=== PATIENT | male | born 1965 | race Caucasian/White ===

== ENCOUNTER 2021-05-08 02:43 | Day surgery (SDC) | payer BC, SELFPAY ==
[2021-05-01 14:41] VITALS: BMI 27.1
--- NOTE | 2021-05-06 13:14 | PM.HPGS ---
History of Present Illness History of Present Illness Consent: Risks, benefits, and alternatives have been discussed and questions answered. Patient agrees to proceed with procedure. Chief complaint: GERD Narrative: Michael Ledbetter is a 55 year old male referred for investigation of Suspected reflux. a year ago he had an EGD elsewhere and was told that he had reflux and a hiatal hernia. A month after that he was started on pantoprazole. He has taking that ever since then. Now however for the past few months, he has had pain every several days that will be a transverse pain across the upper abdomen accompanied by an upwards pain just to the left of the midline of his chest. He states that is not heartburn. The pain will last all day, sometimes 2 days. He has also lost 35 lb and attributes this to the fact that he has no appetite. trying to eat makes him nauseated. He has been on pantoprazole 40 mg per day. He also takes sucralfate. He recently had a Cologuard test that was negative. He had been referred for colonoscopy as well, but became aware of the fact that insurance will pay for 1 or the other but not both in the same year. Review of Systems Review of Systems: All systems reviewed & are unremarkable except as noted in HPI and below PMFSH Past Medical History Medical History CAD (coronary artery disease) HTN (hypertension) Hyperlipidemia Overweight Surgical History Surgical History History of coronary artery stent placement Social History Social History Smoking packs per day: 1 Smoking cigarettes per day: 20.0 Years smoked: 34 Smoking pack-years: 34.00 Smoking status: Former smoker Tobacco type: cigarettes Alcohol intake: former Substance use: never Substance use type: does not use Living arrangements: with family Spiritual care concerns: No Meds Home Medications and Allergies Home Medications Medication Instructions Recorded Confirmed Type amlodipine 2.5 mg PO HS 05/01/21 05/01/21 History atorvastatin 40 mg PO HS 05/01/21 05/01/21 History carvedilol 3.125 mg PO BID 05/01/21 05/01/21 History clopidogrel 75 mg PO DAILY 05/01/21 05/01/21 History nitroglycerin 0.4 mg SUBLINGUAL Q5-15M PRN 05/01/21 05/01/21 History pantoprazole 40 mg PO DAILY 05/01/21 05/01/21 History quinapril 20 mg PO BID 05/01/21 05/01/21 History sucralfate 0.5 g PO BID 05/01/21 05/01/21 History Allergies Allergy/AdvReac Type Severity Reaction Status Date / Time No Known Allergies Allergy Verified 05/08/21 06:28 Exam Resp: Auscultation: clear to auscultation bilaterally Cardio: Rate: regular rate Rhythm: regular rhythm GI: GI Palp: Yes Soft to palpation and No Tenderness to palpation present (GI) Assessment and Plan Assessment and plan (1) GERD (gastroesophageal reflux disease): Code(s): K21.9 - Gastro-esophageal reflux disease without esophagitis Status: Acute Assessment and Plan: EGD with possible biopsy or dilatation or cautery.
[2021-05-08 06:15] VITALS: BP 144/89; PULSE 63; RESP 18; TEMP 36.8; O2SAT 100; BMI 27.6
[2021-05-08] MEDS: LACTATED RINGERS 1,000 ML 150 ML IV CONT (06:43)
--- NOTE | 2021-05-08 06:54 | WPDANESEPPF ---
Anes - Initial Pre Proc Eval Procedure: Operation Date: 05/08/21 07:30 Proposed Procedures p Esophagogastroduodenoscopy - Brody Foster MD Date/Time: 05/08/21 06:54 Surgeon: Brody Foster MD Pre Op Diagnosis: GERD Patient Data Age: 55 Gender: M Height: 1.78 m Weight: 87.5 kg Last Vital Signs Temp 36.8 C 05/08/21 06:15 Pulse 63 05/08/21 06:15 Resp 18 05/08/21 06:15 BP 144/89 H 05/08/21 06:15 Pulse Ox 100 05/08/21 06:15 Allergies Allergy/AdvReac Type Severity Reaction Status Date / Time No Known Allergies Allergy Verified 05/08/21 06:28 Home Medications Medication Instructions Recorded Confirmed Type amlodipine 2.5 mg PO HS 05/01/21 05/01/21 History atorvastatin 40 mg PO HS 05/01/21 05/01/21 History carvedilol 3.125 mg PO BID 05/01/21 05/01/21 History clopidogrel 75 mg PO DAILY 05/01/21 05/01/21 History nitroglycerin 0.4 mg SUBLINGUAL Q5-15M PRN 05/01/21 05/01/21 History pantoprazole 40 mg PO DAILY 05/01/21 05/01/21 History quinapril 20 mg PO BID 05/01/21 05/01/21 History sucralfate 0.5 g PO BID 05/01/21 05/01/21 History Patient hx anesthesia problems: none Family hx anesthesia problems: none Results Review: All pre-operative results and documents have been reviewed as part of the pre-operative evaluation. [facility] Past Medical History Medical History (Updated 05/08/21 @ 06:55 by Cristian Alvarado MD) CAD (coronary artery disease) HTN (hypertension) Hyperlipidemia Overweight Surgical History Surgical History (Updated 05/08/21 @ 06:55 by Cristian Alvarado MD) History of coronary artery stent placement Social History Social History Smoking packs per day: 1 Smoking cigarettes per day: 20.0 Years smoked: 34 Smoking pack-years: 34.00 Smoking status: Former smoker Tobacco type: cigarettes Alcohol intake: former Substance use: never Substance use type: does not use Living arrangements: with family Spiritual care concerns: No Anes - Eval Final PreProcedure Day of Procedure 05/08/21 06:54 Patient weight: overweight Heart: regular rate and rhythm Lungs: clear to auscultation Airway: Mallampati scale class II Neurological: alert and oriented Last oral intake: >/= 8 hours ASA classification: III Emergent: no Anesthetic plan: proceed Anesthesia type and monitoring: general GIVS and standard monitoring Results Review: All pre-operative results and documents have been reviewed as part of the pre-operative evaluation. Informed Consent: The patient's anesthetic plan and its attendant risks and benefits were discussed with the patient/family/POA. Questions were solicited and answers provided to the satisfaction of the patient/family/POA.
[2021-05-08 07:38] VITALS: BP 112/78; PULSE 69; RESP 20; O2SAT 97
[2021-05-08 07:48] VITALS: BP 119/85; PULSE 57; RESP 21; O2SAT 100
[2021-05-08 07:58] VITALS: BP 139/92; PULSE 52; RESP 21; O2SAT 100
== END 2021-05-08 08:10 | disposition home or self-care (01) ==
PROVIDERS: PCP Internal Medicine; Visit Provider Internal Medicine Gastroenterology
PROC: 0DJ08ZZ Inspection of Upper Intestinal Tract, Via Natural or Artificial Opening Endoscopic (ICD-10-PCS; CPT 43235; principal; 2021-05-08 07:30)
DX: K21.9 Gastro-esophageal reflux disease without esophagitis (principal); I10 Essential (primary) hypertension; I25.10 Atherosclerotic heart disease of native coronary artery without angina pectoris; E78.5 Hyperlipidemia, unspecified; Z79.02 Long term (current) use of antithrombotics/antiplatelets; Z87.891 Personal history of nicotine dependence
CPT/HCPCS: 43239; 88305; J2704; J7120

== ENCOUNTER 2021-07-12 09:35 | Outpatient (CLI) | payer BC, SELFPAY ==
--- NOTE | 2021-07-12 | EST_ITS ---
Patient Info Name: Michael Gregg White Age: 55 years : 1965 Gender: Male Ht: 70 in Wt: 191 lbs BSA: 2.08 m2 HR: 64 bpm BP: 141 / 86 mmHg Heart Rhythm: Sinus Rhythm Exam Date: 07/12/2021 10:45 AM Exam Location: [facility] Stress Patient Status: Outpatient Admit Date: 07/12/2021 Staff Ordering Physician: Jeferson Brooks MD Attending Provider: Jeferson Brooks MD Exercise Technologist: Margarita Paulino, CT Exam Type: CA stress carolee w NM Study Info Indications R07.9 - Chest pain, unspecified A regadenoson stress test was performed. Summary 1. Normal sinus rhythm - normal ECG. 2. No abnormal ST/T-wave changes with Lexiscan. 3. Occasional PACs. 4. Occasional PVCs. 5. Clinically and electrocardiographically unremarkable Lexiscan stress test. 6. Myocardial perfusion imaging exam to be reported by Radiology. Protocol: Lexiscan Stress ECG Details Stage: REST Duration (min): 1 min : 24 sec HR (bpm): 66 SBP (mmHg): 141 DBP (mmHg): 86 Stage: REST Duration (min): 5 min : 49 sec HR (bpm): 66 SBP (mmHg): 141 DBP (mmHg): 86 Stage: STAGE 1 Duration (min): 0 min : 59 sec HR (bpm): 114 SBP (mmHg): 143 DBP (mmHg): 99 Stage: RECOVERY Duration (min): 1 min : 0 sec HR (bpm): 116 SBP (mmHg): 143 DBP (mmHg): 99 Stage: RECOVERY Duration (min): 2 min : 0 sec HR (bpm): 109 SBP (mmHg): 143 DBP (mmHg): 99 Stage: RECOVERY Duration (min): 3 min : 0 sec HR (bpm): 101 SBP (mmHg): 125 DBP (mmHg): 95 Stage: RECOVERY Duration (min): 4 min : 0 sec HR (bpm): 98 SBP (mmHg): 125 DBP (mmHg): 95 Stage: RECOVERY Duration (min): 4 min : 7 sec HR (bpm): 100 SBP (mmHg): 125 DBP (mmHg): 95 Rest HR: 66 bpm Peak HR: 116 bpm Rest Sys BP: 141 mmHg Peak Sys BP: 143 mmHg Max Pred HR: 164 bpm % Max Pred HR: 71 % Target HR: 139 bpm Max RPP: 16,588 bpm*mmHg Termination Reason: Completed protocol Cardiac Symptoms: None Total Time: 1 min : 0 sec Rest Taylor BP: 86 mmHg Peak Taylor BP: 99 mmHg Total Dose: 0.4 mg Resting ECG Normal sinus rhythm - normal ECG. Stress ECG No abnormal ST/T-wave changes with Lexiscan. Arrhythmias Occasional PACs. Occasional PVCs. Report Signatures
--- NOTE | ~2021-07-12 | NM_ITS ---
EXAMINATION: NM carolee stress w perfusion DATE: 07/12/2021 12:37 INDICATION: Coronary atherosclerosis. TECHNIQUE: Rest images were obtained following intravenous administration of 9 mCi Tc99m tetrofosmin (Myoview). The patient was infused intravenously with Lexiscan (regadenoson). Then, 20.3 mCi Tc99m te trofosmin (Myoview) was administered intravenously, and stress images were obtained. Data was reconst ructed into short axis and horizontal and vertical long axis SPECT images. Gated SPECT images were al so obtained. COMPARISON: None. FINDINGS: There is no definite reversible or fixed perfusion abnormality to suggest ischemia or infar ction. There is no segmental wall motion abnormality. Left ventricular ejection fraction measures 5 7%. IMPRESSION: 1. No definite ischemia or infarct. 2. Normal left ventricular ejection fraction measuring 57%. Reviewed, dictated and finalized at location B.
== END 2021-07-12 09:36 | disposition home or self-care (01) ==
LOC: ANHCARD 09:37
PROVIDERS: PCP Internal Medicine; Visit Provider Internal Medicine Cardiovascular Disease
DX: E78.2 Mixed hyperlipidemia (principal); I25.118 Atherosclerotic heart disease of native coronary artery with other forms of angina pectoris; I10 Essential (primary) hypertension; R07.9 Chest pain, unspecified
CPT/HCPCS: 78452; 93017; A9502; J2785

== ENCOUNTER 2022-01-03 15:21 | Outpatient (CLI) | payer BC, SELFPAY ==
[2022-01-03 16:11] LABS: Alanine Aminotransferase 36 U/L (6-50); Albumin Level 4.8 g/dL (3.5-5.1); Alkaline Phosphatase 41 U/L (38-126); Amylase 84 U/L (30-110); Aspartate Amino Transferase 27 U/L (17-59); Bilirubin,Total 0.7 mg/dL (0.2-1.3); Lipase 82 U/L (23-300)
== END 2022-01-03 15:22 | disposition home or self-care (01) ==
LOC: ANHSURGERY 15:27
PROVIDERS: PCP Internal Medicine; Visit Provider Surgery
DX: K80.10 Calculus of gallbladder with chronic cholecystitis without obstruction (principal); Z01.818 Encounter for other preprocedural examination
CPT/HCPCS: 36415; 80076; 82150; 83690; 86850; 86900; 86901

== ENCOUNTER 2022-01-09 01:11 | Day surgery (SDC) | payer BC, SELFPAY ==
[2022-01-01 14:14] VITALS: BMI 28.4
--- NOTE | 2022-01-01 14:56 | PC.NURSE ---
Report to the Outpatient Waiting Room, entrance under the green pavilion located off [facility], at time _1230_ on date _01/09/22. OR Time: _1430_ Time changes happen often and if your time is changed the preop area will call you the afternoon before. - You and your visitor will be asked to self-screen and do not enter if you have any COVID symptoms. - We encourage only one visitor and NO visitors under age 16 are allowed at this time. Your visitor will receive communication by the phone number that is given day of service. - THE SURGERY WAITING ROOM IS OPEN TO VISITORS. The patient visitor is requested to social distance OR may leave the building when not with patient due to restrictions. - A mask is required within the hospital. Patients may have clear liquids (water, carbonated beverages, clear teas, apple juice) until 3 hours prior to surgery with a maximum of 20 ounces. - No food from midnight until time of surgery - Take the following medications with a SIP of water the morning of surgery: _ TAKE THE FOLLOWING IF THEY ARE PART OF YOUR NORMAL MORNING ROUTINE FOR MEDICINES: AMLODIPINE, CARVEDILOL, PANTOPRAZOLE, NITROGLYCERINE IF NEEDED_- Medications to discontinue per physician __HOLD YOUR PLAVIX FOR 5 DAYS BEFORE SURGERY 01/04/22; DO NOT TAKE YOUR QUINAPRIL THE MORNING OF SURGERY Date to take last dose__HOLD PLAVIX 01/04/22 Please no make-up, nail latvian, hairspray, perfume, deodorant, or body powder the day of surgery. No jewelry (including any body piercings) or valuables the day of surgery, leave them at home. Please take a shower or bath the night before, or the morning of, surgery with an antibacterial soap CALLED CHLORHEXIDINE GLUCONATE ALSO CALLED HIBICLENS. Wear comfortable, loose fitting clothing. Children are encouraged to wear pajamas. - Jewelry must be removed prior to entering the operating room. Rings and piercings that are not removed may be cut off. - The hospital will not accept responsibility for valuables. - Please leave all valuables, including medications, at home the day of surgery. If you are going home after surgery, a licensed route driver salesperson must drive you home. - NO public transportation without another adult. - We recommend that an adult stay with you for 24 hours following discharge. - We also recommend that you do not drive, make important decision, drink alcoholic beverages, or take any drugs that were not prescribed by your health care provider for at least 24 hours after your discharge time. Follow any additional instructions given to you from your surgeon. If you or anyone in your household have experienced Covid symptoms in the past week, please notify your surgeon or the nurse liaison at the phone number below for possible testing. Telephone instructions given to _FRANK and asked if any additional questions and then verbalized understanding. Patient advised to call surgeon office or pre surgery nurse liaison [phone] if any additional questions.
--- NOTE | 2022-01-08 10:37 | P.PNAN_ITS ---
Anes - Initial Pre Proc Eval Procedure: Operation Date: 01/09/22 14:30 Proposed Procedures p Robotic Cholecystectomy - Adamaris Rosado MD Date/Time: 01/08/22 10:37 Surgeon: Adamaris Rosado MD Pre Op Diagnosis: chronic cholecystitis with calculus Patient Data Age: 56 Gender: M Height: 1.78 m Weight: 90 kg Allergies Allergy/AdvReac Type Severity Reaction Status Date / Time No Known Allergies Allergy Verified 01/09/22 13:49 Home Medications Medication Instructions Recorded Confirmed Type amlodipine 2.5 mg tablet 2.5 mg PO HS 05/01/21 01/01/22 History atorvastatin 80 mg tablet 40 mg PO HS 05/01/21 01/01/22 History carvedilol 3.125 mg tablet 3.125 mg PO BID 05/01/21 01/01/22 History clopidogrel 75 mg tablet 75 mg PO DAILY 05/01/21 01/01/22 History nitroglycerin 0.4 mg sublingual 0.4 mg sublingual Q5-15M PRN Angina 05/01/21 01/01/22 History tablet quinapril 20 mg tablet 20 mg PO BID 05/01/21 01/01/22 History pantoprazole 40 mg tablet,delayed 40 mg PO DAILY 01/01/22 01/01/22 History release Patient hx anesthesia problems: none Family hx anesthesia problems: none Results Review: All pre-operative results and documents have been reviewed as part of the pre- operative evaluation. [facility] Past Medical History Medical History (Updated 01/08/22 @ 10:38 by Chacho García DO) CAD (coronary artery disease) GERD (gastroesophageal reflux disease) HTN (hypertension) Hyperlipidemia Overweight Surgical History Surgical History (Updated 01/08/22 @ 10:38 by Chacho García DO) History of coronary artery stent placement x2, 2017 Family History Family History Other Cerebrovascular accident Diabetes mellitus Social History Social History Smoking packs per day: 0.5 Smoking cigarettes per day: 10.0 Years smoked: 25 Smoking pack-years: 12.50 Smoking status: Former smoker Tobacco type: cigarettes Alcohol intake: current Alcohol use details: Socially Substance use: never Substance use type: does not use Last use: 02/2021 Living arrangements: with family Spiritual care concerns: No Anes - Eval Final PreProcedure Day of Procedure 01/08/22 10:37 Patient weight: overweight Heart: regular rate and rhythm Lungs: clear to auscultation Airway: Mallampati scale class II Neurological: alert and oriented Last oral intake: >/= 8 hours ASA classification: III Emergent: no Anesthetic plan: proceed Anesthesia type and monitoring: general ETT and standard monitoring Results Review: All pre-operative results and documents have been reviewed as part of the pre- operative evaluation. Informed Consent: The patient's anesthetic plan and its attendant risks and benefits were discussed with the patient/family/POA. Questions were solicited and answers provided to the satisfaction of the patient/family/POA.
[2022-01-09] VITALS (10 sets, daily range): BP systolic 129–174; BP diastolic 83–108; PULSE 48–90; RESP 12–16; TEMP 36.3–36.6; O2SAT 93–100
--- NOTE | 2022-01-09 12:54 | WPDHPUPDATE1 ---
History and Physical Update Update Date/Time: 01/09/22 12:54 History and Physical has been reviewed, including an updated exam of the patient. There are NO changes in the patient's condition. Risks, benefits, and alternatives have been discussed and questions answered. Patient agrees to proceed with procedure.
[2022-01-09] MEDS: INDOCYANINE GREEN 25 MG VIAL IV PUSH (13:37)
[2022-01-09] MEDS: ACETAMINOPHEN 500 MG TABLET 1000 MG PO (13:40)
[2022-01-09] MEDS: LACTATED RINGERS 1,000 ML 30 ML IV CONT ×2 (13:40→16:32)
[2022-01-09] MEDS: KETOROLAC 15 MG/ML VIAL (*BKC) IV PUSH (13:40)
[2022-01-09] MEDS: ceFAZolin 2 GM/D5W 50 ML 2 GM/50 ML BAG IVPB (15:39)
[2022-01-09] MEDS: BUPIVACAINE/EPINEPHRINE 0.25% 50 ML VIAL 30 ML INFILTRATE (16:03)
[2022-01-09] MEDS: ONDANSETRON INJ 4 MG/2 ML VIAL IV PUSH (16:39)
--- NOTE | 2022-01-09 16:41 | W.PM.PROC2 ---
Procedure Note - Detailed Date of Procedure 01/09/22 Pre-op Diagnosis chronic cholecystitis with calculus Post-op Diagnosis Same Procedure Performed Laparoscopic cholecystectomy with near infrared indocyanine green fluorescent cholangiography Surgeon Adamaris Rosado MD Anesthesia General Indications 56-year-old male presenting to the office complaining of press prandial bloating, pain. Workup, including imaging, significant for chronic cholecystitis, cholelithiasis. Findings chronic cholecystitis Description of Procedure The patient was taken to the operating room placed in the supine position. After adequate induction of general anesthesia, the patient was prepped and draped in normal sterile fashion. A time-out was then performed to verify the patient's identity as well as the procedure being performed. I then made a 5 mm incision in the infraumbilical region. Through this, a Veress needle was placed into the peritoneal cavity and CO2 gas was then insufflated. After adequate pneumoperitoneum was achieved, the Veress needle was removed and a 5 mm optiview trocar was placed through this incision under direct visualization. I then placed the laparoscope through this trocar site and under direct visualization placed a further 12 mm subxiphoid port as well as 2 additional 5 mm ports in the right upper abdomen. The gallbladder was then identified and was noted to be moderately inflamed and distended. I was able to place a grasper at the dome of the gallbladder and this was retracted anterior and cephalad up over the liver. A 2nd retractor was then placed at the infundibulum and retracted laterally, this allowed visualization of the triangle of Calot. I then was able to visualize the cystic duct in its entirety from its proximal insertion into the gallbladder, to its distal junction with the common hepatic/common bile duct junction. At this point, I carefully skeletonized the proximal cystic duct with the [place] dissector. I then proceeded with the near infrared fluorescent cholangiogram by using the firefly technology on the laparoscope. Through this visualization, was able to identify and verify the anatomy as previously described. I then clipped and transected the proximal cystic duct. Next I visualized the cystic artery. Again the artery was skeletonized, clipped, and transected. I then used the Bovie cautery to take down the peritoneal attachments of the gallbladder off the liver bed. Once the gallbladder specimen was completely detached, an endo-pouch was placed through the 12 mm port site. I then placed the gallbladder specimen into the Endo pouch and removed the endo-pouch from the 12 mm port site. The specimen will now be sent to pathology for further review. I then copiously irrigated the right upper quadrant. Hemostasis was noted in the liver bed, the clips were noted to be in good position on both the cystic duct stump and the cystic artery stump. No other pathology was noted in the right upper quadrant. I then moved the laparoscope to the subxiphoid port. No iatrogenic injury or other pathology was noted in the lower abdomen. I then closed the 12 mm trocar site under direct visualization using the Tino cone and 0 Vicryl suture. At this point, the abdomen was desufflated and all ports removed. All port sites were then closed with 4.O Monocryl subcuticular sutures. Dermabond was placed on each incision. The patient tolerated the procedure well, was extubated in the operating room postoperative and will be transferred to the recovery room in stable condition Estimated Blood Loss 5 Drains No Packing No Pathology Yes Complications No immediate complications Condition Stable Disposition PACU [facility] Billing Surgery - Charge Forward: Surgery Billing
[2022-01-09] MEDS: fentaNYL CITRATE INJ (*CRX) 100 MCG/2 ML VIAL 25 MCG IV PUSH ×6 (16:46→17:28)
[2022-01-09] MEDS: HYDROmorphone HCL INJ (*CRX) 1 MG/ML SYR 0.5 MG IV PUSH ×2 (17:36→17:45)
[2022-01-09] MEDS: oxyCODONE HCL (*CRX) 5 MG TAB IR PO (18:14)
== END 2022-01-09 19:20 | disposition home or self-care (01) ==
PROVIDERS: PCP Internal Medicine; Visit Provider Surgery
PROC: 0FT44ZZ Resection of Gallbladder, Percutaneous Endoscopic Approach (ICD-10-PCS; CPT 47562; principal; 2022-01-09 14:30)
DX: K80.10 Calculus of gallbladder with chronic cholecystitis without obstruction (principal); D13.5 Benign neoplasm of extrahepatic bile ducts; I25.10 Atherosclerotic heart disease of native coronary artery without angina pectoris; I10 Essential (primary) hypertension; K21.9 Gastro-esophageal reflux disease without esophagitis; E78.5 Hyperlipidemia, unspecified; Z79.02 Long term (current) use of antithrombotics/antiplatelets; Z87.891 Personal history of nicotine dependence
CPT/HCPCS: 47562; 88304; A9270; J0690; J1100; J1170; J1885; J2250; J2405; J2704; J3010; J7030; J7120

== ENCOUNTER 2022-05-09 08:13 | Outpatient (CLI) | payer BC, SELFPAY ==
--- NOTE | ~2022-05-09 | CT_ITS ---
EXAMINATION: CT abdomen pelvis w con INDICATION: Left lower quadrant pain TECHNIQUE: Computed tomographic images of the abdomen and pelvis were obtained after the administrati on of 100 cc of Omnipaque 350 intravenous contrast. The dose-length product (DLP) was 735.71 mGy-cm. Automated exposure control and iterative reconstruction technique were employed. COMPARISON: None available FINDINGS: Minimal dependent atelectasis is present in the lung bases. The heart size is normal. Punct ate calcifications in an otherwise normal spleen likely represent healed granulomatous disease. The g allbladder is surgically absent. The liver, pancreas, and adrenal glands are normal. Hypoattenuating lesions in the right kidney, measuring up to 3 mm, are too small to characterize but likely represent cysts. The left kidney is unremarkable. There is calcified atherosclerosis of the aorta and many of the other arteries. No pathologically enlarged abdominal or pelvic lymph nodes are identified. No emily e intraperitoneal gas or evidence of bowel obstruction. The appendix is normal. There is moderate lum bar spondylosis at L5-S1. A fat-containing umbilical hernia is noted. IMPRESSION: 1. No CT correlate for the patient's symptoms. Reviewed, dictated and finalized at location B. X [employer]CH[employer]IST
[2022-05-09 09:13] LABS: Estimated Glomerular Filt Rate > 60
== END 2022-05-09 08:14 | disposition home or self-care (01) ==
LOC: ANHIMG 08:16
PROVIDERS: PCP Family Medicine; Visit Provider Nurse Practitioner
DX: R10.32 Left lower quadrant pain (principal)
CPT/HCPCS: 74177; Q9967

== ENCOUNTER 2022-07-01 13:44 | Outpatient (CLI) | payer BC, SELFPAY ==
--- NOTE | ~2022-07-01 | XR_ITS ---
XR abdomen/kub 1V 07/01/2022 14:00 INDICATION: Abdominal pain TECHNIQUE: KUB COMPARISON: CT dated 05/09/2022 FINDINGS: Bowel gas pattern is normal. There are cholecystectomy clips. There is no evidence of free air, mass, organomegaly, ascites or obstruction. No abnormal calculi are seen. The bones appear int act. IMPRESSION: 1: No acute abdominal abnormality identified. Reviewed, dictated and finalized at location L.
== END 2022-07-01 13:45 | disposition home or self-care (01) ==
LOC: ANHIMG 13:50
PROVIDERS: PCP Family Medicine; Visit Provider Internal Medicine Gastroenterology
DX: R14.0 Abdominal distension (gaseous) (principal); R10.9 Unspecified abdominal pain
CPT/HCPCS: 74018

== ENCOUNTER 2022-12-23 17:07 | Outpatient (CLI) | payer BC, SELFPAY ==
--- NOTE | ~2022-12-23 | XR_ITS ---
Clinical Indication: Dyspnea PA and lateral views of the chest: Comparison: 10/03/2017 Findings: Stable calcified right apical granuloma. The lungs are otherwise clear, without evidence of focal consolidation or pleural effusion. Cardiomediastinal silhouette is within normal limits. Bone s and soft tissues are unremarkable. Impression: No acute abnormality. Reviewed, dictated and finalized at location . Impression: No acute abnormality.
== END 2022-12-23 17:08 | disposition home or self-care (01) ==
PROVIDERS: PCP Family Medicine; Visit Provider Family Medicine
DX: R06.00 Dyspnea, unspecified (principal)
CPT/HCPCS: 71046

== ENCOUNTER 2024-01-05 01:35 | Day surgery (SDC) | payer BC, SELFPAY ==
[2023-12-23 14:13] VITALS: BMI 31.6
--- NOTE | 2023-12-23 14:22 | PC.NURSE ---
Spoke with pt regarding stopping Plavix, last dose being 12/31/23. Pt stated understanding.
[2024-01-05 12:56] VITALS: BP 151/100; PULSE 74; RESP 20; TEMP 36.1; O2SAT 98; BMI 31.1
[2024-01-05] MEDS: LACTATED RINGERS 1,000 ML 150 ML IV CONT (13:07)
[2024-01-05 13:13] VITALS: BP 126/84
--- NOTE | 2024-01-05 13:23 | WPDANESEPPF ---
Anes - Initial Pre Proc Eval Procedure: Operation Date: 01/05/24 14:00 Proposed Procedures p Colonoscopy - Ferdinand Stuart MD Date/Time: 01/05/24 13:23 Surgeon: Ferdinand Stuart MD Pre Op Diagnosis: LLQ Pain & Abd Distension Patient Data Age: 58 Gender: M Height: 1.78 m Weight: 98.3 kg Last Vital Signs Temp 36.1 C L 01/05/24 12:56 Pulse 74 01/05/24 12:56 Resp 20 01/05/24 12:56 BP 126/84 01/05/24 13:13 Pulse Ox 98 01/05/24 12:56 O2 Del Method Room Air 01/05/24 12:56 Allergies Allergy/AdvReac Type Severity Reaction Status Date / Time No Known Allergies Allergy Verified 01/05/24 12:51 Home Medications Medication Instructions Recorded Confirmed Type atorvastatin 80 mg tablet 40 mg PO HS 05/01/21 01/05/24 History carvedilol 3.125 mg tablet 3.125 mg PO BID 05/01/21 01/05/24 History clopidogrel 75 mg tablet 75 mg PO DAILY 05/01/21 01/05/24 History nitroglycerin 0.4 mg sublingual 0.4 mg sublingual Q5-15M PRN Angina 05/01/21 01/05/24 History tablet aspirin 81 mg tablet,delayed 81 mg PO DAILY 04/30/22 01/05/24 History release simethicone 500 mg capsule 500 mg PO DAILY 11/25/23 01/05/24 History (Phazyme) guanfacine 1 mg tablet 1 mg PO DAILY 12/23/23 01/05/24 History losartan 100 mg tablet 100 mg PO DAILY 12/23/23 01/05/24 History acetaminophen 325 mg capsule 650 mg PO Q4-6H PRN Pain 01/05/24 01/05/24 History (Tylenol) Patient hx anesthesia problems: none Family hx anesthesia problems: none Results Review: All pre-operative results and documents have been reviewed as part of the pre-operative evaluation. [facility] Past Medical History Medical History Arthritis CAD (coronary artery disease) COPD (chronic obstructive pulmonary disease) Diabetes GERD (gastroesophageal reflux disease) Heart disease HTN (hypertension) Hyperlipidemia IBS (irritable bowel syndrome) Left groin pain Nausea Nonerosive esophageal reflux disease Overweight Surgical History Surgical History History of coronary artery stent placement x2, 2018 Hx laparoscopic cholecystectomy 01/09/2022 - laparoscopic cholecystectomy with near infrared indocyanine green fluorescent cholangiography Family History Family History Mother Diabetes mellitus Hypertension Cerebrovascular accident Father Diabetes mellitus Social History Social History Smoking packs per day: 1 Smoking cigarettes per day: 20.0 Years smoked: 30 Smoking pack-years: 30.00 Smoking status: Former smoker Tobacco type: cigarettes Alcohol intake: current Alcohol use details: 3 Beers to a case per week Substance use: never Substance use type: does not use Last use: 02/2021 Do You Feel Safe in your Home?: Yes Lack of Transportation: No Lack of Food: Never True Current Housing: I Have Housing Concerned About Future Housing: No Difficulty Paying Gas/Electric Bills: No Difficulty Paying for Meds: No Currently Unemployed: No Education: Trade/Vocational Certificate Difficulty w/ Childcare or Family Care: No Living arrangements: with family Occupation/Education: occupation Gender identity (if verbalized by the patient): Male Sexual Orientation (if Verbalized by the Patient): Straight or Heterosexual Spiritual care concerns: No Anes - Eval Final PreProcedure Day of Procedure 01/05/24 13:23 Patient weight: obese Heart: regular rate and rhythm Lungs: clear to auscultation Airway: Mallampati scale class II Neurological: alert and oriented Last oral intake: >/= 8 hours ASA classification: III Emergent: no Anesthetic plan: proceed Anesthesia type and monitoring: general GIVS and standard monitoring Results Review: All pre-operative results a
--- NOTE | 2024-01-05 14:03 | PM.HPGS ---
History of Present Illness History of Present Illness Consent: Risks, benefits, and alternatives have been discussed and questions answered. Patient agrees to proceed with procedure. Chief complaint: LLQ Pain & Abd Distension Narrative: Michael Ledbetter is a 58 year old male here for first colonoscopy, h/o bloating, trial of xifaxan did not help, CT scan no major findings. Review of Systems Review of Systems: All systems reviewed & are unremarkable except as noted in HPI and below PMFSH Past Medical History Medical History Arthritis CAD (coronary artery disease) COPD (chronic obstructive pulmonary disease) Diabetes GERD (gastroesophageal reflux disease) Heart disease HTN (hypertension) Hyperlipidemia IBS (irritable bowel syndrome) Left groin pain Nausea Nonerosive esophageal reflux disease Overweight Surgical History Surgical History History of coronary artery stent placement x2, 2018 Hx laparoscopic cholecystectomy 01/09/2022 - laparoscopic cholecystectomy with near infrared indocyanine green fluorescent cholangiography Family History Family History Mother Diabetes mellitus Hypertension Cerebrovascular accident Father Diabetes mellitus Social History Social History Smoking packs per day: 1 Smoking cigarettes per day: 20.0 Years smoked: 30 Smoking pack-years: 30.00 Smoking status: Former smoker Tobacco type: cigarettes Alcohol intake: current Alcohol use details: 3 Beers to a case per week Substance use: never Substance use type: does not use Last use: 02/2021 Do You Feel Safe in your Home?: Yes Lack of Transportation: No Lack of Food: Never True Current Housing: I Have Housing Concerned About Future Housing: No Difficulty Paying Gas/Electric Bills: No Difficulty Paying for Meds: No Currently Unemployed: No Education: Trade/Vocational Certificate Difficulty w/ Childcare or Family Care: No Living arrangements: with family Occupation/Education: occupation Gender identity (if verbalized by the patient): Male Sexual Orientation (if Verbalized by the Patient): Straight or Heterosexual Spiritual care concerns: No Meds Home Medications and Allergies Home Medications Medication Instructions Recorded Confirmed Type atorvastatin 80 mg tablet 40 mg PO HS 05/01/21 01/05/24 History carvedilol 3.125 mg tablet 3.125 mg PO BID 05/01/21 01/05/24 History clopidogrel 75 mg tablet 75 mg PO DAILY 05/01/21 01/05/24 History nitroglycerin 0.4 mg sublingual 0.4 mg sublingual Q5-15M PRN Angina 05/01/21 01/05/24 History tablet aspirin 81 mg tablet,delayed 81 mg PO DAILY 04/30/22 01/05/24 History release simethicone 500 mg capsule 500 mg PO DAILY 11/25/23 01/05/24 History (Phazyme) guanfacine 1 mg tablet 1 mg PO DAILY 12/23/23 01/05/24 History losartan 100 mg tablet 100 mg PO DAILY 12/23/23 01/05/24 History acetaminophen 325 mg capsule 650 mg PO Q4-6H PRN Pain 01/05/24 01/05/24 History (Tylenol) Allergies Allergy/AdvReac Type Severity Reaction Status Date / Time No Known Allergies Allergy Verified 01/05/24 12:51 Vital Signs Vital Signs - 24 hr 01/05/24 12:56 01/05/24 13:13 Temperature 96.9 F L Pulse Rate 74 Respiratory Rate 20 Blood Pressure 151/100 H 126/84 Pulse Oximetry 98 Oxygen Delivery Room Air Exam Const: General: comfortable and no acute distress HENMT: Face/Nose/Sinus: Normal nares present Eyes: General: appearance normal, both eyes and all related structures Neck: Neck: no JVD Resp: Auscultation: clear to auscultation bilaterally Cardio: Rate: regular rate Rhythm: regular rhythm GI: Inspection: non-distended GI Palp: Yes Soft to palpation Skin: General skin exam: normal color Neuro:
[2024-01-05 14:24] VITALS: BP 98/61; PULSE 70; RESP 19; O2SAT 96
[2024-01-05 14:34] VITALS: BP 114/70; PULSE 60; RESP 20; O2SAT 99
[2024-01-05 14:44] VITALS: BP 113/79; PULSE 62; RESP 15; O2SAT 99
== END 2024-01-05 14:56 | disposition home or self-care (01) ==
PROVIDERS: PCP Family Medicine; Referring Provider Nurse Practitioner Family; Visit Provider Internal Medicine Gastroenterology
PROC: 0DJD8ZZ Inspection of Lower Intestinal Tract, Via Natural or Artificial Opening Endoscopic (ICD-10-PCS; CPT 45378; principal; 2024-01-05 14:00)
DX: Z12.11 Encounter for screening for malignant neoplasm of colon (principal); D12.4 Benign neoplasm of descending colon; E78.5 Hyperlipidemia, unspecified; K58.9 Irritable bowel syndrome, unspecified; E11.9 Type 2 diabetes mellitus without complications; K21.9 Gastro-esophageal reflux disease without esophagitis; I25.10 Atherosclerotic heart disease of native coronary artery without angina pectoris; J44.9 Chronic obstructive pulmonary disease, unspecified; I11.9 Hypertensive heart disease without heart failure; E66.9 Obesity, unspecified; Z68.31 Body mass index [BMI] 31.0-31.9, adult; Z79.02 Long term (current) use of antithrombotics/antiplatelets; Z79.82 Long term (current) use of aspirin; Z98.890 Other specified postprocedural states; Z90.49 Acquired absence of other specified parts of digestive tract; Z95.5 Presence of coronary angioplasty implant and graft; Z87.891 Personal history of nicotine dependence; Z82.49 Family history of ischemic heart disease and other diseases of the circulatory system
CPT/HCPCS: 45385; 88305; J2003; J2704; J7120

== ENCOUNTER 2024-01-08 06:43 | Outpatient (CLI) | payer BC, SELFPAY ==
--- NOTE | ~2024-01-08 | CT_ITS ---
CT of the Abdomen and Pelvis: Indication: Hematuria Technique: 2.5 mm axial scans were obtained through the abdomen and pelvis prior to and following in travenous administration of 130 cc of Omnipaque 350. Dose reduction technique was used on this scan b y utilizing automated exposure control and iterative reconstruction technique. The dose-length produc t (DLP) was 2433.30 mGy-cm. COMPARISON: 05/09/2022 Findings: Scans through the lung bases are unremarkable. The liver, spleen, pancreas, adrenals and kidneys are within normal limits. Cholecystectomy clips are present. There are atherosclerotic calcifications of the aorta. No lymphadenopathy. No bowel obstruction or bowel wall thickening. There is no evidence to suggest acute appendicitis. Images through the pelvis were performed. Urinary bladder unremarkable. Prostate gland is enlarged. N o pelvic mass seen otherwise. No ascites. Impression: No etiology for hematuria identified. Enlarged prostate gland. Reviewed, dictated and finalized at [facility]. Impression: No etiology for hematuria identified. Enlarged prostate gland.
--- NOTE | ~2024-01-08 | CT_ITS ---
CT Scan of the Chest without Contrast: Clinical Indication: Lung cancer screening, nicotine dependence Technique: Contiguous sections were acquired throughout the chest without intravenous contrast. Dose reduction technique was used on this scan by utilizing automated exposure control and iterative recon struction technique. The dose-length product (DLP) was 171.89 mGy-cm. Findings: There is no evidence of any significant mediastinal, hilar or axillary lymphadenopathy. Calcified med iastinal lymph nodes are present. Coronary artery calcifications are present. There is no evidence of pleural or pericardial effusion. The lungs are clear, aside from calcified right upper lobe granulomas. Images through the upper abdomen reveal no abnormalities. Impression: Lung RADS 2: Benign appearance. 12 month follow-up screening CT advised. Reviewed, dictated and finalized at location . Impression: Lung RADS 2: Benign appearance. 12 month follow-up screening CT advised.
[2024-01-08 07:15] LABS: Estimated Glomerular Filt Rate > 60
== END 2024-01-08 06:44 | disposition home or self-care (01) ==
LOC: ANHIMG 06:47
PROVIDERS: PCP Family Medicine; Visit Provider Family Medicine
DX: Z12.2 Encounter for screening for malignant neoplasm of respiratory organs (principal); Z87.891 Personal history of nicotine dependence; N40.0 Benign prostatic hyperplasia without lower urinary tract symptoms
CPT/HCPCS: 71271; 74178; Q9967

== ENCOUNTER 2024-07-19 00:07 | Emergency (ER) | payer BC, SELFPAY ==
--- NOTE | ~2024-07-19 | XR_ITS ---
Clinical Indication: Chest pain PA and lateral views of the chest: Comparison: 12/23/2022 Findings: Stable calcified right upper lobe granuloma. The lungs are otherwise clear, without evidenc e of focal consolidation or pleural effusion. Cardiomediastinal silhouette is within normal limits. Bones and soft tissues are unremarkable. Impression: No acute abnormality. Reviewed, dictated and finalized at location . Impression: No acute abnormality.
--- NOTE | 2024-07-19 00:08 | ECG_ITS ---
Test Date: 2024-07-19 00:32:44 Measurements Intervals Bradley Rate: 67 P: 51 GA: 168 QRS: -29 QRSD: 110 T: 30 QT: 375 QTc: 398 Interpretive Statements SINUS RHYTHM DELAYED PRECORDIAL R/S TRANSITION BORDERLINE T WAVE ABNORMALITY- INFERIOR LEADS BASELINE ARTIFACT- I, III, AVR, AVL, V2-V3, V5-V6 BORDERLINE ECG No previous ECG available for comparison Electronically Signed On 07-19-2024 06:20:26 CDT by Keon Velez D.O.
--- OUTSIDE RECORDS SUMMARY | 2024-07-19 00:09 | XMS_ITS | CONTINUITY OF CARE DOCUMENT ---
Author Name tatiana simpson Address Unknown Organization [facility] Address [id number] [place] [address] [address] [place] [address] Phone [phone] Care Team Providers Care Captain Of Guards Name Role Phone Ezequiel WILLIS, Kelsy Unavailable [phone] WILLIS, QUINTON Unavailable [phone] FE WILLIS, QUINTON Unavailable [phone] INSURANCE PROVIDERS Payer name Policy type / Coverage type Claridge red libertarian ID [facility] [id number]
[2024-07-19 00:10] VITALS: BP 134/89; PULSE 63; RESP 16; TEMP 36.4; O2SAT 97
--- OUTSIDE RECORDS SUMMARY | 2024-07-19 00:10 | XMS_ITS | Continuity of Care Document ---
Author Organization [facility] Address [address] [place] [address] Phone Care Team Providers Care [place] Name Role Phone Tenorio OD, Emery Unavailable Unavailable Advance Directives Directive Yes / No Effective Date File Name No Information Encounters Encounter Description Practice Location Reason(s) For Visit Diagnoses Date Provider Providers Copied on Encounter [facility], [address], [place], [place], [id number], [place] tel:[phone] [facility] [place] No Information 3[address] 2 Tenorio OD Emery. [address] [place] , [address], [place], [address], [place]. tel:[phone] Family History Family Member Type Diagnosis Age At Onset No Information Payers Payer name Insurance type Covered alliance party ID Authoriza tion(s) [facility] [id number] Social History Type Description Quantity Date Captured [...]
--- OUTSIDE RECORDS SUMMARY | 2024-07-19 00:10 | XMS_ITS | Data Portability ---
Author Organization [facility] [employer], Main Office Address [address] [place] [address] Assessment No assessment recorded. Plan of Treatment Reminders Order Date Submit Date Provider Last Modified By Organization Details Last Modified Time Details Appointments None recorded. Lab HbA1c (hemoglobin A1c), blood 2023 024 ABDIRAHMAN Not available 4 09:39:59 BMP, serum or plasma 2023 024 [email or web address] Not available 4 11:38:06 lipid panel, serum 2023 024 ABDIRAHMAN Not available 4 09:39:57 hepatic function panel, serum 2023 024 ABDIRAHMAN Not available 4 09:39:58 PSA, total, serum or plasma 2023 024 ABDIRAHMAN Not available 4 09:40:00 vitamin D, 25-hydroxy, total, serum 2023 024 ABDIRAHMAN Not available 4 09:40:01 CBC w/ auto diff 2023 024 ABDIRAHMAN Not available 4 09:39:54 BMP, serum or plasma 2023 024 ABDIRAHMAN Not available 4 09:39:56 HbA1c (hemoglobin A1c), blood 2022 023 ABDIRAHMAN Not available 3 04:08:53 CBC w/ auto diff 2022 023 ABDIRAHMAN Not available 3 04:08:49 BMP, serum or plasma 2022 023 ABDIRAHMAN Not available 3 04:08:51 lipid panel, serum 2022 023 ABDIRAHMAN Not available 3 04:08:52 hepatic function panel, serum 2022 023 ABDIRAHMAN Not available 3 04:08:52 Referral None recorded. Procedures None recorded. Surgeries None recorded. Imaging LDCT, chest, for lung cancer screening - *Please call pt to schedule* 2023 024 [facility] (Imaging), [address], [place], [address], 4 08:37:19 Medication Orders prednisone 20 mg tablet 2022 023 [email or web address] [id number], [address], [place], [address], 3 09:29:10 famotidine 40 mg tablet 2022 023 [email or web address] [id number], [address], [place], [address], 3 08:16:35 Patient TargetsNo targets recorded. Patient InstructionsNo instructions recorded. Reason for Referral None Reported. Results Created Date Observation Date Name Description Value Unit Range Abnormal Flag Note LastModifiedBy Organization Detail LastModifiedTime 06/14/1906/13/2022 CBC/D IFF AMBIG UOUS DEFAU LT WBC 5.6 x10e3 /uL 3.4-10 .8 Not Available [facility] ([facility]) [address], [place], [address], 06/23/2022 16:11:23 06/14/19 23 06/13/2022 CBC/D IFF AMBIG UOUS DEFAU LT RBC 5.05 x10e6 /uL 4.14-5 .80 Not Available [facility] ([facility]) [address], [place], [address], 06/23/2022 16:11:23 06/14/19 23 06/13/2022 CBC/D IFF AMBIG UOUS DEFAU LT hemoglobin 15.2 g/dL 13.0-1 7.7 Not Available [facility] ([facility]) [address], [place], [address], 06/23/2022 16:11:23 06/14/19 23 06/13/2022 CBC/D IFF AMBIG UOUS DEFAU LT hematocrit 44.9 % 37.5-5 1.0 Not Available [facility] ([facility]) [address], [place], [address], 06/23/2022 16:11:23 06/14/19 23 06/13/2022 CBC/D IFF AMBIG UOUS DEFAU LT MCV 89 fL 79-97 Not Available [facility] ([facility]) [address], [place], [address], 06/23/2022 16:11:23 06/14/19 23 06/13/2022 CBC/D IFF AMBIG UOUS DEFAU LT MCH 30.1 pg 26.6-3 3.0 Not Available [facility] ([facility]) [address] [place], [address], 06/23/2022 16:11:23 06/14/19 23 06/13/2022 CBC/D IFF AMBIG UOUS DEFAU LT MCHC 33.9 g/dL 31.5-3 5.7 Not Available [facility] ([facility]) [address] [place], [address], 06/23/2022 16:11:23 06/14/19 23 06/13/2022 CBC/D IFF AMBIG UOUS DEFAU LT RDW 13.0 % 11.6-1 5.4 Not Available [facility] ([facility]) [address] [place], [address], 06/23/2022 16:11:23 06/14/19 23 06/13/2022 CBC/D IFF AMBIG UOUS DEFAU LT platelets 250 x10e3 /uL 150-45 0 Not Available [facility] ([facility]) [address], [place], [address], 06/23/2022 16:11:23 06/14/19 23 06/13/2022 CBC/D IFF AMBIG UOUS DEFAU LT neutrophils 62 % not estab. Not Available [facility] ([facility]) [address], [place], [address], 06/23/2022 16:11:23 06/14/19 23 06/13/2022 CBC/D IFF AMBIG UOUS DEFAU LT lymphs 25 % not estab. Not Available [facility] ([facility]) [address], [place], [address], 06/23/2022 16:11:23 06/14/19 23 06/13/2022 CBC/D IFF AMBIG UOUS DEFAU LT monocytes 9 % not estab. Not Available [facility] ([facility]) [address], [place], [address], 06/23/2022 16:11:23 06/14/19 23 06/13/2022 CBC/D IFF AMBIG UOUS DEFAU LT eos 3 % not estab. Not Available [facility] ([facility]) [address], [place], [address], 06/23/2022 16:11:23 06/14/19 23 06/13/2022 CBC/D IFF AMBIG UOUS DEFAU LT basos 1 % not estab. 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 0 Not Available [facility] ([facility]) [address], [place], [address], 06/23/2022 16:11:23 06/14/19 23 06/13/2022 CBC/D IFF AMBIG UOUS DEFAU LT lymphs (absolute) 1.4 x10e3 /uL 0.7-3. 1 Not Available [facility] ([facility]) [address], [place], [address], 06/23/2022 16:11:23 06/14/19 23 06/13/2022 CBC/D IFF AMBIG UOUS DEFAU LT monocytes(ab solute) 0.5 x10e3 /uL 0.1-0. 9 Not Available [facility] ([facility]) [address] [place], [address], 06/23/2022 16:11:23 06/14/19 23 06/13/2022 CBC/D IFF AMBIG UOUS DEFAU LT eos (absolute) 0.1 x10e3 /uL 0.0-0. 4 Not Available [facility] ([facility]) [address] [place], [address], 06/23/2022 16:11:23 06/14/19 23 06/13/2022 CBC/D IFF AMBIG UOUS DEFAU LT baso (absolute) 0.1 x10e3 /uL 0.0-0. 2 Not Available [facility] ([facility]) [address] [place], [address], 06/23/2022 16:11:23 03/24/20 23 06/13/2022 CBC/D IFF AMBIG UOUS DEFAU LT immature granulocytes 0 % not estab. Not Available [facility] ([facility]) [address], [place], [address], 06/23/2022 16:11:23 06/14/19 23 06/13/2022 CBC/D IFF AMBIG UOUS DEFAU LT immature grans (abs) 0.0 x10e3 /uL 0.0-0. 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 In accor dance with the [facility] Ambig uous Test Code Polic y dated September 2002, we have assig nakia CBC with Diffe black al/Pl teresa t, Test Code #[address]. If this is not the testi ng you wishe d to recei ve on this speci men, pleas e conta ct the [facility] Clien t Inqui ry/ Techn ical Servi andrew Depar tment to eva fy the test order . We appre ciate your busin ess. Not Available [facility] ([facility]) [address] [facility], [place], [address], 06/23/2022 16:11:23 06/14/19 23 06/14/2022 BASIC METAB OLIC PANEL (8) glucose 113 mg/dL 70-99 above high normal Not Available [facility] ([facility]) [address], [place], [address], 06/23/2022 16:11:24 06/14/19 23 06/14/2022 BASIC METAB OLIC PANEL (8) BUN 12 mg/dL 6-24 Not Available [facility] ([facility]) [address] [facility] [place], [address], 06/23/2022 16:11:24 06/14/19 23 06/14/2022 BASIC METAB OLIC PANEL (8) creatinine 1.05 mg/dL 0.76-1 .27 Not Available [facility] ([facility]) [address] [facility] [place], [address], 06/23/2022 16:11:24 06/14/19 23 06/14/2022 BASIC METAB OLIC PANEL (8) eGFR 83 mL/mi n/1.7 3 >59 Not Available [facility] ([facility]) [address], [place], [address], 06/23/2022 16:11:24 06/14/19 23 06/14/2022 BASIC METAB OLIC PANEL (8) BUN/creatini ne ratio 11 9-20 Not Available [facility] ([facility]) [address] [facility] [place], [address], 06/23/2022 16:11:24 06/14/19 23 06/14/2022 BASIC METAB OLIC PANEL (8) sodium 143 mmol/ L 134-14 4 Not Available [facility] ([facility]) [address] [facility] [place], [address], 06/23/2022 16:11:24 06/14/19 23 06/14/2022 BASIC METAB OLIC PANEL (8) potassium 4.7 mmol/ L 3.5-5. 2 Not Available [facility] ([facility]) [address] [facility] [place], [address], 06/23/2022 16:11:24 06/14/19 23 06/14/2022 BASIC METAB OLIC PANEL (8) chloride 105 mmol/ L 96-106 Not Available [facility] ([facility]) [address] [place], [address], 06/23/2022 16:11:24 06/14/19 23 06/14/2022 BASIC METAB OLIC PANEL (8) carbon dioxide, total 26 mmol/ L 20-29 Not Available [facility] ([facility]) [address] [place], [address], 06/23/2022 16:11:24 06/14/19 23 06/14/2022 BASIC METAB OLIC PANEL (8) calcium 10.3 mg/dL 8.7-10 .2 above high normal Not Available [facility] ([facility]) [address] [place], [address], 06/23/2022 16:11:24 06/14/19 23 06/14/2022 LIPID PANEL cholesterol, total 165 mg/dL 100-19 9 Not Available [facility] ([facility]) [address] [place], [address], 06/23/2022 16:11:25 06/14/19 23 06/14/2022 LIPID PANEL triglyceride s 96 mg/dL 0-149 Not Available [facility] ([facility]) [address] [place], [address], 06/23/2022 16:11:25 06/14/19 23 06/14/2022 LIPID PANEL HDL cholesterol 61 mg/dL >39 Not Available [facility] ([facility]) [address] [place], [address], 06/23/2022 16:11:25 06/14/19 23 06/14/2022 LIPID PANEL VLDL cholesterol татьяна 18 mg/dL 5-40 Not Available [facility] ([facility]) [address] [place], [address], 06/23/2022 16:11:25 06/14/19 23 06/14/2022 LIPID PANEL LDL chol calc ([facility]) 86 mg/dL 0-99 Not Available [facility] ([facility]) [address] [place], [address], 06/23/2022 16:11:25 06/14/19 23 06/14/2022 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 5 Not Available [facility] ([facility]) [address] [place], [address], 06/23/2022 16:11:25 06/14/19 23 06/14/2022 HEPAT IC FUNCT ION PANEL (7) albumin 4.9 g/dL 3.8-4. 9 Not Available [facility] ([facility]) [address] [place], [address], 06/23/2022 16:11:25 06/14/19 23 06/14/2022 HEPAT IC FUNCT ION PANEL (7) bilirubin, total 0.5 mg/dL 0.0-1. 2 Not Available [facility] ([facility]) [address] [place], [address], 06/23/2022 16:11:25 06/14/19 23 06/14/2022 HEPAT IC FUNCT ION PANEL (7) bilirubin, direct 0.16 mg/dL 0.00-0 .40 Not Available [facility] ([facility]) [address] [place], [address], 06/23/2022 16:11:25 06/14/19 23 06/14/2022 HEPAT IC FUNCT ION PANEL (7) alkaline phosphatase 56 IU/L 44-121 Not Available [facility] ([facility]) [address] [place], [address], 06/23/2022 16:11:25 06/14/19 23 06/14/2022 HEPAT IC FUNCT ION PANEL (7) AST (SGOT) 24 IU/L 0-40 Not Available [facility] ([facility]) [address] [place], [address], 06/23/2022 16:11:25 06/14/19 23 06/14/2022 HEPAT IC FUNCT ION PANEL (7) ALT (SGPT) 34 IU/L 0-44 Not Available [facility] ([facility]) [address] [place], [address], 06/23/2022 16:11:25 06/14/19 23 06/23/2022 25-HY DROXY VITAM IN D LCMS D2+D3 25-hydroxy, vitamin D 23 NG/mL below low normal Refer ence Range : All Ages: Targe t level s 30 - 100 Not Available [facility] [address] [place] [address], [address], 06/23/2022 16:11:26 06/14/19 23 06/23/2022 25-HY DROXY VITAM IN D LCMS D2+D3 25-hydroxy, vitamin D-2 11 NG/mL This test was devel oped and its perfo rmanc e gamal cteri stics deter mined by [facility]. It has not been clear ed or appro ez by the Food and Drug Admin istra tion. Not Available [facility] [address] [place], [address], 06/23/2022 16:11:26 06/14/19 23 06/23/2022 25-HY DROXY VITAM IN D LCMS D2+D3 25-hydroxy, vitamin D-3 12 NG/mL This test was devel oped and its perfo rmanc e gamal cteri stics deter mined by [facility]. It has not been clear ed or appro ez by the Food and Drug Admin istra tion. Not Available [facility] [address] [facility], [place], [address], 06/23/2022 16:11:26 06/14/19 23 06/14/2022 PROST ATE-S PECIF IC AG prostate specific Ag 1.2 NG/mL 0.0-4. 0 Patrice ECLIA metho dolog y. Accor ding to the Ameri can [employer] g[employer] iatio n, Serum PSA shoul d decre ase and remai n at undet ectab le level s after radic al prost atect brea. The AUA defin es bioch emica l recur rence as an initi al PSA value 0.2 ng/mL or great er follo wed by a subse quent confi rmato ry PSA value 0.2 ng/mL or great er. Value s obtai nakia with diffe rent assay metho ds or kits canno t be used inter hill eably . Resul ts canno t be inter prete d as absol marizol evide nce of the prese nce or absen ce of tami dozier se. Not Available [facility] ([facility]) [address], [place], [address], 06/23/2022 16:11:27 06/14/19 23 06/13/2022 AMBDANTE ABBRE V BMP8 DEFAU LT ambdante abbrev BMP8 default Commen t A hand- writt en panel /prof ile was recei ez from your offic e. In accor dance with the [facility] Ambig uous Test Code Polic y dated September 2002, we have compl eted your order by using the close st kathryn rey or andrew lui recog nized AMA panel . We have assig nakia Basic Metab olic Panel (8), Test Code #3227 [address]. If this is not the testi ng you wishe d to recei ve on this speci men, pleas e conta ct the [facility] Clien t Inqui ry/Te chnic al Servi andrew Depar tment to eva fy the test order . We appre ciate your busin ess. Not Available [facility] ([facility]) [address], [place], [address], 06/23/2022 16:11:27 06/14/19 23 06/13/2022 AMBIG ABBRE V LP DEFAU LT ambig abbrev LP default Commen t A hand- writt en panel /prof ile was recei ez from your offic e. In accor dance with the [facility] Ambig uous Test Code Polic y dated September 2002, we have compl eted your order by using the close st curre ntly or forme rly recog nized AMA panel . We have monster yee Lipid Panel , Test Code #3037 [address]. If this is not the testi ng you wishe d to recei ve on this speci men, pleas e conta ct the [facility] Clien t Inqui ry/Te chnic al Servi andrew Depar tment to eva fy the test order . We appre ciate your busin ess. Not Available [facility] ([facility]) [address] [facility] [address] [facility], [place], [address], 06/23/2022 16:11:28 06/14/19 23 06/13/2022 AMBIG ABBRE V HFP7 DEFAU LT ambig abbrev hfp7 default Commen t A hand- writt en panel /prof ile was recei ez from your offic e. In accor dance with the [facility] Ambig uous Test Code Polic y dated September 2002, we have compl eted your order by using the close st curre ntly or forme rly recog nized AMA panel . We have monster yee Hepat ic Funct ion Panel (7), Test Code #3227 [address]. If this is not the testi ng you wishe d to recei ve on this speci men, pleas e conta ct the [facility] Clien t Inqui ry/Te chnic al Servi andrew Depar tment to eva fy the test order . We appre ciate your anatoliyin ess. Not Available [facility] ([facility]) [address] [facility] [facility], [place], [address], 06/23/2022 16:11:29 11/21/19 23 11/20/2022 CBC WITH DIFFE RENTI AL/PL ATELE T WBC 5.8 x10e3 /uL 3.4-10 .8 Not Available [facility] ([facility]) [address], [place], [address], 11/21/2022 04:08:49 11/21/19 23 11/20/2022 CBC WITH DIFFE RENTI AL/PL ATELE T RBC 4.63 x10e6 /uL 4.14-5 .80 Not Available [facility] ([facility]) [address] [facility], [place], [address], 11/21/2022 04:08:49 11/21/19 23 11/20/2022 CBC WITH DIFFE RENTI AL/PL ATELE T hemoglobin 14.3 g/dL 13.0-1 7.7 Not Available [facility] ([facility]) [address] [facility] [address] [facility], [place], [address], 11/21/2022 04:08:49 11/21/19 23 11/20/2022 CBC WITH DIFFE RENTI AL/PL ATELE T hematocrit 43.1 % 37.5-5 1.0 Not Available [facility] ([facility]) [address] [facility] [facility], [place], [address], 11/21/2022 04:08:49 11/21/1911/20/2022 CBC WITH DIFFE RENTI AL/PL ATELE T MCV 93 fL 79-97 Not Available [facility] ([facility]) [address] [facility], [place], [address], 11/21/2022 04:08:49 11/21/19 23 11/20/2022 CBC WITH DIFFE RENTI AL/PL ATELE T MCH 30.9 pg 26.6-3 3.0 Not Available [facility] ([facility]) [address] [facility], [place], [address], 11/21/2022 04:08:49 11/21/19 23 11/20/2022 CBC WITH DIFFE RENTI AL/PL ATELE T MCHC 33.2 g/dL 31.5-3 5.7 Not Available [facility] ([facility]) [address] [facility], [place], [address], 11/21/2022 04:08:49 11/21/19 23 11/20/2022 CBC WITH DIFFE RENTI AL/PL ATELE T RDW 13.6 % 11.6-1 5.4 Not Available [facility] ([facility]) [address] [facility], [place], [address], 11/21/2022 04:08:49 11/21/19 23 11/20/2022 CBC WITH DIFFE RENTI AL/PL ATELE T platelets 252 x10e3 /uL 150-45 0 Not Available [facility] ([facility]) [address] [facility], [place], [address], 11/21/2022 04:08:49 11/21/19 23 11/20/2022 CBC WITH DIFFE RENTI AL/PL ATELE T neutrophils 65 % not estab. Not Available [facility] ([facility]) [address] [facility], [place], [address], 11/21/2022 04:08:49 11/21/19 23 11/20/2022 CBC WITH DIFFE RENTI AL/PL ATELE T lymphs 20 % not estab. Not Available [facility] ([facility]) [address] [facility], [place], [address], 11/21/2022 04:08:49 11/21/19 23 11/20/2022 CBC WITH DIFFE RENTI AL/PL ATELE T monocytes 11 % not estab. Not Available [facility] ([facility]) [address] [facility], [place], [address], 11/21/2022 04:08:49 11/21/19 23 11/20/2022 CBC WITH DIFFE RENTI AL/PL ATELE T eos 3 % not estab. Not Available [facility] ([facility]) [address] [facility], [place], [address], 11/21/2022 04:08:49 11/21/19 23 11/20/2022 CBC WITH DIFFE RENTI AL/PL ATELE T basos 1 % not estab. 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 0 Not Available [facility] ([facility]) [address] [facility], [place], [address], 11/21/2022 04:08:49 11/21/19 23 11/20/2022 CBC WITH DIFFE RENTI AL/PL ATELE T lymphs (absolute) 1.2 x10e3 /uL 0.7-3. 1 Not Available [facility] ([facility]) [address] [place], [address], 11/21/2022 04:08:49 11/21/19 23 11/20/2022 CBC WITH DIFFE RENTI AL/PL ATELE T monocytes(ab solute) 0.6 x10e3 /uL 0.1-0. 9 Not Available [facility] ([facility]) [address] [facility], [place], [address], 11/21/2022 04:08:49 11/21/19 23 11/20/2022 CBC WITH DIFFE RENTI AL/PL ATELE T eos (absolute) 0.2 x10e3 /uL 0.0-0. 4 Not Available [facility] ([facility]) [address] [facility], [place], [address], 11/21/2022 04:08:49 11/21/19 23 11/20/2022 CBC WITH DIFFE RENTI AL/PL ATELE T baso (absolute) 0.1 x10e3 /uL 0.0-0. 2 Not Available [facility] ([facility]) [address] [facility], [place], [address], 11/21/2022 04:08:49 11/21/19 23 11/20/2022 CBC WITH DIFFE RENTI AL/PL ATELE T immature granulocytes 0 % not estab. Not Available [facility] ([facility]) [address] [facility], [place], [address], 11/21/2022 04:08:49 11/21/19 23 11/20/2022 CBC WITH DIFFE RENTI AL/PL ATELE T immature grans (abs) 0.0 x10e3 /uL 0.0-0. 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 Not Available [facility] ([facility]) [address] [facility], [place], [address], 11/21/2022 04:08:49 11/21/1911/21/2022 BASIC METAB OLIC PANEL (8) glucose 114 mg/dL 70-99 above high normal Not Available [facility] ([facility]) [address] [facility] [place], [address], 11/21/2022 04:08:51 11/21/19 23 11/21/2022 BASIC METAB OLIC PANEL (8) BUN 15 mg/dL 6-24 Not Available [facility] ([facility]) [address] [facility] [place], [address], 11/21/2022 04:08:51 11/21/1911/21/2022 BASIC METAB OLIC PANEL (8) creatinine 0.88 mg/dL 0.76-1 .27 Not Available [facility] ([facility]) [address] [facility], [place], [address], 11/21/2022 04:08:51 11/21/1911/21/2022 BASIC METAB OLIC PANEL (8) eGFR 100 mL/mi n/1.7 3 >59 Not Available [facility] ([facility]) [address] [facility], [place], [address], 11/21/2022 04:08:51 11/21/1911/21/2022 BASIC METAB OLIC PANEL (8) BUN/creatini ne ratio 17 9-20 Not Available [facility] ([facility]) [address] [facility] [place], [address], 11/21/2022 04:08:51 11/21/1911/21/2022 BASIC METAB OLIC PANEL (8) sodium 142 mmol/ L 134-14 4 Not Available [facility] ([facility]) [address] [facility] [place], [address], 11/21/2022 04:08:51 11/21/19 23 11/21/2022 BASIC METAB OLIC PANEL (8) potassium 4.7 mmol/ L 3.5-5. 2 Not Available [facility] ([facility]) [address] [facility] [place], [address], 11/21/2022 04:08:51 11/21/19 23 11/21/2022 BASIC METAB OLIC PANEL (8) chloride 105 mmol/ L 96-106 Not Available [facility] ([facility]) [address] [facility] [place], [address], 11/21/2022 04:08:51 11/21/1911/21/2022 BASIC METAB OLIC PANEL (8) carbon dioxide, total 23 mmol/ L 20-29 Not Available [facility] ([facility]) [address] [facility] [place], [address], 11/21/2022 04:08:51 11/21/1911/21/2022 BASIC METAB OLIC PANEL (8) calcium 9.9 mg/dL 8.7-10 .2 Not Available [facility] ([facility]) [address] [facility] [place], [address], 11/21/2022 04:08:51 11/21/19 23 11/21/2022 LIPID PANEL cholesterol, total 194 mg/dL 100-19 9 Not Available [facility] ([facility]) [address] [facility] [place], [address], 11/21/2022 04:08:52 11/21/1911/21/2022 LIPID PANEL triglyceride s 64 mg/dL 0-149 Not Available [facility] ([facility]) [address] [facility] [place], [address], 11/21/2022 04:08:52 11/21/1911/21/2022 LIPID PANEL HDL cholesterol 77 mg/dL >39 Not Available [facility] ([facility]) [address] [place], [address], 11/21/2022 04:08:52 11/21/19 23 11/21/2022 LIPID PANEL VLDL cholesterol татьяна 12 mg/dL 5-40 Not Available [facility] ([facility]) [address] [facility] [place], [address], 11/21/2022 04:08:52 11/21/19 23 11/21/2022 LIPID PANEL LDL chol calc ([facility]) 105 mg/dL 0-99 above high normal Not Available [facility] ([facility]) [address] [facility] [place], [address], 11/21/2022 04:08:52 11/21/1911/21/2022 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 5 Not Available [facility] ([facility]) [address] [facility] [place], [address], 11/21/2022 04:08:52 11/21/1911/21/2022 HEPAT IC FUNCT ION PANEL (7) albumin 4.5 g/dL 3.8-4. 9 Not Available [facility] ([facility]) [address] [facility] [place], [address], 11/21/2022 04:08:52 11/21/19 23 11/21/2022 HEPAT IC FUNCT ION PANEL (7) bilirubin, total 0.3 mg/dL 0.0-1. 2 Not Available [facility] ([facility]) [address] [facility] [place], [address], 11/21/2022 04:08:52 11/21/19 23 11/21/2022 HEPAT IC FUNCT ION PANEL (7) bilirubin, direct 0.12 mg/dL 0.00-0 .40 Not Available [facility] ([facility]) [address] [place], [address], 11/21/2022 04:08:52 11/21/19 23 11/21/2022 HEPAT IC FUNCT ION PANEL (7) alkaline phosphatase 49 IU/L 44-121 Not Available [facility] ([facility]) [address] [place], [address], 11/21/2022 04:08:52 11/21/19 23 11/21/2022 HEPAT IC FUNCT ION PANEL (7) AST (SGOT) 16 IU/L 0-40 Not Available [facility] ([facility]) [address] [place], [address], 11/21/2022 04:08:52 11/21/19 23 11/21/2022 HEPAT IC FUNCT ION PANEL (7) ALT (SGPT) 21 IU/L 0-44 Not Available [facility] ([facility]) [address] [place], [address], 11/21/2022 04:08:52 11/21/19 23 11/20/2022 HEMOG LOBIN A1C hemoglobin A1C 5.9 % 4.8-5. 6 above high normal Predi abete s: 5.7 - 6.4 Diabe zenon: >6.4 Glyce ami contr ol for adult s with diabe zenon: <7.0 Not Available [facility] ([facility]) [address] [place], [address], 11/21/2022 04:08:53 11/21/19 23 11/20/2022 AMBIG ABBRE V BMP8 DEFAU LT ambig abbrev BMP8 default Commen t A hand- writt en panel /prof ile was recei ez from your offic e. In accor dance with the [facility] Ambig uous Test Code Polic y dated September 2002, we have compl eted your order by using the close st curre ntly or forme rly recog nized AMA panel . We have monster yee Basic Metab olic Panel (8), Test Code #3227 [address]. If this is not the testi ng you wishe d to recei ve on this speci men, pleas e conta ct the [facility] Clien t Inqui ry/Te chnic al Servi andrew Depar tment to eva fy the test order . We appre ciate your busin ess. Not Available [facility] ([facility]) [address] [place], [address], 11/21/2022 04:08:54 11/21/19 23 11/20/2022 AMBIG ABBRE V LP DEFAU LT ambig abbrev LP default COMMEN T A hand- writt en panel /prof ile was recei ez from your offic e. In accor dance with the [facility] Ambig uous Test Code [facility] y dated September 2002, we have compl eted your order by using the close st curre ntly or forme rly recog nized AMA panel . We have monster yee Lipid Panel , Test Code #3037 [address]. If this is not the testi ng you wishe d to recei ve on this speci men, pleas e conta ct the [facility] Clien t Inqui ry/Te chnic al Servi anderw Depar tment to eva fy the test order . We appre ciate your busin ess. Not Available [facility] ([facility]) [address] [facility], [place], [address], 11/21/2022 04:08:54 11/21/19 23 11/20/2022 AMBIG ABBRE V HFP7 DEFAU LT ambig abbrev hfp7 default Commen t A hand- writt en panel /prof ile was recei ez from your offic e. In accor dance with the [facility] Ambig uous Test Code Polic y dated September 2002, we have compl eted your order by using the close st curre ntly or forme rly recog nized AMA panel . We have monster yee Hepat ic Funct ion Panel (7), Test Code #3227 [address]. If this is not the testi ng you wishe d to recei ve on this speci nena hutton e con ct the [facility] Clien t Inqui ry/Te chnic al Servi andrew Depar tment to eva larose the test order . We appre ciate your busin ess. Not Available [facility] ([facility]) [address] [facility], [place], [address], 11/21/2022 04:08:55 05/28/19 24 05/29/2023 CBC WITH DIFFE RENTI AL/PL ATELE T WBC 5.7 x10e3 /uL 3.4-10 .8 Not Available [facility] ([facility]) [address] [place], [address], 05/29/2023 09:39:54 05/28/19 24 05/29/2023 CBC WITH DIFFE RENTI AL/PL ATELE T RBC 4.83 x10e6 /uL 4.14-5 .80 Not Available [facility] ([facility]) [address] [place], [address], 05/29/2023 09:39:54 05/28/19 24 05/29/2023 CBC WITH DIFFE RENTI AL/PL ATELE T hemoglobin 14.9 g/dL 13.0-1 7.7 Not Available [facility] ([facility]) [address] [place], [address], 05/29/2023 09:39:54 05/28/19 24 05/29/2023 CBC WITH DIFFE RENTI AL/PL ATELE T hematocrit 44.3 % 37.5-5 1.0 Not Available [facility] ([facility]) [address] [place], [address], 05/29/2023 09:39:54 05/28/19 24 05/29/2023 CBC WITH DIFFE RENTI AL/PL ATELE T MCV 92 fL 79-97 Not Available [facility] ([facility]) [address] [facility], [place], [address], 05/29/2023 09:39:54 05/28/19 24 05/29/2023 CBC WITH DIFFE RENTI AL/PL ATELE T MCH 30.8 pg 26.6-3 3.0 Not Available [facility] ([facility]) [address] [facility], [place], [address], 05/29/2023 09:39:54 05/28/19 24 05/29/2023 CBC WITH DIFFE RENTI AL/PL ATELE T MCHC 33.6 g/dL 31.5-3 5.7 Not Available [facility] ([facility]) [address] [facility], [place], [address], 05/29/2023 09:39:54 05/28/19 24 05/29/2023 CBC WITH DIFFE RENTI AL/PL ATELE T RDW 13.1 % 11.6-1 5.4 Not Available [facility] ([facility]) [address] [facility], [place], [address], 05/29/2023 09:39:54 05/28/19 24 05/29/2023 CBC WITH DIFFE RENTI AL/PL ATELE T platelets 274 x10e3 /uL 150-45 0 Not Available [facility] ([facility]) [address] [facility], [place], [address], 05/29/2023 09:39:54 05/28/19 24 05/29/2023 CBC WITH DIFFE RENTI AL/PL ATELE T neutrophils 68 % not estab. Not Available [facility] ([facility]) [address] [facility], [place], [address], 05/29/2023 09:39:54 05/28/19 24 05/29/2023 CBC WITH DIFFE RENTI AL/PL ATELE T lymphs 19 % not estab. Not Available [facility] ([facility]) [address] [facility], [place], [address], 05/29/2023 09:39:54 05/28/19 24 05/29/2023 CBC WITH DIFFE RENTI AL/PL ATELE T monocytes 10 % not estab. Not Available [facility] ([facility]) [address] [facility], [place], [address], 05/29/2023 09:39:54 05/28/19 24 05/29/2023 CBC WITH DIFFE RENTI AL/PL ATELE T eos 2 % not estab. Not Available [facility] ([facility]) [address] [facility], [place], [address], 05/29/2023 09:39:54 05/28/19 24 05/29/2023 CBC WITH DIFFE RENTI AL/PL ATELE T basos 1 % not estab. 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 0 Not Available [facility] ([facility]) [address] [place], [address], 05/29/2023 09:39:54 05/28/19 24 05/29/2023 CBC WITH DIFFE RENTI AL/PL ATELE T lymphs (absolute) 1.1 x10e3 /uL 0.7-3. 1 Not Available [facility] ([facility]) [address] [place], [address], 05/29/2023 09:39:54 05/28/19 24 05/29/2023 CBC WITH DIFFE RENTI AL/PL ATELE T monocytes(ab solute) 0.5 x10e3 /uL 0.1-0. 9 Not Available [facility] ([facility]) [address] [facility], [place], [address], 05/29/2023 09:39:54 05/28/19 24 05/29/2023 CBC WITH DIFFE RENTI AL/PL ATELE T eos (absolute) 0.1 x10e3 /uL 0.0-0. 4 Not Available [facility] ([facility]) [address] [place], [address], 05/29/2023 09:39:54 05/28/19 24 05/29/2023 CBC WITH DIFFE RENTI AL/PL ATELE T baso (absolute) 0.1 x10e3 /uL 0.0-0. 2 Not Available [facility] ([facility]) [address] [facility], [place], [address], 05/29/2023 09:39:54 05/28/19 24 05/29/2023 CBC WITH DIFFE RENTI AL/PL ATELE T immature granulocytes 0 % not estab. Not Available [facility] ([facility]) [address] [place], [address], 05/29/2023 09:39:54 05/28/19 24 05/29/2023 CBC WITH DIFFE RENTI AL/PL ATELE T immature grans (abs) 0.0 x10e3 /uL 0.0-0. 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 Not Available [facility] ([facility]) [address] [facility], [place], [address], 05/29/2023 09:39:54 05/28/19 24 05/29/2023 BASIC METAB OLIC PANEL (8) glucose 121 mg/dL 70-99 above high normal Not Available [facility] ([facility]) [address] [facility] [place], [address], 05/29/2023 09:39:56 05/28/19 24 05/29/2023 BASIC METAB OLIC PANEL (8) BUN 15 mg/dL 6-24 Not Available [facility] ([facility]) [address] [facility], [place], [address], 05/29/2023 09:39:56 05/28/19 24 05/29/2023 BASIC METAB OLIC PANEL (8) creatinine 1.06 mg/dL 0.76-1 .27 Not Available [facility] ([facility]) [address] [facility], [place], [address], 05/29/2023 09:39:56 05/28/19 24 05/29/2023 BASIC METAB OLIC PANEL (8) eGFR 81 mL/mi n/1.7 3 >59 Not Available [facility] ([facility]) [address] [facility], [place], [address], 05/29/2023 09:39:56 05/28/19 24 05/29/2023 BASIC METAB OLIC PANEL (8) BUN/creatini ne ratio 14 9-20 Not Available [facility] ([facility]) [address] [facility] [place], [address], 05/29/2023 09:39:56 05/28/19 24 05/29/2023 BASIC METAB OLIC PANEL (8) sodium 141 mmol/ L 134-14 4 Not Available [facility] ([facility]) [address] [place], [address], 05/29/2023 09:39:56 05/28/19 24 05/29/2023 BASIC METAB OLIC PANEL (8) potassium 4.3 mmol/ L 3.5-5. 2 Not Available [facility] ([facility]) [address] [place], [address], 05/29/2023 09:39:56 05/28/19 24 05/29/2023 BASIC METAB OLIC PANEL (8) chloride 103 mmol/ L 96-106 Not Available [facility] ([facility]) [address] [place], [address], 05/29/2023 09:39:56 05/28/19 24 05/29/2023 BASIC METAB OLIC PANEL (8) carbon dioxide, total 26 mmol/ L 20-29 Not Available [facility] ([facility]) [address] [place], [address], 05/29/2023 09:39:56 05/28/19 24 05/29/2023 BASIC METAB OLIC PANEL (8) calcium 10.1 mg/dL 8.7-10 .2 Not Available [facility] ([facility]) [address] [place], [address], 05/29/2023 09:39:56 05/28/19 24 05/29/2023 LIPID PANEL cholesterol, total 181 mg/dL 100-19 9 Not Available [facility] ([facility]) [address] [place], [address], 05/29/2023 09:39:57 05/28/19 24 05/29/2023 LIPID PANEL triglyceride s 118 mg/dL 0-149 Not Available [facility] ([facility]) [address] [place], [address], 05/29/2023 09:39:57 05/28/19 24 05/29/2023 LIPID PANEL HDL cholesterol 64 mg/dL >39 Not Available [facility] ([facility]) [address] [facility] [place], [address], 05/29/2023 09:39:57 05/28/19 24 05/29/2023 LIPID PANEL VLDL cholesterol татьяна 21 mg/dL 5-40 Not Available [facility] ([facility]) [address] [place], [address], 05/29/2023 09:39:57 05/28/19 24 05/29/2023 LIPID PANEL LDL chol calc ([facility]) 96 mg/dL 0-99 Not Available [facility] ([facility]) [address] [place], [address], 05/29/2023 09:39:57 05/28/19 24 05/29/2023 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 5 Not Available [facility] ([facility]) [address] [place], [address], 05/29/2023 09:39:58 05/28/19 24 05/29/2023 HEPAT IC FUNCT ION PANEL (7) albumin 4.6 g/dL 3.8-4. 9 Not Available [facility] ([facility]) [address] [place], [address], 05/29/2023 09:39:58 05/28/19 24 05/29/2023 HEPAT IC FUNCT ION PANEL (7) bilirubin, total 0.6 mg/dL 0.0-1. 2 Not Available [facility] ([facility]) [address] [place], [address], 05/29/2023 09:39:58 05/28/19 24 05/29/2023 HEPAT IC FUNCT ION PANEL (7) bilirubin, direct 0.14 mg/dL 0.00-0 .40 Not Available [facility] ([facility]) [address] [place], [address], 05/29/2023 09:39:58 05/28/19 24 05/29/2023 HEPAT IC FUNCT ION PANEL (7) alkaline phosphatase 56 IU/L 44-121 Not Available [facility] ([facility]) [address] [place], [address], 05/29/2023 09:39:58 05/28/19 24 05/29/2023 HEPAT IC FUNCT ION PANEL (7) AST (SGOT) 20 IU/L 0-40 Not Available [facility] ([facility]) [address] [place], [address], 05/29/2023 09:39:58 05/28/19 24 05/29/2023 HEPAT IC FUNCT ION PANEL (7) ALT (SGPT) 29 IU/L 0-44 Not Available [facility] ([facility]) [address] [place], [address], 05/29/2023 09:39:58 05/28/19 24 05/29/2023 HEMOG LOBIN A1C hemoglobin A1C 6.1 % 4.8-5. 6 above high normal Predi abete s: 5.7 - 6.4 Diabe zenon: >6.4 Glyce ami contr ol for adult s with diabe zenon: <7.0 Not Available [facility] ([facility]) [address] [place], [address], 05/29/2023 09:39:59 05/28/19 24 05/29/2023 PROST ATE-S PECIF IC AG prostate specific Ag 1.1 NG/mL 0.0-4. 0 Patrice ECLIA metho dolog y. Accor ding to the Ameri can Urolo gical Assoc iatio n, Serum PSA shoul d decre ase and remai n at undet ectab le level s after radic al prost atect brea. The AUA defin es bioch emica l recur rence as an initi al PSA value 0.2 ng/mL or great er follo wed by a subse quent confi rmato ry PSA value 0.2 ng/mL or great er. Value s obtai nakia with diffe rent assay metho ds or kits canno t be used inter hill eably . Resul ts canno t be inter prete d as absol marizol evide nce of the prese nce or absen [facility] se. Not Available [facility] ([facility]) [address] [facility], [place], [address], 05/29/2023 09:40:00 05/28/19 24 05/29/2023 VITAM IN D, 25-HY DROXY vitamin D, 25-hydroxy 23.6 NG/mL 30.0-1 00.0 below low normal Vitam in D defic iency has been defin ed by the Insti tute of Medic ine and an Endoc rine Socie ty pract ice guide line as a level of serum 25-OH vitam in D less than 20 ng/mL (1,2) . The Endoc rine Socie ty went on to furth er defin e vitam in D insuf ficie ncy as a level betwe en 21 and 29 ng/mL (2). 1. IOM (Inst itute of Medic ine). 2010. Dieta ry refer ence intak es for calci um and D. Huang gordon [place]: The [facility] Press . 2. Valdez TODD, Eleazar malloy [place], Roberta off-F jono i BELTRAN, et al. Evalu ation , treat ment, and preve ntion of vitam in D defic iency : an Endoc rine Socie ty clini татьяна pract ice guide line. JCEM. 2010; 96(7) :1911 -30. Not Available [facility] ([facility]) [address] [place], [address], 05/29/2023 09:40:01 05/28/19 24 05/28/2023 AMBIG ABBRE V LP DEFAU LT ambig abbrev LP default COMMEN T A hand- writt en panel /prof ile was recei ez from your offic e. In accor dance with the [facility] Ambig uous Test Code [facility] dated September 2002, we have compl eted your order by using the close st curre ntly or forme rly recog nized AMA panel . We have monster yee Lipid Panel , Test Code #30[address]. If this is not the testi ng you wishe d to recei ve on this speci men, pleas e conta ct the [facility] Clien t Inqui ry/Te chnic al Servi andrew Depar tment to eva fy the test order . We appre ciate your busin ess. Not Available [facility] ([facility]) [address] [facility], [place], [address], 05/29/2023 09:40:02 05/28/19 24 05/28/2023 AMBIG ABBRE V HFP7 DEFAU LT ambig abbrev hfp7 default Commen t A hand- writt en panel /prof ile was recei ez from your offic e. In accor dance with the [facility] Ambig uous Test Code [facility] y dated September 2002, we have compl eted your order by using the close st curre ntly or forme rly recog nized AMA panel . We have monster yee Hepat ic Funct ion Panel (7), Test Code #32[address]. If this is not the testi ng you wishe d to recei ve on this speci men, pleas e conta ct the [facility] Clien t Inqui ry/Te chnic al Servi andrew Depar tment to eva fy the test order . We appre ciate your busin ess. Not Available [facility] ([facility]) [address] [facility], [place], [address], 05/29/2023 09:40:04 05/09/19 23 05/09/2022 CT, abdom en, w/o contr ast No observ ation record ed. [id number], [place], [address], 05/21/2022 04:58:15 07/02/19 23 07/01/2022 XR, abdom en No observ ation record ed. [email or web address] [address], [place], [address], 07/10/2022 16:27:14 12/25/19 23 12/23/2022 XR, chest , 2 view No observ ation record ed. [email or web address] [address], [place], [address], 12/24/2022 15:34:35 06/25/19 24 06/24/2023 LDCT, chest , for lung cance r scree ronaldo [facility] [place] [id number] Patien t Name: MICHAEL LEDBETTER ion #: [id number] Sex: M : 1965 3 Dictat ed By: Martell Cardenas ms Attend [facility] Physic brissa: JENNIFER REAGAN [facility] Physic brissa: JENNIFER REAGAN Exam Date: 2023 15:25 PM Exam Name: CT LOW DOSE CNCR SCREEN ING Admitt ing Diagno sis(es ): CT Chest withou t intrav enous contra st INDICA TION: Nicoti ne depend ence. TECHNI QUE: Multid etecto r spiral CT of the chest was perfor med from the lung apices to the upper abdome n utiliz ing axial images . Del Cid l and sagitt al multip lanar reform ats were perfor med. Radiat ion Dose : 1. Chest: CTDI volume is 2.1 mGy. Dose-l ength produc t is 84 mGy*cm The dose indica tors for CT are the volume Comput ed Tomogr aphy (CT) Dose Index (CTDIv ol) and the Dose Length Produc t (DLP), and are measur ed in units of mGy and mGy-cm , respec tively . These indica tors are not patien t dose, but values genera festus from the CT scanne r acquis ition factor s. The report includ es radiat ion exposu re data for exposu res receiv ed during this examin ation. Compar toshia: 11/22/19 21. Findin gs: Lower neck: Unrema rkable thyroi d Lungs: No eviden ce of pulmon misa nodule s. Mild emphys ematou s change s. Pleura : No pleura l effusi ons. No pneumo thorax Heart/ Vascul ar Struct ures: The heart is normal in size. No perica rdial effusi on There are del cid ry artery calcif icatio ns. Normal calibe r aorta. There are athero sclero tic calcif icatio ns of the thorac ic aorta includ ing the arch. The main pulmon misa artery is normal in calibe r Page 1 [facility] [address] [address] Patien t Name: MICHAEL LEDBETTER ion #: [id number] Sex: M : 1965 3 Dictat ed By: Martell Cardenas ms Attend [facility] Physic brissa: LIAN CARRASCO [facility] Physic brissa: JENNIFER REAGAN Exam Date: 2023 15:25 PM Exam Name: CT LOW DOSE CNCR SCREEN ING Admitt ing Diagno sis(es ): Lymph Nodes: There are calcif ied subcar inal and right hilar lymph nodes. Muscul oskele milly: No fractu re or suspic ious bone lesion s. Body wall: Unrema rkable Upper abdome n: Calcif icatio ns in the spleen compat ible with granul omas. IMPRES SETH: 1. Mild emphys ematou s change s. 2. No pulmon misa nodule s. 3. Del Cid ry artery calcif icatio ns. 4. 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 Lung-R ADS: Catego ry 1: Recomm endati on: Contin ue annual screen ing with LDCT [email or web address]: [email or web address] Electr onical ly Signed by: Martell Cardenas ms at 2023 07:35: 59 AM Page 2 [email or web address] [facility] (Imaging) [address] [place], [address], 06/25/2023 12:05:59 Result Notes None recorded. Problems Name Problem SNOMED Code Status Onset Date Resolution Date Notes Provider Name and Address Organization Details Recorded Time Gastroesop hageal reflux disease without esophagiti s 724763989 Active 2022 Debbi Ch MD [address] [facility] [address], [address] , [place] 3 17:18:16 Lumbar spondylosi s 650152318 Active 2022 Debbi Ch MD [address] [facility] [address], [address] , [place] 3 17:19:36 Prediabete s 981031181 Active 2022 Debbi Ch MD [address] [address], [place], [address] , [place] 3 08:34:30 Upper respirator y infection 71610856 Active 2022 RODERICK Calhoun [facility] [address], [address] , [place] 3 12:31:36 Cough 84019345 Active 2022 Debbi Ch MD [address], [address] , [place] 3 18:30:42 Dyspnea 162751202 Active 2022 Debbi Ch MD [address], [place], [address] , [facility] 3 12:55:31 Persistent cough [id number] Active 2022 Debbi Ch MD [address], [facility] [address], [place], [address] , [facility] 3 15:34:47 Tobacco user [id number] Active Not Available [facility] 3 04:49:39 Chronic obstructiv e pulmonary disease 82302994 Active 2021 Not Available [facility] 3 04:49:39 Blood glucose outside reference range [id number] Active Not Available [facility] 3 04:49:39 Abdominal pain 46832221 Active 2021 Not Available [facility] 3 04:49:39 Gastroesop hageal reflux disease 349428508 Active 2021 Not Available [facility] 3 04:49:39 Large prostate 952398042 Active 2021 Not Available [facility] 3 04:49:39 Pure hyperchole sterolemia 312269299 Active Not Available [facility] 3 04:49:39 Chest pain 31230667 Completed Not Available [facility] 3 04:49:39 Vitamin D deficiency 99733683 Active 2021 Not Available [facility] 3 04:49:39 Abdominal discomfort 61152058 Active 2021 Not Available [facility] 3 04:49:39 Coronary arterioscl erosis 82213250 Active 2017 Not Available [facility] 3 04:49:39 Hyperlipid emia 58104724 Active 2021 Not Available [facility] 3 04:49:39 Essential hypertensi on 71422095 Active Not Available [facility] 3 04:49:39 Neck pain 31198995 Completed Not Available [facility] 04:49:40 Problem Notes None recorded. Procedures Surgical History Date Name Laterality Status Provider Name and Address Organization Details Recorded Time 03/04/20 cardiac catheterization completed Not Available [facility] 05/21/2022 04:42:50 01/10/20 22 cholecystectomy completed Not Available [facility] 05/21/2022 04:42:50 08/22/19 18 Cardiovascular Surgery completed Not Available [facility] 05/21/2022 04:42:50 Orthopedic Surgery completed Not Available [facility] 05/21/2022 04:42:50 Imaging Results Imaging Date Name Status LastModified by Organiz ation Details LastModified Time 05/09/2022 CT, abdomen, w/o contrast completed [id number] [address] [place] [address], [id number], 05/21/2022 04:58:15 07/01/2022 XR, abdomen completed [email or web address] [address] [place] [address], [id number], 07/10/2022 16:27:14 12/23/2022 XR, chest, 2 view completed [email or web address] [address] [place] [address], [id number], 12/24/2022 15:34:35 06/24/2023 LDCT, chest, for lung cancer screening completed [email or web address] [facility] (Imaging) [address] [place], [address], 06/25/2023 12:05:59 Procedure Notes None recorded. Medical Equipment None Reported. Allergies No known drug allergies Medications Name Sig Start Date Stop Date Status Note LastModified by Organization Details LastModified Time nifedipin e ER 30 mg tablet,ex tended release 24 hr TAKE ONE TABLET BY MOUTH EVERY DAY 10/06 completed stopped at visit 10/06/17 Not Available Not Available Not Available cyclobenz aprine 10 mg tablet TAKE 1 TABLET BY MOUTH THREE TIMES A DAY FOR 14 DAYS 02/13 completed Not Available Not Available Not Available amoxicill in 500 mg capsule TAKE 2 CAPSULES BY MOUTH TWICE A DAY FOR 14 DAYS 09/21 completed Not Available Not Available Not Available atorvasta tin 40 mg tablet 1 po qhs 2023 active Not Available Not Available Not Avai lable metformin 500 mg tablet Take 1 tablet twice a day by oral route. active Not Available Not Available No t Available atorvasta tin 80 mg tablet TAKE 1 TABLET BY MOUTH EVERY DAY active Not Available Not Available No t Available prednison e 10 mg tablet TAKE 3 TABLETS BY MOUTH FOR 2 DAYS, THEN 2 TABLETS FOR 2 DAYS, THEN 1 TABLET FOR 2 DAYS active Not Available Not Available No t Available doxycycli ne hyclate 100 mg capsule TAKE 1 CAPSULE BY MOUTH TWICE A DAY FOR 7 DAYS 05/27 completed Not Available Not Available Not Available azithromy julio 250 mg tablet TAKE 2 TABLETS (500 MG) BY ORAL ROUTE ONCE DAILY FOR 1 DAY THEN 1 TABLET (250 MG) BY ORAL ROUTE ONCE DAILY FOR 4 DAYS 06/18 completed Not Available Not Available Not Available pravastat in 40 mg tablet TAKE 1 TABLET BY MOUTH DAILY 01/11 completed increase d to 80mg Not Available Not Available Not Available benzonata te 200 mg capsule TAKE 1 CAPSULE BY MOUTH THREE TIMES A DAY NEEDED 05/27 completed Not Available Not Available Not Available clarithro mycin 500 mg tablet TAKE 1 TABLET BY MOUTH TWICE A DAY FOR 14 DAYS 09/21 completed Not Available Not Available Not Available hydrocodo ne 5 mg-acetam inophen 325 mg tablet TAKE 1 TABLET BY MOUTH EVERY 6 HOURS NEEDED FOR PAIN 03/19 completed Not Available Not Available Not Available sucralfat e 1 gram tablet TAKE 1 TABLET BY MOUTH THREE TIMES A DAY 30MINS BEFORE MEALS 07/21 completed Not Available Not Available Not Available famotidin e 40 mg tablet TAKE 1 TABLET BY MOUTH EVERY DAY 07/21 completed Not Available Not Available Not Available prednison e 20 mg tablet TAKE 2 TABLETS BY MOUTH EVERY DAY FOR 5 DAYS 07/03 completed Not Available Not Available Not Available penicilli n V potassium 500 mg tablet TK 1 T PO QID active Not Available Not Available No t Available amlodipin e 2.5 mg tablet TAKE 1 TABLET BY MOUTH EVERY OTHER DAY 03/19 completed Weaning off---Ta kes one M, W, F Not Available Not Available Not Available nifedipin e ER 30 mg tablet,ex tended release Take 1 tablet every day by oral route. 07/01 completed Not Available Not Available Not Available clopidogr el 75 mg tablet TAKE 1 TABLET BY MOUTH EVERY DAY active Not Available Not Available No t Available amlodipin e 5 mg tablet Take 1 tablet every day by oral route. 11/22 completed Not Available Not Available Not Available aspirin 81 mg tablet,de layed release TAKE 1 TABLET BY MOUTH EVERY DAY active Not Available Not Available No t Available tramadol 50 mg tablet active Not Available Not Available Not Available carvedilo l 3.125 mg tablet TAKE 1 TABLET BY MOUTH TWICE A DAY active Not Available Not Available No t Available famotidin e 20 mg tablet TAKE 1 TABLET BY MOUTH EVERY DAY NEEDED 03/19 completed Not Available Not Available Not Available pravastat in 80 mg tablet TAKE 1 TABLET BY MOUTH EVERY DAY 12/05 completed Not Available Not Available Not Available dicyclomi ne 20 mg tablet TAKE 1 TABLET BY MOUTH EVERY 6 HOURS NEEDED FOR ABDOMINA L PAIN active Not Available Not Available No t Available pantopraz ole 40 mg tablet,de layed release TAKE 1 TABLET BY MOUTH EVERY DAY 2023 active Not Available Not Available Not Avai lable esomepraz ole magnesium 40 mg capsule,d elayed release TAKE 1 CAPSULE BY MOUTH EVERY DAY 09/16 completed Not Available Not Available Not Available prednison e 50 mg tablet active Not Available Not Available Not Available nitroglyc luciana 0.4 mg sublingua l tablet PLACE 1 TABLET UNDER THE TONGUE EVERY 5 MINUTES NEEDED FOR CHEST PAIN. active Not Available Not Available No t Available montel[address] st 10 mg tablet TAKE 1 TABLET BY MOUTH EVERY DAY 09/21 completed Not Available Not Available Not Available quinapril 20 mg tablet TAKE 1 TABLET BY MOUTH TWICE A DAY 05/27 completed Not Available Not Available Not Available pravastat in 20 mg tablet take 1 po qd 11/17 completed dose increase d Not Available Not Available Not Available furosemid e 20 mg tablet TAKE 1 TABLET BY MOUTH EVERY DAY 04/27 completed Not Available Not Available Not Available ergocalci ferol (vitamin D2) 1,250 mcg (50,000 unit) capsule TAKE 1 CAPSULE BY MOUTH ONCE WEEKLY 03/19 completed Not Available Not Available Not Available methylpre dnisolone 4 mg tablets in a dose pack TAKE 6 TABLETS ON DAY 1 DIRECTED ON PACKAGE AND DECREASE BY 1 TAB EACH DAY FOR A TOTAL OF 6 DAYS 05/27 completed Not Available Not Available Not Available losartan 100 mg tablet TAKE 1 TABLET BY MOUTH EVERY DAY 2023 active Not Available Not Available Not Avai lable fluticaso ne propionat e 50 mcg/actua tion nasal spray,samara pension SPRAY 2 SPRAYS INTO EACH NOSTRIL EVERY DAY 04/27 completed Not Available Not Available Not Available metformin ER 500 mg tablet,ex tended release 24 hr Take 1 tablet every day by oral route. 09/16 completed pt not taking Not Available Not Available Not Available naproxen 500 mg tablet active Not Available Not Available Not Available Ventolin HFA 90 mcg/actua tion aerosol inhaler TAKE 2 PUFFS BY MOUTH EVERY 4 HOURS 02/13 completed Not Available Not Available Not Available metaxalon e 800 mg tablet active Not Available Not Available Not Available Boostrix Tdap 2.5 Lf unit-8 mcg-5 Lf/0.5 mL intramusc ular syringe TO BE ADMINIST ERED BY [email or web address] FOR IMMUNIZA TION 04/27 completed Not Available Not Available Not Available Bystolic 2.5 mg tablet TAKE 1 TABLET BY MOUTH DAILY 09/27 completed changed to Coreg Not Available Not Available Not Available Brilinta 90 mg tablet TAKE 1 TABLET BY MOUTH EVERY 12 HOURS 04/27 completed Not Available Not Available Not Available Chantix Continuin g Month Box 1 mg tablet TAKE 1 TABLET BY MOUTH TWICE A DAY 05/24 completed Not Available Not Available Not Available Chantix Starting Month Box 0.5 mg (11)-1 mg (42) tablets in dose pack INSTRUCT IONS IN BOX 05/24 completed Not Available Not Available Not Available Fluarix Quad 7413-2081 (PF) 60 mcg (15 mcg x 4)/0.5 mL IM syringe TO BE ADMINIST ERED BY PHARMACI [employer] FOR IMMUNIZA TION 12/23 completed Not Available Not Available Not Available Fluzone Quad (P F) 60 mcg(15 mcgx4)/0. 5 mL intramusc ular syringe TO BE ADMINIST ERED BY [facility] [employer] FOR IMMUNIZA TION 04/27 completed Not Available Not Available Not Available Afluria Qd (36 mos up)(PF)60 mcg (15 mcg x4)/0.5 mL IM syringe TO BE ADMINIST ERED BY PHARMACI ST FOR IMMUNIZA TION 05/24 completed Not Available Not Available Not Available Afluria Qd (36 mos up)(PF)60 mcg (15 mcg x4)/0.5 mL IM syringe PHARMACY ADMINIST ERED 02/23 completed Not Available Not Available Not Available Vitals Date Recorded Body mass index (BMI) Body height Heart rate Body temperature Body weight Systolic blood pressure Diastolic blood pressure Provider Name and Address Organization Details Last Updated DateTime 2 29.5 kg/m2 172.72 cm 60 /min 97.3 [degF] 25846.9 2 g 140 mm[Hg] 80 mm[Hg] Not Available [facility] 3 04:48:12 Date Recorded Body mass index (BMI) Body height Oxygen saturation Oxygen saturation in Arterial blood by Pulse oximetry Heart rate Body temperature Body weight Systolic blood pressure Diastolic blood pressure Provider Name and Address Organization Details Last Updated DateTime 2 30.6 kg/m2 172.72 cm 100 % 100 % 70 /min 97.9 [degF] 11163.0 7 g 120 mm[Hg] 72 mm[Hg] Not Available [facility] 3 04:48:12 Date Recorded Body height Body mass index (BMI) Body weight Body temperature Heart rate Oxygen saturation Oxygen saturation in Arterial blood by Pulse oximetry Systolic blood pressure Diastolic blood pressure Provider Name and Address Organization Details Last Updated DateTime 3 172.72 cm 30 kg/m2 87596.7 g 97.9 [degF] 79 /min 99 % 99 % 148 mm[Hg] 88 mm[Hg] Miller Claros CMA [place] [facility] [place] [employer] 3 16:56:41 Date Recorded Body height Body mass index (BMI) Body weight Body temperature Heart rate Oxygen saturation Oxygen saturation in Arterial blood by Pulse oximetry Systolic blood pressure Diastolic blood pressure Provider Name and Address Organization Details Last Updated DateTime 3 172.72 cm 30.7 kg/m2 91173.6 6 g 98.2 [degF] 79 /min 98 % 98 % 158 mm[Hg] 92 mm[Hg] Sammie Soto RN [employer] 3 08:14:59 Date Recorded Body height Body mass index (BMI) Body weight Body temperature Heart rate Oxygen saturation Oxygen saturation in Arterial blood by Pulse oximetry Systolic blood pressure Diastolic blood pressure Provider Name and Address Organization Details Last Updated DateTime 4 172.72 cm 33.3 kg/m2 58396.7 3 g 97.7 [degF] 86 /min 98 % 98 % 176 mm[Hg] 110 mm[Hg] Yas Gamboa RN [employer] 4 09:10:02 Date Recorded Systolic blood pressure Diastolic blood pressure Provider Name and Address Organization Details Last Updated DateTime 05/28/2023 162 mm[Hg] 90 mm[Hg] Kellen Velasquez RN [employer] 05/28/2023 09:36:08 Social History Question Answer Notes LastModified by Organization Details LastModified Time Tobacco Smoking Status Former Smoker week before [place] 02/2021 started smoking age 15 1 ppd smoking until 2020 Debbi Ch MD [address], [address], [employer] 05/28/2023 09:17:08 Do You Have An Advance Directive? No MIGRATION.[id number] Information not available 05/21/2022 What Is Your Level Of Alcohol Consumption? Occasional [id number] Information not available 05/21/2022 What Is Your Level Of Caffeine Consumption? Moderate MIGRATION.030 [id number] Information not available 05/21/2022 How Much Tobacco Do You Chew? None MIGRATION.030 [id number] Information not available 05/21/2022 In The 14 Days Before Symptom Onset, Have You Had Close Contact With A Laboratory-conf irmed COVID-19 While That Case Was Ill? No MIGRATION.030 [id number] Information not available 05/21/2022 In The 14 Days Before Symptom Onset, Have You Had Close Contact With A Person Who Is Under Investigation For COVID-19 While That Person Was Ill? No MIGRATION.030 [id number] Information not available 05/21/2022 What Type Of Diet Are You Following? REGULAR MIGRATION.030 [id number] Information not available 05/21/2022 Which Illicit Or Recreational Drugs Have You Used? None MIGRATION.0301 [id number] Information not available 05/21/2022 Do You Or Have You Ever Used E-cigarettes Or Vape? 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 No MIGRATION.0301 [id number] Information not available 05/21/2022 What Is The Fluoride Status Of Your Home? Unknown MIGRATION.0301 [id number] Information not available 05/21/2022 When Did You Quit Smoking? 1-5yearssincelastc igarette MIGRATION.0301 115127 Information not available 05/21/2022 Are There Any Guns Present In Your Home? Yes MIGRATION.0301 [id number] Information not available 05/21/2022 Do You Use Insect Repellent Routinely? No MIGRATION.0301 020439 Information not available 05/21/2022 Where Do You Live? SingleLevelHouse MIGRATION.0301 046518 Information not available 05/21/2022 Do You Have A Medical Power Of Senior Firewall Engineer? No MIGRATION.0301 [id number] Information not available 05/21/2022 What Was The Date Of Your Most Recent Tobacco Screening? 05/28/2023 [email or web address] Information not available 06/15/2023 What Is Your Current Pack Years? 30ormorepackyears MIGRATION.0301 494502 Information not available 05/21/2022 Have You Ever Been Counseled For Unhealthy Alcohol Use? No MIGRATION.0301 269096 Information not available 05/21/2022 Do You Have Any Pets? No MIGRATION.0301 605610 Information not available 05/21/2022 What Is Your Relationship Status? MIGRATION.0301 695827 Information not available 05/21/2022 Do You Use Your Seat Belt Or Car Seat Routinely? Yes MIGRATION.0301 106038 Information not available 05/21/2022 Do You Have Smoke And Carbon Monoxide Detectors In Your Home? Yes MIGRATION.0301 811143 Information not available 05/21/2022 At What Age Did You Start Smoking Tobacco? 15 MIGRATION.0301 [id number] Information not available 05/21/2022 Are You Passively Exposed To Smoke? No MIGRATION.0301 123339 Information not available 05/21/2022 Do You Or Have You Ever Used Smokeless Tobacco? Never Used Smokeless Tobacco MIGRATION.0301 855075 Information not available 05/21/2022 Are There Any Smokers In Your House? No MIGRATION.0301 267001 Information not available 05/21/2022 How Much Tobacco Do You Smoke? No MIGRATION.0301 [id number] Information not available 05/21/2022 What Types Of Sporting Activities Do You Participate In? None MIGRATION.0301 995601 Information not available 05/21/2022 Do You Feel Stressed (tense, Restless, Nervous, Or Anxious, Or Unable To Sleep At Night)? [id number] MIGRATION.0301 [id number] Information not available 05/21/2022 Do You Use Any Illicit Or Recreational Drugs? No MIGRATION.0301 594512 Information not available 05/21/2022 Do You Use Sunscreen Routinely? No MIGRATION.0301 [id number] Information not available 05/21/2022 Has Tobacco Cessation Counseling Been Provided? No N/A MIGRATION.0301 627485 Information not available 05/21/2022 How Many Years Have You Smoked Tobacco? 40 MIGRATION.0301 313845 Information not available 05/21/2022 Have You Recently Traveled Abroad? No MIGRATION.0301 195901 Information not available 05/21/2022 Do You Have Any Dietary Restrictions? No MIGRATION.0301 [id number] Information not available 05/21/2022 Do You Or Have You Ever Used Any Other Forms Of Tobacco Or Nicotine? No MIGRATION.0301 [id number] Information not available 05/21/2022 Sex: Male Functional Status Question Answer Note LastModified by Organizat ion Details LastModified Time What is your exercise level? Occasional [id number] Information not available 05/21/2022 Mental Status None recorded. Family History Relationship Description Onset Age of this Age Resolved Age Notes LastModified by Organization Details LastModified Time Father Diabetes mellitus MIGRATION.473 [id number] Not available 05/21/2022 04:42:57 Mother Cerebrovascu lar accident 50s MIGRATION.562 [id number] Not available 05/21/2022 04:42:57 Mother Hypertensive disorder MIGRATION.567 [id number] Not available 05/21/2022 04:42:57 Medical History Condition Response NERVE DISEASE N BLINDNESS N RHEUMATIC FEVER N KIDNEY STONES N BLADDER PROBLEMS N MRSA N OTHER # 1 N POLIO N LUNG DISEASE/DISORDER N RADIATION / CHEMOTHERAPY N COPD N Other # 2 N BLOOD DISEASES N SURGERY N EAR OR HEARING PROBLEMS N MUMPS N DEPRESSION (INCLUDING POST ) N BOWEL PROBLEMS N STROKE/TIA N ULCERS N BENIGN PROSTATIC HYPERPLASIA N MEASLES N MYOCARDIAL INFARCTION N OBESITY N GERD/NAUSEA N ANEURYSM N URINARY/BLADDER/KIDNEY PROBLEMS N CORONARY ARTERY DISEASE (CAD) Y ADDICTION CONCERNS N Impotence N ENDOMETRIOSIS N USE OF BLOOD THINNERS N SKIN PROBLEMS N GASTROINTESTINAL DISORDER N PERIPHERAL VASCULAR DISEASE N MUSCLE,JOINT OR BONE PROBLEMS N GASTROINTESTINAL BLEEDING N BLOOD CLOTS N ASTHMA N CATARACTS N ERECTILE DYSFUNCTION N VARICOSITIES N GI PROBLEMS N Low Testosterone N INFERTILITY N AIDS/HIV N CHEMOTHERAPY / RADIATION N LIVER DISEASE N MALE HYPOGONADISM N HYPERTENSION Y Deficiency N ANXIETY DISORDER N BLOOD TRANSFUSION N ANEMIA/BLOOD DISORDER N CHRONIC EAR INFECTIONS N BRONCHITIS N TUBERCULOSIS N GLAUCOMA N FOOT PROBLEM N DIVERTICULITIS N SLEEP APNEA N CHICKENPOX N INFECTIOUS DISEASE N PROSTATE N HEART ARRHYTHMIA N INSOMNIA N HIGH CHOLESTEROL / HYPERLIPIDEMIA Y EYE PROBLEMS N HYPERTHYROIDISM N NEUROLOGICAL PROBLEMS N EDEMA N CHRONIC PAIN SYNDROME N HYPOTHYROIDISM N CAROTID BLOCKAGE N CONSTIPATION N BACK / NECK PROBLEMS N HAVE YOU BEEN HOSPITALIZED OR SEEN IN [facility] IN THE PAST YEAR ? N ATHEROSCLEROSIS N BREAST PROBLEMS N DIALYSIS N ECZEMA N OSTEOPOROSIS N ARTHRITIS N NO SIGNIFICANT PAST MEDICAL HISTORY N APPENDICITIS N DIABETES, TYPE Y BAD TEETH N ENT N HEARTBURN / REFLUX N AUTISM SPECTRUM DISORDER (ASD) N HEPATITIS / LIVER DISEASE N GOUT N SLEEP DISORDER N ALZHEIMER'S DISEASE N Brain Problems N DEMENTIA N HERPES N SEIZURES/EPILEPSY N HEADACHES/MIGRAINES N VASCULAR DISEASE N PACEMAKER N Blood Disorder N DIZZINESS N HEART DISEASE/HEART PROBLEMS N KIDNEY DISEASE N MULTIPLE SCLEROSIS N CANCER: SPECIFY N CARDIAC ARRHYTHMIA N ATRIAL FIBRILLATION N Gall Stones N PULMONARY EMBOLISM N AUTOIMMUNE DISEASE N Immunizations Vaccine Type Date Status Note Provider Nam e and Address Organization Details Recorded Time Influenza, split virus, quadrivalent, PF 6 completed Not Available [facility] 05/21/2022 04:57:43 zoster recombinant 3 completed Not Available [facility] 05/21/2022 04:57:43 Pneumococcal conjugate PCV 13 1 completed Not Available [facility] 05/21/2022 04:57:43 Influenza, split virus, trivalent, preservative 1 completed Not Available [facility] 05/21/2022 04:57:43 Influenza, split virus, quadrivalent, preservative 0 completed Not Available [facility] 05/21/2022 04:57:43 Influenza, split virus, quadrivalent, preservative 9 completed Not Available [facility] 05/21/2022 04:57:43 Tdap 9 completed Not Available [facility] 05/21/2022 04:57:43 Tdap 8 completed Not Available [facility] 05/21/2022 04:57:43 Influenza, split virus, quadrivalent, preservative 8 completed Not Available [facility] 05/21/2022 04:57:43 Influenza, split virus, quadrivalent, preservative 7 completed Not Available [facility] 05/21/2022 04:57:44 Influenza, split virus, quadrivalent, preservative 2 completed Not Available [facility] 05/21/2022 04:57:44 COVID-19, mRNA, LNP-S, PF, 100 mcg/0.5mL dose or 50 mcg/0.25mL dose 2 completed Not Available [facility] 05/21/2022 04:57:44 COVID-19, mRNA, LNP-S, PF, 100 mcg/0.5mL dose or 50 mcg/0.25mL dose 1 completed Not Available [facility] 05/21/2022 04:57:44 COVID-19, mRNA, LNP-S, PF, 100 mcg/0.5mL dose or 50 mcg/0.25mL dose 1 completed Not Available [facility] 05/21/2022 04:57:44 Past Encounters Encounter ID Performer Location Encounter Start Date Encounter Closed Date Diagnosis/Indication Diagnosis SNOMED-CT Code Diagnosis ICD10 Code Diagnosis Note [id number] [facility] [address] [facility], [address] [place] [address] 06/29/2020 00:00:00 07/08/2020 18:44:58 [id number] [facility] [place] [address] [place] [address] y , [place] [address] 11/14/2020 00:00:00 11/14/2020 15:17:16 [id number] [facility] Internal [facility] [place] [address] [place] [address] y , [place] [address] 02/13/2021 00:00:00 02/13/2021 15:47:00 [id number] [facility] Internal [facility] [place] [address] [place] [address] y , [place] [address] 04/08/2021 00:00:00 04/10/2021 10:03:51 [id number] [facility] Internal [facility] [place] [address] [place] [address] y , [place] [address] 09/16/2021 00:00:00 09/16/2021 17:51:19 [id number] [facility] [address] [place] [address] 03/19/2022 00:00:00 03/21/2022 11:18:18 [id number] Debbi Ch MD [facility] [address] [place] [address] 06/18/2022 16:48:51 06/18/2022 17:28:02 Gastroesophageal reflux disease without esophagitis 029241703 K21.9 famotidine 40 mg dailyconti nue PPIAvoid greasy/spi cy/acidic foodEat small, frequent mealsCall if any worsening symptoms including increased pain or blood in stools or if symptoms do not resolve in 14 days Lumbar spondylosis 08543 0009 M47.896 unclear if the source of his pain is GI or muskuloske letaltrial of short course of prednisone with food, avoid other nsaids [id number] Debbi Ch MD [facility] Primary Care [facility] [place] [address] [facility] [address] [place] [address] 11/20/2022 08:09:11 11/20/2022 08:53:59 Hyperlipidemia 16973922 E78.5 Essential hypertension 55879705 I10 hold carvedilol for 2 weeks to see if it has impact on GI symptomsch kyler home bps 2x per week and send portal update in 2 weeks Prediabetes 774518567 R7 3.03 Gastroesop hageal reflux disease without esophagitis 229681813 K21.9 Has had extensive workup with GIhold carvedilol as noted abovesend update through portal in 2 weeks [id number] NEVAEH SOTO CMA [facility] Primary Care [facility] [place] [address] [facility] [address] [place] [address] 05/28/2023 09:00:44 05/28/2023 09:37:10 Adult health examination 245784905 Z00.00 LDCT orderedRem ain nonsmokerP SA and fasting labs orderedCol oguard normal 2021 per GI note, repeat nnual flu vaccineRec ommend covid boosterTda p 2019Shingr ix 02/10, 04/14Prevna r 13 1Prevna r 20 2022 Tobacco user 346192215 Z 72.0 Remain nonsmokerL DCT ordered Hyperlipidemia 88833113 E78.5 Prediabetes 338669753 R7 3.03 Essential hypertension 04000439 I10 Vitamin D deficiency 347 13363 E55.9 Screening for malignant neoplasm of prostate 311628528 Z12.5 Health Concerns Section Related Observation LastModified by Organization Detai ls LastModified Time None Recorded Concern Status LastModified by Organization Details LastModified Time None Recorded Advance Directives Directive N: Payers Encounter Date Sequence Insurance Name Policy Number Policy Luther Covered Member ID Luther Member ID Guarantor Name 06/18/2022 1 [place] [id number] Michael C White [id number] Michael C White 11/20/2022 1 [place] [id number] Michael C White [id number] Michael C White 05/28/2023 1 [place] [id number] Michael C White [id number] Michael C White Notes Date Note Type Note Provider Name and Address Organization Details Recorded Time 06/18/2022 text/html Had f/u with cardiology in August, saw him in March does not feel well he d/c his amlodipine as instructed-home bps are running 114-130s/80s had labs at [facility] on Thursday [address] showed lumbar spondylosis he is taking his pantoprazole as prescribed-no heartburn/GERD has sharp pain across waist, can be across left side, sharp pain, occ eating makes it worse. [place] nauseated. He did stop pantoprazole for a while but then restarted it, didn't notice much different. Debbi Ch MD [address], [place], [address], [place] 06/20/2022 07:53:22 11/20/2022 text/html Had f/u with cardiology in August, saw him in March does not feel well he d/c his amlodipine as instructed-home bps are running 114-130s/80s had labs at [facility] on Thursday [address] showed lumbar spondylosis he is taking his pantoprazole as prescribed-no heartburn/GERD has sharp pain across waist, can be across left side, sharp pain, occ eating makes it worse. [place] nauseated. He did stop pantoprazole for a while but then restarted it, didn't notice much different. update 11/20/22: Home blood pressures are usually 130s at home. He believes his stomach issues may be due in part to carvedilol, but cardiology was concerned symptoms could be worse on a different beta natalia still feels bloated but stomach pain somewhat improved on align probiotic. However, he continues to have regular epigastric pain/pressure. He takes tums, tylenol daily. Debbi Ch MD [address], [place], [address], [place] 11/20/2022 08:39:54 05/28/2023 text/html Here for check up Debbi Ch MD [address], [place], [address], [place] 06/15/2023 19:29:28
--- OUTSIDE RECORDS SUMMARY | 2024-07-19 00:10 | XMS_ITS | Clinical Summary ---
Author Organization [facility] Address [address] [place] [address] Care Team Providers Care Melt Superintendant Name Role Phone Chelsie Abrams MD Primary Care Provider Source Comments [facility],non-owned Affiliates and Associated Physician Practices is amultiple site organization consisting of ambulatory clinics and hospital sitesin [place], [place], [place] and [place]. This disclosure is being madepursuant to the Care Everywhere program and may not contain all information available regarding this patient. Last updated 17.[employer] [facility] Allergies No known active allergies Medications * Be aware that medications may not be up to date on this document. Alwaysverify current medications with the patient. amLODIPine (NORVASC) 2.5 MG tablet Take 2.5 mg by mouth once daily Active atorvastatin (LIPITOR) 40 MG tablet every 24 hours Activ e carvedilol (COREG) 3.125 MG tablet carvedilol 3.125 mg tablet TAKE 1 TABLET BY MOUTH TWICE A DAY 0 Active clopidogrel (PLAVIX) 75 MG tablet clopidogrel 75 mg tablet TAKE 1 TABLET BY MOUTH DAILY 1 Active famotidine (PEPCID) 20 MG tablet TAKE 1 TABLET BY MOUTH AFTER MEALS TWICE DAILY 1 Active HYDROcodone-regine taminophen (NORCO) 5-325 MG tablet hydrocodone 5 mg-acetaminophen 325 mg tablet TAKE 1 TABLET BY MOUTH NEEDED TWICE DAILY. NO ALCOHOL, NO DRIVING, NO OTHER SEDATING MEDICATIONS Active montelukast (SINGULAIR) 10 MG tablet Take 10 mg by mouth once daily Active pantoprazole EC (PROTONIX) 40 MG tablet every 24 hours Activ e quinapril (ACCUPRIL) 20 MG tablet quinapril 20 mg tablet TAKE 1 TABLET BY MOUTH TWICE A DAY Active Active Problems Problem Noted Date Diagnosed Date Tobacco user 12/12/2020 Low back pain without sciatica 12/12/2020 Coronary arteriosclerosis 10/06/2017 Essential hypertension 09/14/2017 Overview (12/12/2020): Last Assessment & Plan: Blood pressure is controlled. Continue current treatment Mixed hyperlipidemia 09/14/2017 Overview (12/12/2020): Last Assessment & Plan: Continue statin. 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 Gender Identity Not on file Sexual Orientation Not on file Last Filed Vital Signs Vital Sign Reading Time Taken Comments Blood Pressure 147/95 12/12/2020 2:23 PM CDT Pulse 98 12/12/2020 2:23 PM CDT Temperature 36.4 C (97.5 F) 12/12/2020 2:23 PM CDT Respiratory Rate - - Oxygen Saturation 97% 12/12/2020 2:23 PM CDT Inhaled Oxygen Concentration - - Weight 93.4 kg (206 lb) 12/12/2020 2:23 PM CDT Height 177.8 cm (5' 10 ) 12/12/2020 2:23 PM CDT Body Mass Index 29.56 12/12/2020 2:23 PM CDT Plan of Treatment Health Maintenance Due Date Last Done Comments COLOGUARD (AGES 45-75) - COLON CA SCREENING 1964 COLON MONITORING 1964 COLONOSCOPY - COLON CA SCREENING 1964 CT COLONOGRAPHY - COLON CA SCREENING 1964 Colorectal Cancer Screening 1964 FIT - COLON CA SCREENING 1964 FLEX SIG - COLON CA SCREENING 1964 HIV SCREENING 11/08/1979 HEPATITIS C SCREENING 11/03/1982 DTAP/TDAP/TD VACCINES (1 - Tdap) 11/08/1983 HEPATITIS B VACCINE (1 of 3 - 19+ 3-dose series) 11/08/1983 PNEUMOCOCCAL VACCINE 50+ (1 of 2 - PCV) 11/08/1983 ZOSTER VACCINE (1 of 2) 2014 SCREENING FOR DIABETES 12/12/2020 COVID-19 VACCINE (3 - season) 2023 06/16/2020, 05/19/2020 DEPRESSION SCREENING 03/23/2024 INFLUENZA VACCINE (Season Ended) 2024 12/28/2019, 02/08/2019, 12/16/2017, Additional history exists HIB VACCINE Aged Out No longer eligi ble based on patient's age to complete this topic HPV VACCINE Aged Out No longer eligi ble based on patient's age to complete this topic MENINGOCOCCAL (Group B) VACCINE SHARED DECISION-MAKING Aged Out No longer eligible based on patient's age to complete this topic MENINGOCOCCAL GROUPS A/C/Y/W VACCINE Aged Out No longer eligible based on patient's age to complete this topic Insurance [facility] SELF PAY NO INSURANCE Member Subscriber Plan / Payer (Ef fective for All Dates) Name:Michael Davis Member ID:Not on file Relation to Subscriber:Not on file Name:MICHAEL DAVIS Subscriber ID:Not on file (Home) Address: [address] [place] [phone] Payer ID:Not on file Group ID:Not on file Type:Self Pay Address: [place], [place] Care Teams Melt Superintendant Relationship Specialty Start Date End Date Chelsie Abrams MD [address] [phone] PCP - General 12/12/20
--- OUTSIDE RECORDS SUMMARY | 2024-07-19 00:10 | XMS_ITS | Referral Summary ---
Author Organization [facility] [address] [facility] [address] Address [address] [place] [address] Care Team Providers Care Website Admin Name Role Phone Nilo De La Garza MD Primary Care Provider [phone] Encounters Date Type Department Care Team Description 05/23/2024 8:15 AM CONSTRUCTION CARPENTER Office Visit [facility] Medical [facility] Cardiology [address] [facility] [address] [place] [address] Jeferson Brooks MD Coronary artery disease of [place] artery of [place] heart with stable angina pectoris (Primary Dx); Mixed hyperlipidemia; Essential hypertension; Tobacco abuse counseling from Last 3 Months Allergies No known active allergies Medications atorvastatin calcium (ATORVASTATIN ORAL) Take 40 mg by mouth daily 12/06/2019 Active nitroglycerin (NITROSTAT) 0.[address] 1 tablet (0.4 mg total) under the tongue every 5 (five) minutes as needed for chest pain 25 tablet 05/09/[address] (PROTONIX) 40 mg EC tablet Take 1 tablet (40 mg total) by mouth daily 12/19/2021 Active losartan (COZAAR) 100 mg tablet Take 1 tablet (100 mg total) by mouth daily Active guanFACINE (TENEX) 1 mg tablet Take 1 tablet (1 mg total) by mouth nightly 30 tablet 11 11/09/2023 Active clopidogreL (PLAVIX) 75 mg tabletIndicatio ns:Coronary artery disease involving [place] coronary artery of [place] heart without angina pectoris TAKE 1 TABLET BY MOUTH EVERY DAY 90 tablet 3 12/24/2023 Active carvediloL (COREG) 3.125 mg tablet TAKE 1 TABLET BY MOUTH TWICE A DAY 180 tablet 2 04/01/2024 Active amLODIPine (NORVASC) 2.5 mg tablet Take 1 tablet (2.5 mg total) by mouth daily 30 tablet 11 05/23/2024 Active Active Problems Problem Noted Date Diagnosed Date Other fatigue 10/09/2017 Assessment & Plan (10/09/2017 10:22 AM CDT): Also patient complains of fatigability after his heart attack. His states that he used to smoke pack per day, drink 3 for cups of coffee every day, drink 2-10 beers every day and he quit doing that since the AL. Nifedipine was stopped. Coronary artery disease of n ative artery of [place] heart with stable angina pectoris 09/14/2017 Assessment & Plan (12/15/2017 8:12 AM CDT): Continue aspirin, Plavix, Pravachol. Patient does have 50% mid RCA that is small in size and 40% stenosis in the LAD. RCA is not a good target for intervention given small size. Assessment & Plan (10/09/2017 10:20 AM CDT): Continue aspirin and Plavix. Patient is very concerned about developing a new heart attack. He does have 50% mid RCA that is small in size and 40% stenosis in the LAD. However I explained to him that the RCA is not a good target for any intervention given its small size and as long as we managing it with medications, we can prevent myocardial infarction. Assessment & Plan (09/28/2017 8:34 AM CDT): Continue aspirin, Plavix, statin. Assessment & Plan (09/14/2017 9:45 AM CDT): I will switch patient from Brilinta to Plavix because of possible side effect from Brilinta including nausea and dizziness. Tonight he will take both Brilinta and Plavix and tomorrow he will take 2 pills of Plavix and then after that 1 pull Plavix everyday. EKG today is unchanged from before. Mixed hyperlipidemia 09/14/2017 Assessment & Plan (12/15/2017 8:07 AM CDT): Continue statin. Assessment & Plan (10/09/2017 10:19 AM CDT): Continue pravastatin. Assessment & Plan (09/28/2017 8:35 AM CDT): Continue statin. Assessment & Plan (09/14/2017 9:45 AM CDT): Continue pravastatin. Tobacco abuse counseling 09/14/2017 Assessment & Plan (12/15/2017 8:08 AM CDT): Advised about quitting smoking but he has cut down on a month of smoking and does not seem wanted to quit. Assessment & Plan (09/14/2017 9:46 AM CDT): He cut down on smoking and has smoked 10 cigarettes since his AL twenty-five days ago. I advised patient to quit completely smoking Essential hypertension 09/14/2017 Assessment & Plan (12/15/2017 8:07 AM CDT): Blood pressure is controlled. Continue current treatment Assessment & Plan (10/09/2017 10:19 AM CDT): Blood pressure is controlled. Continue quinapril. Patient used to take nifedipine and was stopped because of leg fatigue. Assessment & Plan (09/28/2017 8:34 AM CDT): Blood pressure at home is well controlled by readings. Continue current treatment Assessment & Plan (09/14/2017 9:45 AM CDT): Blood pressure is controlled. Continue current treatment. He feels some fatigue since started on nifedipine by Dr. Matute a while ago. He was advised by Dr. Matute to take that nifedipine at night.. Dizziness 09/14/2017 Assessment & Plan (12/15/2017 8:12 AM CDT): Resolved. Continue current medication. Isolated PVCs on event monitor without ventricular tachycardia Assessment & Plan (10/09/2017 10:21 AM CDT): At this time I will order 1 week event monitor to rule out significant arrhythmias. Not orthostatic on previous visits. If event monitor does not show arrhythmias and patient remains symptomatic and may consider repeating cardiac catheterization. Assessment & Plan (09/28/2017 8:35 AM CDT): Resolved after switching Brilinta to Plavix. Assessment & Plan (09/14/2017 9:46 AM CDT): Could be a side effect from Brilinta and therefore switched to Plavix and re- evaluate Resolved Problems Problem Noted Date Diagnosed Date Resolved Date Chest pain 01/27/2022 04/20/2023 Overview (01/27/2022): Added automatically from request for surgery [id number] Social History Tobacco Use Types Packs/Day Years Used Date Smoking Tobacco: Former Cigarettes Q uit: 02/20/2021 Smokeless Tobacco: Never Tobacco Cessation:Counseling Given: Not Answered Alcohol Use Standard Drinks/Week Comments Yes 14 (1 standard drink = 0.6 oz pu re alcohol) AUDIT-C Answer Date Recorded Q1: How often do you have a drink containing alc ohol? 2-4 times a month 03/04/2022 Q2: How many drinks containi ng alcohol do you have on a typical day when you are drinking? 1 or 2 03/04/2022 Q3: How often do you have si x or more drinks on one occasion? Never 03/04/2022 Sex and Gender Information Value Date Recorded Sex Assigned at Not on file Legal Sex Male 8:46 AM CDT Gender Identity Not on file Sexual Orientation Not on file Last Filed Vital Signs Vital Sign Reading Time Taken Comments Blood Pressure 150/90 05/23/2024 8:08 AM CONSTRUCTION CARPENTER Pulse 84 05/23/2024 8:08 AM CONSTRUCTION CARPENTER Temperature 36.7 C (98.1 F) 03/04/2022 8:46 AM CONSTRUCTION CARPENTER Respiratory Rate 16 03/04/2022 8:46 AM CONSTRUCTION CARPENTER Oxygen Saturation 97% 05/23/2024 8: 08 AM CONSTRUCTION CARPENTER Inhaled Oxygen Concentration - - Weight 103.5 kg (228 lb 3.2 oz) 05/23/2024 8:08 AM CONSTRUCTION CARPENTER Height 175.3 cm (5' 9 ) 05/23/2024 8:08 AM CONSTRUCTION CARPENTER Body Mass Index 33.7 05/23/2024 8:08 AM CONSTRUCTION CARPENTER Plan of Treatment Not on file Medical Devices Implanted Type Area Network Security Architect Device Identifier Shelf Expiration Date Model / Serial / Lot [employer] Synergy Xd Monorail 2.5mm 20mm 144cm Delivery System 1 Access [id number] - [id number] Implanted:Qty: 1 on 03/04/2022 by Jeferson Brooks MD at [facility] [employer] 06/20/2023 [id number] / / [id number] [employer] Angio-Seal Vip 6fr Closere Device [id number] - [id number] Implanted:Qty: 1 on 03/04/2022 by Jeferson Brooks MD at [facility] 12/20/2022 [id number] / / [id number] Procedures Procedure Name Priority Date/Time Associated Diagnosis Comments POCT LIPID PANEL Routine 05/23/2024 8:49 AM CONSTRUCTION CARPENTER Mixed hyperlipidemia from Last 3 Months Results * POCT lipid panel (05/23/2024 8:49 AM CONSTRUCTION CARPENTER) Cholesterol, POC 189 mg/dL HDL, POC 58 mg/dL Triglycerides, POC 189 mg/dL LDL Cholesterol POC 94 mg/dL Chol/HDL Ratio, POC 1.6 Non-HDL Cholesterol, POC 131 mg/dL Cholesterol Total, POC 189 mg/dL Capillary blood 05/23/2024 8 :49 AM CONSTRUCTION CARPENTER us Jeferson Brooks MD POINT OF CARE TEST O RDERABLES Final Result from Last 3 Months Insurance [facility] [place] CHOICE [facility] [place] Advance Directives For more information, please contact: [phone] * Full Code (Latest Code Status on File) Date Activated Date Inactivated Comments 03/04/2022 1:29 PM 03/04/2022 7:57 PM Care Teams Website Admin Relationship Specialty Start Date End Date Nilo De La Garza MD PCP - General Family Practice 11/09/23
--- OUTSIDE RECORDS SUMMARY | 2024-07-19 00:10 | XMS_ITS | Clinical Summary ---
Author Organization [facility] [place] [address] Address [address] [place] [address] Care Team Providers Care Master Carpenter Name Role Phone Nilo De La Garza MD Primary Care Provider [phone] Allergies No known active allergies Medications atorvastatin [...] by mouth nightly 30 tablet 11 11/09/2023 5 Active clopidogreL (PLAVIX) 75 mg tabletIndicatio ns:Coronary artery disease involving [place] coronary artery of [place] heart without angina pectoris TAKE 1 TABLET BY MOUTH EVERY DAY 90 tablet 3 12/24/2023 Active carvediloL (COREG) 3.125 mg tablet TAKE 1 TABLET BY MOUTH TWICE A DAY 180 tablet 2 04/01/2024 Active amLODIPine (NORVASC) 2.5 mg tablet Take 1 tablet (2.5 mg total) by mouth daily 30 tablet 11 05/23/2024 6 Active Active Problems Problem Noted Date Diagnosed [...] artery disease of n ative artery of [place] heart with stable angina pectoris 09/14/2017 Assessment [...] (01/27/2022): Added automatically from request for surgery [id number] Encounters Date Type Department Care Team Description 05/23/2024 8:15 AM SUSPENDER MAKER Office Visit [facility] Medical Group Cardiology [address] [place] [phone] Jeferson Brooks MD Coronary artery disease of [place] artery of [place] heart with stable angina pectoris (Primary Dx); Mixed hyperlipidemia; Essential hypertension; Tobacco abuse counseling from Last 3 Months Surgical History Surgery Date Site/Laterality Comments CORONARY ANGIOPLASTY 2 stents CHOLECYSTECTOMY 12/21/2021 - 01/20/2022 THUMB SURGERY Medical History Medical History Date Comments Hypertension Hyperlipidemia Coronary artery disease [place] (myocardial infarction) (HCC) 2018 GERD (gastroesophageal reflux disease) Family History Medical History Relation Name Comments Diabetes Father Hyperlipidemia Father MRSA Father Stroke Father Hyperlipidemia Mother Stroke Mother Relation Name Status Comments Father (Age 62) Mother Alive Social History Tobacco Use Types Packs/Day Years [...] on file Sexual Orientation Not on file Obstetrics History Last Filed Vital Signs Vital Sign Reading Time Taken Comments Blood Pressure 150/90 05/23/2024 8:08 AM SUSPENDER MAKER Pulse 84 05/23/2024 8:08 AM SUSPENDER MAKER Temperature 36.7 C (98.1 F) 03/04/2022 8:46 AM SUSPENDER MAKER Respiratory Rate 16 03/04/2022 8:46 AM SUSPENDER MAKER Oxygen Saturation 97% 05/23/2024 8:08 AM SUSPENDER MAKER Inhaled Oxygen Concentration - - Weight 103.5 kg (228 lb 3.2 oz) 05/23/2024 8:08 AM SUSPENDER MAKER Height 175.3 cm (5' 9 ) 05/23/2024 8:08 AM SUSPENDER MAKER Body Mass Index 33.7 05/23/2024 8:08 AM SUSPENDER MAKER Plan of Treatment Health Maintenance Due Date Last Done Comments Colon Cancer Screening-Colonoscopy 1964 Depression Screening 1964 Hepatitis C Screening 1964 Prostate Cancer Screening-PSA 1964 Hepatitis B Screening 1982 Regular Well Visit/Exam 18-64 1982 Pneumococcal vaccine <65 (2 of 2 - PPSV23) 04/01/2021 02/04/2021 Zoster Vaccine (2 of 2) 05/30/2022 04/04/2022 Influenza Vaccine (#1) 2023 2, 01/26/2021, 12/28/2019, Additional history exists DTaP/Tdap/Td Vaccine (3 - Td or Tdap) 08/19/2028 08/19/2018, 12/16/2017 Medical Devices Implanted Type Area Major Case Detective Device Identifier Shelf Expiration Date Model / Serial / Lot [employer] Synergy Xd Monorail 2.5mm 20mm 144cm Delivery System 1 Access [id number] - [id number] Implanted:Qty: 1 on 03/04/2022 by Jeferson Brooks MD at [facility] [employer] 06/20/2023 [id number] 250 / / [id number] [employer] Angio-Seal Vip 6fr Closere Device [id number] - [id number] Implanted:Qty: 1 on 03/04/2022 by Jeferson Brooks MD at [facility] [employer] 12/20/2022 [id number] / / [id number] Procedures Procedure Name Priority Date/Time Associated Diagnosis Comments POCT LIPID PANEL Routine 05/23/2024 8:49 AM SUSPENDER MAKER Mixed hyperlipidemia from Last 3 Months Results * POCT lipid panel (05/23/2024 8:49 AM SUSPENDER MAKER) Cholesterol, POC 189 mg/dL HDL, POC 58 mg/dL Triglycerides, POC 189 mg/dL LDL Cholesterol POC 94 mg/dL Chol/HDL Ratio, POC 1.6 Non-HDL Cholesterol, POC 131 mg/dL Cholesterol Total, POC 189 mg/dL Capillary blood 05/23/2024 8 :49 AM SUSPENDER MAKER us Jeferson Brooks MD POINT OF CARE TEST O RDERABLES Final Result from Last 3 Months Insurance [employer] [place] [employer] [facility] Advance Directives For more information, please contact: [phone] * Full Code (Latest Code Status on File) Date Activated Date Inactivated Comments 03/04/2022 1:29 PM 03/04/2022 7:57 PM Care Teams Master Carpenter Relationship Specialty Start Date End Date Nilo De La Garza MD PCP - General Family Practice 11/09/23
[2024-07-19 00:46] LABS: Basophils Percent Auto 0.5 % (0.2-1.2); Eosinophils Absolute Auto 0.1 K/mm3 (0-0.3); Eosinophils Percent Auto 1.9 % (0-4.4); Hematocrit 42.1 % (42.0-52.0); Hemoglobin 13.7 g/dL (14.0-18.0); Immature Granulocyte Absolute 0.01 K/mm3 (0.00-0.031); Immature Granulocyte Percent A 0.2 % (0-0.5); Lymphocytes Absolute Auto 1.79 K/mm3 (0.9-3.2); Lymphocytes Percent Auto 28.7 % (18.3-44.2); Mean Corpuscular HGB Conc 32.5 g/dl (32-36); Mean Corpuscular Hemoglobin 30.5 pg (26-34); Mean Corpuscular Volume 93.8 fl (80-100); Mean Platelet Volume 9.6 fl (7.4-10.4); Monocytes Absolute Auto 0.8 K/mm3 (0.1-0.6); Monocytes Percent Auto 13.3 % (2.6-8.5); Neutrophils Absolute Auto 3.5 K/mm3 (1.3-6.7); Neutrophils Percent Auto 55.4 % (45.5-73.1); Platelet Count Result 255 k/mm3 (150-375); Red Blood Count 4.49 M/mm3 (4.6-6.20); Red Cell Distribution Width 13.9 % (11.5-14.5); White Blood Count 6.2 K/mm3 (4.5-10.0)
[2024-07-19 00:56] LABS: Alanine Aminotransferase 25 U/L (6-50); Albumin Level 4.6 g/dL (3.5-5.1); Alkaline Phosphatase 49 U/L (38-126); Anion Gap 9 mmol/L (4-12); Aspartate Amino Transferase 25 U/L (17-59); Bilirubin,Total 0.5 mg/dL (0.2-1.3); Blood Urea Nitrogen 11 mg/dL (9-20); Calcium 10.2 mg/dL (8.4-10.2); Carbon Dioxide 27 mmol/L (22-30); Chloride 103 mmol/L (98-107); Estimated CRCL calculation 92 ml/min; Estimated Glomerular Filt Rate > 60; Glucose 115 mg/dL (65-110); Lipase 122 U/L (23-300); Potassium 3.6 mmol/L (3.4-5.0); Sodium 139 mmol/L (137-145)
[2024-07-19 01:07] LABS: Troponin I < 0.012 ng/mL (0.000-0.034)
[2024-07-19 01:37] LABS: INR 0.9; Prothrombin Time 12.6 Seconds (11.1-14.7)
[2024-07-19 01:38] LABS: Partial Thromboplastin Time 30.7 Seconds (22.3-36.8)
[2024-07-19 03:14] VITALS: PULSE 76; O2SAT 97
[2024-07-19 03:16] VITALS: BP 141/93; PULSE 76; RESP 18; O2SAT 97
[2024-07-19 03:51] LABS: Troponin I < 0.012 ng/mL (0.000-0.034)
[2024-07-19 04:32] VITALS: BP 130/88; PULSE 66; RESP 18; O2SAT 95
--- OUTSIDE RECORDS SUMMARY | 2024-07-19 04:43 | XMS_ITS | Clinical Summary ---
Author Organization [facility] Address [address] [place] [address] Care Team Providers Care Radio Officer Name Role Phone Chelsie Abrams MD Primary Care Provider Source Comments [facility],non-owned Affiliates and Associated Physician Practices is amultiple site organization consisting of ambulatory clinics and hospital sitesin [place], [place], [place] and [place]. This disclosure is being madepursuant to the Care Everywhere program and may not contain all information available regarding this patient. 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 Gender Identity Not on file Sexual Orientation [...] patient's age to complete this topic Insurance [facility] SELF PAY NO INSURANCE Member Subscriber Plan / Payer (Ef fective for All Dates) Name:Michael Davis Member ID:Not on file Relation to Subscriber:Not on file Name:MICHAEL DAVIS Subscriber ID:Not on file (Home) Address: [address] [place] [id number] Payer ID:Not on file Group ID:Not on file Type:Self Pay Address: [place], [place] Care Teams Radio Officer Relationship Specialty Start Date End Date Chelsie Abrams MD [address] [id number] PCP - General 12/12/20
--- OUTSIDE RECORDS SUMMARY | 2024-07-19 04:43 | XMS_ITS | Continuity of Care Document ---
Author Organization [facility] Address [address] [place] [address] Phone Care Team Providers Care Cracker Off Name Role Phone Tenorio OD, Eemry Unavailable Unavailable Advance Directives Directive Yes / No Effective Date File Name No Information Encounters Encounter Description Practice Location Reason(s) For Visit Diagnoses Date Provider Providers Copied on Encounter [facility], [address], [place], [place], [id number], [place] tel:[phone] [facility] [place] No Information [address] Tenorio OD Emery. [address] , [address], [place], [address], [place]. tel:[phone] Family History Family Member Type Diagnosis Age At Onset No Information Payers Payer name Insurance type Covered alliance party ID Authoriza tion(s) [facility] [id number] Social History Type Description Quantity Date Captured [...]
--- NOTE | 2024-07-19 05:33 | ED_ITS ---
HPI - Chest Pain General Chief Complaint: Chest Pain Stated Complaint: chest pain, left arm pain, neck pain Time Seen by Provider: 07/19/24 04:06 History of Present Illness HPI narrative: 58-year-old male with a past medical history including coronary artery disease with stents. Patient has a history of COPD, hypertension, hyperlipidemia as well. Patient presents to the emergency department chief complaint of left- sided chest discomfort. States has been going on for several days. He took a nitro tablet which did not changes symptoms at all. No nausea, vomiting, abdominal pain, back pain. No fever, chills, no trauma or injury. He was otherwise in his normal state of health. Stated that he did speak and talk to his loan and credit manager when this happened previously and was told that was likely not heart related. He is otherwise well-appearing and not in any acute distress. Related Data Home Medications ?Medication ?Instructions ?Recorded ?Confirmed ?Last Taken ?Type atorvastatin 80 mg tablet 40 mg PO HS 05/01/21 01/25/24 01/05/24 History carvedilol 3.125 mg tablet 3.125 mg PO BID 05/01/21 01/25/24 01/05/24 History clopidogrel 75 mg tablet 75 mg PO DAILY 05/01/21 01/25/24 12/31/23 History nitroglycerin 0.4 mg sublingual 0.4 mg sublingual Q5-15M PRN Angina 05/01/21 01/25/24 05/07/21 History tablet aspirin 81 mg tablet,delayed 81 mg PO DAILY 04/30/22 01/25/24 01/05/24 History release simethicone 500 mg capsule 500 mg PO DAILY 11/25/23 01/25/24 01/05/24 History (Phazyme) guanfacine 1 mg tablet 1 mg PO DAILY 12/23/23 01/25/24 01/05/24 History losartan 100 mg tablet 100 mg PO DAILY 12/23/23 01/25/24 01/05/24 History acetaminophen 325 mg capsule 650 mg PO Q4-6H PRN Pain 01/05/24 01/25/24 01/05/24 History (Tylenol) amlodipine 2.5 mg tablet mg PO DAILY 06/01/24 Unknown History atorvastatin 40 mg tablet mg PO DAILY 06/01/24 Unknown History Allergies Allergy/AdvReac Type Severity Reaction Status Date / Time No Known Allergies Allergy Verified 01/25/24 13:33 Review of Systems 2 Review of Systems: As reviewed above in [facility] Past Medical History Medical History IBS (irritable bowel syndrome) Heart disease Diabetes COPD (chronic obstructive pulmonary disease) Arthritis Nausea Nonerosive esophageal reflux disease Left groin pain Hyperlipidemia HTN (hypertension) CAD (coronary artery disease) Overweight GERD (gastroesophageal reflux disease) Surgical History Surgical History Hx laparoscopic cholecystectomy 01/09/2022 - laparoscopic cholecystectomy with near infrared indocyanine green fluorescent cholangiography History of coronary artery stent placement , 2017 Family History Family History Mother Diabetes mellitus Hypertension Cerebrovascular accident Father Diabetes mellitus Social History Social History Smoking packs per day: 1 Smoking cigarettes per day: 20.0 Years smoked: 30 Smoking pack-years: 30.00 Smoking status: Former smoker Tobacco type: cigarettes Alcohol intake: current Alcohol use details: 3 Beers to a case per week Substance use: never Substance use type: does not use Last use: 02/2021 Do You Feel Safe in your Home?: Yes Lack of Transportation: No Lack of Food: Never True Current Housing: I Have Housing Concerned About Future Housing: No Difficulty Paying Gas/Electric Bills: No Difficulty Paying for Meds: No Currently Unemployed: No Education: Trade/Vocational Certificate Difficulty w/ Childcare or Family Care: No Living arrangements: with family Occupation/Education: occupation Gender identity (if verbalized by the patient): Male Sexual Orientation (if Verbalized by the Patient): Straight or Heterosexual Spiritual care concerns: No Exam 2 Narrative: GENERAL: [Well-appearing, well-nourished, and in no acute distress.] HEAD: [Normocephalic, atraumatic.] EYES: [PERRLA and EOMI.] ENT: Nares clear, no rhinorrhea or epistaxis. Mucous membranes moist. NECK: Supple. CHEST: [Clear to auscultation. No respiratory distress.] HEART: [Regular rate and rhythm]. No murmur heard. [Normal peripheral pulses.] ABDOMEN: [Soft, nondistended], [nontender], [No rigidity or guarding] EXTREMITIES: Normal range of motion. [No edema.] SKIN: Warm, dry, no rash. NEURO: [No focal deficits]. Alert and oriented [x3.] PSYCH: [Normal mood and affect.] Course Vital Signs Vital signs: Vital Signs Temperature 36.4 C L 07/19/24 00:10 Pulse Rate 63 07/19/24 00:10 Respiratory Rate 16 07/19/24 00:10 Blood Pressure 134/89 07/19/24 00:10 Pulse Oximetry 97 07/19/24 00:10 Oxygen Delivery Room Air 07/19/24 00:10 Temperature 36.4 C L 07/19/24 00:10 Pulse Rate 61 07/19/24 05:48 Respiratory Rate 18 07/19/24 05:48 Blood Pressure 132/86 07/19/24 05:48 Pulse Oximetry 100 07/19/24 05:48 Oxygen Delivery Room Air 07/19/24 03:14 MDM - Chest Pain MDM Narrative Medical decision making narrative: 58-year-old male with history of cardiac disease with coronary stents. Patient presents to the emergency department chief complaint of left-sided chest pain that radiates towards his left arm. States that he took a nitroglycerin that did not help and made him feel weird. Describes the pain is constant. History of MN with [address] Brooks from Cardiology. He is not any acute distress, has normal vital signs. No present chest pain. No hypoxia, tachycardia, fever, tachypnea. Normal blood pressure. Suspicion presently is for musculoskeletal chest pain, anxiety, ACS, pneumothorax, pneumonia. Low suspicion thromboembolic disease. No recent surgeries or risk factors such as DVT. He was otherwise in his normal state of health without any recent hospitalizations or surgeries. CBC, CMP, troponin, EKG, chest x-ray, delta troponin ordered. Patient placed on personnel monitor and pulse oximetry. Workup shows no leukocytosis or significant anemia. Normal platelet count. Normal coagulation panel. Normal LFTs, normal electrolytes, normal renal function. Delta troponin and initial troponin are negative. Negative lipase. Chest x-ray per my interpretation shows no pneumothorax or consolidation. No pleural effusions. Overall unremarkable chest x-ray. EKG shows sinus rhythm. Patient re-evaluated without any acute concerns. He can be safely discharged home with outpatient follow-up with his loan and credit manager for further risk stratification. Patient was given return precautions and safely discharged. Medical Records Data Attestation: I reviewed the patient's medical records. Lab Data Attestation: I reviewed the patient's lab results. 07/19/24 00:37 07/19/24 00:37 Labs: Lab Results 07/19/24 07/19/24 Range/Units 00:37 03:24 WBC 6.2 (4.5-10.0) K/mm3 RBC 4.49 L (4.6-6.20) M/mm3 Hgb 13.7 L (14.0-18.0) g/dL Hct 42.1 (42.0-52.0) % MCV 93.8 (80-100) fl MCH 30.5 (26-34) pg MCHC 32.5 (32-36) g/dl RDW 13.9 (11.5-14.5) % Plt Count 255 (150-375) k/mm3 MPV 9.6 (7.4-10.4) fl Immature Gran % (Auto) 0.2 (0-0.5) % Neut % (Auto) 55.4 (45.5-73.1) % Lymph % (Auto) 28.7 (18.3-44.2) % [place] % (Auto) 13.3 H (2.6-8.5) % Eos % (Auto) 1.9 (0-4.4) % Baso % (Auto) 0.5 (0.2-1.2) % Lymph # (Auto) 1.79 (0.9-3.2) K/mm3 [place] # (Auto) 0.8 H (0.1-0.6) K/mm3 Eos # (Auto) 0.1 (0-0.3) K/mm3 Baso # (Auto) 0.0 (0.0-0.1) K/mm3 Abs Immat Gran (auto) 0.01 (0.00-0.031) K/mm3 Absolute Neuts (auto) 3.5 (1.3-6.7) K/mm3 Absolute Nucleated RBC 0.000 (0.0-0.012) K/mm3 Nucleated RBC % 0.0 (0.0-0.2) % PT 12.6 (11.1-14.7) Seconds INR 0.9 APTT 30.7 (22.3-36.8) Seconds Sodium 139 (137-145) mmol/L Potassium 3.6 (3.4-5.0) mmol/L Chloride 103 (98-107) mmol/L Carbon Dioxide 27 (22-30) mmol/L Anion Gap 9 (4-12) mmol/L BUN 11 (9-20) mg/dL Creatinine 0.90 (0.7-1.3) mg/dL Estim Creat Clear Calc 92 ml/min Estimated GFR > 60 (59 - ) Glucose 115 H (65-110) mg/dL Calcium 10.2 (8.4-10.2) mg/dL Total Bilirubin 0.5 (0.2-1.3) mg/dL AST 25 (17-59) U/L ALT 25 (6-50) U/L Alkaline Phosphatase 49 (38-126) U/L Troponin I < 0.012 < 0.012 (0.000-0.034) ng/mL Total Protein 8.0 (6.3-8.2) g/dL Albumin 4.6 (3.5-5.1) g/dL Lipase 122 (23-300) U/L Imaging Data Attestation: I personally reviewed and interpreted this imaging study as follows: My impression: No pneumothorax, pneumonia or consolidation. ECG Data EKG #1: Attestation: I personally reviewed and interpreted this ECG as follows: ECG completion date: 07/19/24 ECG completion time: 00:32 Prior ECG tracings: not available for review Interpretation: No ST segment elevations, depressions. QTC 398. QRS 110. ID interval 168. No ST segment concerns. No previous EKG for comparison. Final interpretation normal sinus rhythm. Discharge Plan Discharge Clinical Impression: Chest pain Patient Disposition: Home Condition: Stable Instructions: Antibiotic Form, Chest Pain (ED) Additional Instructions: Your cardiac enzymes are negative and undetectable. Follow-up with your regular primary care provider and loan and credit manager for further evaluation on outpatient basis. Return with any new or worsening concerns at any time. Patient Language: Bolivian Prescriptions: No Action Phazyme 500 mg capsule 500 mg PO DAILY amlodipine 2.5 mg tablet PO DAILY atorvastatin 40 mg tablet PO DAILY dicyclomine 10 mg capsule 10 mg PO TID Qty: 60 2RF aspirin 81 mg tablet,delayed release (DR/EC) 81 mg PO DAILY guanfacine 1 mg tablet 1 mg PO DAILY losartan 100 mg tablet 100 mg PO DAILY acetaminophen [Tylenol] 325 mg Capsule 650 mg PO Q4-6H PRN (Reason: Pain) atorvastatin 80 mg tablet 40 mg PO HS clopidogrel 75 mg tablet 75 mg PO DAILY Patient Comments: carvedilol 3.125 mg tablet 3.125 mg PO BID nitroglycerin 0.4 mg Tablet, Sublingual 0.4 mg SUBLINGUAL Q5-15M PRN (Reason: Angina) pantoprazole 40 mg tablet,delayed release (DR/EC) 40 mg PO DAILY Qty: 90 1RF cholecalciferol (vitamin D3) 1,250 mcg (50,000 unit) tablet 1,250 mcg PO WEEKLY Qty: 14 1RF Follow-up/Referrals: Nilo De La Garza MD [Primary Care Provider] - Time of Disposition: 05:43
[2024-07-19 05:48] VITALS: BP 132/86; PULSE 61; RESP 18; O2SAT 100
== END 2024-07-19 05:49 | disposition home or self-care (01) ==
PROVIDERS: Emergency Medicine; Emergency Provider Student in an Organized Health Care Education/Training Program; PCP Family Medicine
DX: R07.9 Chest pain, unspecified (principal); E11.9 Type 2 diabetes mellitus without complications; J44.9 Chronic obstructive pulmonary disease, unspecified; M19.90 Unspecified osteoarthritis, unspecified site; K21.9 Gastro-esophageal reflux disease without esophagitis; E78.5 Hyperlipidemia, unspecified; I10 Essential (primary) hypertension; I25.10 Atherosclerotic heart disease of native coronary artery without angina pectoris
CPT/HCPCS: 36415; 71046; 80053; 83690; 84484; 85025; 85610; 85730; 93005; 99284

== ENCOUNTER 2024-10-20 01:25 | Day surgery (SDC) | payer BC, SELFPAY ==
[2024-10-06 15:39] VITALS: BMI 31.6
--- NOTE | 2024-10-06 15:49 | PC.NURSE ---
Spoke with _patient_ regarding medication plavix. _Patient_verbalizes understanding that the last dose is to be taken on _10/15/24__ and the Endoscopist will instruct them when to restart after the procedure.
--- OUTSIDE RECORDS SUMMARY | 2024-10-20 01:27 | XMS_ITS | Encounter Summary ---
Author Organization [facility] Healthcare Address [address] [place] [address] Care Team Providers Care Kingsbury Machine Operator Name Role Phone Ashok Matute MD Primary Care Provider + [phone] Ashok Matute MD Primary Care Provider + [phone] Jaimee Abrams MD Primary Care Provide r Debbi Ch MD Primary Care Provider + Nilo De La Garza MD Primary Care Provider [phone] Encounter Details Date Type Department Care Team (Late st Contact Info) Description 08/20/2017 Orders Only [facility] Health Information Management [address] [place] [id number] Scanning, Provider Social History Tobacco Use Types Packs/Day Years Used Date Smoking Tobacco: Never Assessed Sex and Gender Information Value Date Recorded Sex Assigned at Not on file Legal Sex Male 8:46 AM CDT Gender Identity Not on file Sexual Orientation Not on file documented as of this encounter Plan of Treatment Not on file documented as of this encounter Procedures Procedure Name Priority Date/Time Associated Diagnosis Comments CARDIOLOGY DOCUMENT SCAN 08/20/2017 documented in this encounter Results * Cardiology Document Scan (08/20/2017) Anatomical Region Laterality Modality Other us Provider Scanning CV CARDIAC SERVICES PROCEDURES Edited Result - Final documented in this encounter Visit Diagnoses Not on filedocumented in this encounter Care Teams Kingsbury Machine Operator Relationship Specialty Start Date End Date Ashok Matute MD PCP - General Internal Medicine 08/21/17 12/23/20 Ashok Matute MD PCP - General Internal Medicine 03/23/17 08/20/17 Jaimee Abrams MD [address] [facility] [address] [place] [address] PCP - General Internal Medicine 12/24/20 04/13/22 Debbi Ch MD [address] [place], [place] [id number] PCP - General Family Medicine 04/14/22 11/08/23 Nilo De La Garza MD [address] [place], [place] [id number] PCP - General Family Practice 11/09/23 documented as of this encounter
--- OUTSIDE RECORDS SUMMARY | 2024-10-20 01:27 | XMS_ITS | Clinical Summary ---
Author Organization [facility] Address [address] [place] [address] Care Team Providers Care Broaching Machine Set Up Operator Name Role Phone Chelsie Abrams MD Primary Care Provider Source Comments [facility],non-owned Affiliates and Associated Physician Practices is amultiple site organization consisting of ambulatory clinics and hospital sitesin [place], [place], [place] and [place]. This disclosure is being madepursuant to the Care Everywhere program and may not contain all information available regarding this patient. Last updated [facility] Allergies No known active allergies Medications * [...] on file Legal Sex Male 7:08 PM GENERATOR MAN Gender Identity Not on file Sexual Orientation [...] 2:23 PM CDT Height 177.8 cm (5' 10) 12/12/2020 2:23 PM CDT Body Mass Index [...] FOR DIABETES 12/12/2020 COVID-19 VACCINE (3 - 2023- season) 2023 06/16/2020, 05/19/2020 DEPRESSION SCREENING 03/23/2024 INFLUENZA VACCINE (#1) 2024 , 02/08/2019, 12/16/2017, Additional history exists HIB VACCINE [...] patient's age to complete this topic Insurance [facility] SELF PAY NO INSURANCE Member Subscriber Plan / Payer (Ef fective for All Dates) Name:Michael Davis Member ID:Not on file Relation to Subscriber:Not on file Name:MICHAEL DAVIS Subscriber ID:Not on file (Home) Address: [address] [place] [id number] Payer ID:Not on file Group ID:Not on file Type:Self Pay Address: [employer], [place] Care Teams Broaching Machine Set Up Operator Relationship Specialty Start Date End Date Chelsie Abrams MD [address] [id number] PCP - General 12/12/20
--- OUTSIDE RECORDS SUMMARY | 2024-10-20 01:27 | XMS_ITS | Continuity of Care Document ---
Author Organization [facility] Address [address] [place] [address] Phone Care Team Providers Care Tactical/Mobile Watch Officer Name Role Phone Tenorio OD, Emery Unavailable Unavailable Advance Directives Directive Yes / No Effective Date File Name No Information Encounters Encounter Description Practice Location Reason(s) For Visit Diagnoses Date Provider Providers Copied on Encounter [facility], [address], [place], [place], [id number], [place] tel:[phone] [facility] No Information [address] Tenorio OD Emery. [address] , [address], [place], [address], [place]. tel:[phone] Family History Family Member Type Diagnosis Age At Onset No Information Payers Payer name Insurance type Covered constitution party ID Authoriza tion(s) [facility] [id number] Social History Type Description Quantity Date Captured [...]
--- OUTSIDE RECORDS SUMMARY | 2024-10-20 01:27 | XMS_ITS | Clinical Summary ---
Author Organization [facility] [address] Address [address] [place] [address] Care Team Providers Care Jackscrew Man Name Role Phone Nilo De La Garza MD Primary Care Provider [phone] Allergies No known active allergies Medications atorvastatin [...] 75 mg tabletIndicatio ns:Coronary artery disease involving karuk coronary artery of karuk heart without angina pectoris TAKE 1 TABLET [...] and he quit doing that since the [place]. Nifedipine was stopped. Coronary artery disease of n ative artery of karuk heart with stable angina pectoris 09/14/2017 Assessment [...] and has smoked 10 cigarettes since his [place] twenty-five days ago. I advised patient to [...] (01/27/2022): Added automatically from request for surgery [id number] Surgical History Surgery Date Site/Laterality Comments CORONARY ANGIOPLASTY 2 stents CHOLECYSTECTOMY 12/21/2021 - 01/20/2022 THUMB SURGERY Medical History Medical History Date Comments Hypertension Hyperlipidemia Coronary artery disease [place] (myocardial infarction) (HCC) 2017 GERD (gastroesophageal reflux disease) Family History Medical [...] Comments Blood Pressure 150/90 05/23/2024 8:08 AM SUPPLY CHAIN DIRECTOR Pulse 84 05/23/2024 8:08 AM SUPPLY CHAIN DIRECTOR Temperature 36.7 C (98.1 F) 03/04/2022 8:46 AM SUPPLY CHAIN DIRECTOR Respiratory Rate 16 03/04/2022 8:46 AM SUPPLY CHAIN DIRECTOR Oxygen Saturation 97% 05/23/2024 8:08 AM SUPPLY CHAIN DIRECTOR Inhaled Oxygen Concentration - - Weight 103.5 kg (228 lb 3.2 oz) 05/23/2024 8:08 AM SUPPLY CHAIN DIRECTOR Height 175.3 cm (5' 9) 05/23/2024 8:08 AM SUPPLY CHAIN DIRECTOR Body Mass Index 33.7 05/23/2024 8:08 AM SUPPLY CHAIN DIRECTOR Plan of Treatment Health Maintenance Due Date Last Done Comments Colon Cancer Screening-Colonoscopy 1964 Depression Screening 1964 Hepatitis C Screening 1964 Prostate Cancer Screening-PSA 1964 Hepatitis B Screening 1982 Regular Well Visit/Exam 18-64 1982 Pneumococcal vaccine <65 (2 of 2 - PPSV23) 04/01/2021 02/04/2021 Zoster Vaccine (2 of 2) 05/30/2022 04/04/2022 Influenza Vaccine (#1) 2024 , 01/26/2021, 12/28/2019, Additional history exists DTaP/Tdap/Td Vaccine (3 - Td or Tdap) 08/19/2028 08/19/2018, 12/16/2017 Medical Devices Implanted Type Area Journeyman Pipe Fitter Device Identifier Shelf Expiration Date Model / Serial / Lot [employer]camp Synergy Xd Monorail 2.5mm 20mm 144cm Delivery System 1 Access [id number] - [id number] Implanted:Qty: 1 on 03/04/2022 by Jeferson Brooks MD at [facility] [employer] 06/20/2023 [id number] / / [id number] octoScope Angio-Seal Vip 6fr Closere Device [id number] - [id number] Implanted:Qty: 1 on 03/04/2022 by Jeferson Brooks MD at [facility] [employer] 12/20/2022 [id number] / / [id number] Insurance [facility] ANTHEM ACCESS CHOICE [facility] [place] Advance Directives For more information, please contact: [phone] * Full Code (Latest Code Status on File) Date Activated Date Inactivated Comments 03/04/2022 1:29 PM 03/04/2022 7:57 PM Care Teams Jackscrew Man Relationship Specialty Start Date End Date Nilo De La Garza MD PCP - General Family Practice 11/09/23
--- OUTSIDE RECORDS SUMMARY | 2024-10-20 01:27 | XMS_ITS | Referral Summary ---
Author Organization [facility] [address] Address [address] [place] [address] Care Team Providers Care Image Assembler Name Role Phone Nilo De La Garza MD Primary Care Provider [phone] Allergies No known active allergies Medications atorvastatin [...] 75 mg tabletIndicatio ns:Coronary artery disease involving mohegan coronary artery of mohegan heart without angina pectoris TAKE 1 TABLET [...] and he quit doing that since the [place]. Nifedipine was stopped. Coronary artery disease of n ative artery of mohegan heart with stable angina pectoris 09/14/2017 Assessment [...] and has smoked 10 cigarettes since his [place] twenty-five days ago. I advised patient to [...] (01/27/2022): Added automatically from request for surgery [id number] Social History Tobacco Use Types Packs/Day Years [...] Comments Blood Pressure 150/90 05/23/2024 8:08 AM MANAGER UTILIZATION Pulse 84 05/23/2024 8:08 AM MANAGER UTILIZATION Temperature 36.7 C (98.1 F) 03/04/2022 8:46 AM MANAGER UTILIZATION Respiratory Rate 16 03/04/2022 8:46 AM MANAGER UTILIZATION Oxygen Saturation 97% 05/23/2024 8:08 AM MANAGER UTILIZATION Inhaled Oxygen Concentration - - Weight 103.5 kg (228 lb 3.2 oz) 05/23/2024 8:08 AM MANAGER UTILIZATION Height 175.3 cm (5' 9) 05/23/2024 8:08 AM MANAGER UTILIZATION Body Mass Index 33.7 05/23/2024 8:08 AM MANAGER UTILIZATION Plan of Treatment Not on file Medical Devices Implanted Type Area Skydiving Instructor Device Identifier Shelf Expiration Date Model / Serial / Lot [employer]Werx Devyn Synergy Xd Monorail 2.5mm 20mm 144cm Delivery System 1 Access [id number] - [id number] Implanted:Qty: 1 on 03/04/2022 by Jeferson Brooks MD at [facility] 06/20/2023 [id number] / / [id number] [facility] [employer] [facility] Angio-Seal Vip 6fr Closere Device [id number] - [id number] Implanted:Qty: 1 on 03/04/2022 by Jeferson Brooks MD at [facility] [employer] [facility] 12/20/2022 [id number] / / [id number] Insurance [employer] [facility] [employer] [place] Advance Directives For more information, please contact: [phone] * Full Code (Latest Code Status on File) Date Activated Date Inactivated Comments 03/04/2022 1:29 PM 03/04/2022 7:57 PM Care Teams Image Assembler Relationship Specialty Start Date End Date Nilo De La Garza MD PCP - General Family Practice 11/09/23
[2024-10-20 12:20] VITALS: BP 131/86; PULSE 62; RESP 18; TEMP 36.1; O2SAT 99
[2024-10-20] MEDS: LACTATED RINGERS 1,000 ML 150 ML IV CONT (12:30)
--- NOTE | 2024-10-20 12:32 | WPDANESEPPF ---
Anes - Initial Pre Proc Eval Procedure: Operation Date: 10/20/24 13:15 Proposed Procedures p Esophagogastroduodenoscopy - Ferdinand Stuart MD Date/Time: 10/20/24 12:32 Surgeon: Ferdinand Stuart MD Pre Op Diagnosis: Gastro-esophageal reflux disease without esophagit Patient Data Age: 58 Gender: M Height: 1.78 m Weight: 98.2 kg Last Vital Signs Temp 36.1 C L 10/20/24 12:20 Pulse 62 10/20/24 12:20 Resp 18 10/20/24 12:20 BP 131/86 10/20/24 12:20 Pulse Ox 99 10/20/24 12:20 O2 Del Method Room Air 10/20/24 12:20 Allergies Allergy/AdvReac Type Severity Reaction Status Date / Time No Known Allergies Allergy Verified 10/20/24 12:18 Home Medications ?Medication ?Instructions ?Recorded ?Confirmed ?Type atorvastatin 80 mg tablet 40 mg PO HS 05/01/21 10/06/24 History carvedilol 3.125 mg tablet 3.125 mg PO BID 05/01/21 10/20/24 History clopidogrel 75 mg tablet 75 mg PO DAILY 05/01/21 10/20/24 History nitroglycerin 0.4 mg sublingual 0.4 mg sublingual Q5-15M PRN Angina 05/01/21 10/06/24 History tablet aspirin 81 mg tablet,delayed 81 mg PO DAILY 04/30/22 10/06/24 History release simethicone 500 mg capsule 500 mg PO DAILY 11/25/23 10/06/24 History (Phazyme) guanfacine 1 mg tablet 1 mg PO DAILY 12/23/23 10/06/24 History losartan 100 mg tablet 100 mg PO DAILY 12/23/23 10/06/24 History acetaminophen 325 mg capsule 650 mg PO Q4-6H PRN Pain 01/05/24 10/06/24 History (Tylenol) amlodipine 2.5 mg tablet 2.5 mg PO DAILY 06/01/24 10/06/24 History atorvastatin 40 mg tablet 40 mg PO DAILY 06/01/24 10/06/24 History cholecalciferol (vitamin D3) 1,250 1,250 mcg PO WEEKLY #14 tabs 06/24/24 10/06/24 Rx mcg (50,000 unit) tablet pantoprazole 40 mg tablet,delayed 40 mg PO DAILY #90 tabs 07/25/24 10/06/24 Rx release metoclopramide HCl 10 mg tablet 10 mg PO Q6H PRN nausea and 07/28/24 10/06/24 Rx (Reglan) vomiting #120 tabs dicyclomine 10 mg capsule 10 mg PO TID PRN abdominal pain 10/06/24 10/06/24 History dicyclomine 20 mg tablet 20 mg PO Q6H PRN abdominal pain 10/06/24 10/06/24 History finasteride 5 mg tablet 5 mg PO DAILY 10/06/24 10/06/24 History naproxen sodium 220 mg tablet 220 mg PO Q12H PRN pain 10/06/24 10/06/24 History ([place]) Patient hx anesthesia problems: none Family hx anesthesia problems: none Results Review: All pre-operative results and documents have been reviewed as part of the pre-operative evaluation. [facility] Past Medical History Medical History IBS (irritable bowel syndrome) Heart disease Diabetes COPD (chronic obstructive pulmonary disease) Arthritis Nausea Nonerosive esophageal reflux disease Left groin pain Hyperlipidemia HTN (hypertension) CAD (coronary artery disease) Overweight GERD (gastroesophageal reflux disease) Surgical History Surgical History Hx laparoscopic cholecystectomy 01/09/2022 - laparoscopic cholecystectomy with near infrared indocyanine green fluorescent cholangiography History of coronary artery stent placement x2, 2017 Family History Family History Mother Diabetes mellitus Hypertension Cerebrovascular accident Father Diabetes mellitus Social History Social History Smoking packs per day: 1 Smoking cigarettes per day: 20.0 Years smoked: 30 Smoking pack-years: 30.00 Smoking status: Former smoker Tobacco type: cigarettes Alcohol intake: current Alcohol use details: 3 Beers to a case per week Substance use: never Substance use type: does not use Last use: 02/2021 Do You Feel Safe in your Home?: Yes Lack of Transportation: No Lack of Food: Never True Current Housing: I Have Housing Concerned About Future Housing: No Difficulty Paying Gas/Electric Bills: No Difficulty Paying for Meds: No Currently Unemployed: No Education: Trade/Vocational Certificate Difficulty w/ Childcare or Family Care: No Living arrangements: with family Occupation/Education: occupation Gender identity (if verbalized by the patient): Male Sexual Orientation (if Verbalized by the Patient): Straight or Heterosexual Spiritual care concerns: No Anes - Eval Final PreProcedure Day of Procedure 10/20/24 12:32 Patient weight: obese Heart: regular rate and rhythm Lungs: decreased breath sounds Airway: Mallampati scale class II Neurological: alert and oriented Last oral intake: >/= 8 hours ASA classification: III Emergent: no Anesthetic plan: proceed Anesthesia type and monitoring: general GIVS and standard monitoring Results Review: All pre-operative results and documents have been reviewed as part of the pre-operative evaluation. Informed Consent: The patient's anesthetic plan and its attendant risks and benefits were discussed with the patient/family/POA. Questions were solicited and answers provided to the satisfaction of the patient/family/POA.
--- NOTE | 2024-10-20 12:38 | PM.HPGS ---
History of Present Illness History of Present Illness Consent: Risks, benefits, and alternatives have been discussed and questions answered. Patient agrees to proceed with procedure. Chief complaint: Gastro-esophageal reflux disease without esophagit Narrative: Michael Ledbetter is a 58 year old male with abdominal discomfort on ppi and bentyl, had egd 2021 with normal duodenal bx, h/o cholecystectomy Review of Systems Review of Systems: All systems reviewed & are unremarkable except as noted in HPI and below PMFSH Past Medical History Medical History IBS (irritable bowel syndrome) Heart disease Diabetes COPD (chronic obstructive pulmonary disease) Arthritis Nausea Nonerosive esophageal reflux disease Left groin pain Hyperlipidemia HTN (hypertension) CAD (coronary artery disease) Overweight GERD (gastroesophageal reflux disease) Surgical History Surgical History Hx laparoscopic cholecystectomy 01/09/2022 - laparoscopic cholecystectomy with near infrared indocyanine green fluorescent cholangiography History of coronary artery stent placement x2, 2017 Family History Family History Mother Diabetes mellitus Hypertension Cerebrovascular accident Father Diabetes mellitus Social History Social History Smoking packs per day: 1 Smoking cigarettes per day: 20.0 Years smoked: 30 Smoking pack-years: 30.00 Smoking status: Former smoker Tobacco type: cigarettes Alcohol intake: current Alcohol use details: 3 Beers to a case per week Substance use: never Substance use type: does not use Last use: 02/2021 Do You Feel Safe in your Home?: Yes Lack of Transportation: No Lack of Food: Never True Current Housing: I Have Housing Concerned About Future Housing: No Difficulty Paying Gas/Electric Bills: No Difficulty Paying for Meds: No Currently Unemployed: No Education: Trade/Vocational Certificate Difficulty w/ Childcare or Family Care: No Living arrangements: with family Occupation/Education: occupation Gender identity (if verbalized by the patient): Male Sexual Orientation (if Verbalized by the Patient): Straight or Heterosexual Spiritual care concerns: No Meds Home Medications and Allergies Home Medications ?Medication ?Instructions ?Recorded ?Confirmed ?Type atorvastatin 80 mg tablet 40 mg PO HS 05/01/21 10/06/24 History carvedilol 3.125 mg tablet 3.125 mg PO BID 05/01/21 10/20/24 History clopidogrel 75 mg tablet 75 mg PO DAILY 05/01/21 10/20/24 History nitroglycerin 0.4 mg sublingual 0.4 mg sublingual Q5-15M PRN Angina 05/01/21 10/06/24 History tablet aspirin 81 mg tablet,delayed 81 mg PO DAILY 04/30/22 10/06/24 History release simethicone 500 mg capsule 500 mg PO DAILY 11/25/23 10/06/24 History (Phazyme) guanfacine 1 mg tablet 1 mg PO DAILY 12/23/23 10/06/24 History losartan 100 mg tablet 100 mg PO DAILY 12/23/23 10/06/24 History acetaminophen 325 mg capsule 650 mg PO Q4-6H PRN Pain 01/05/24 10/06/24 History (Tylenol) amlodipine 2.5 mg tablet 2.5 mg PO DAILY 06/01/24 10/06/24 History atorvastatin 40 mg tablet 40 mg PO DAILY 06/01/24 10/06/24 History cholecalciferol (vitamin D3) 1,250 1,250 mcg PO WEEKLY #14 tabs 06/24/24 10/06/24 Rx mcg (50,000 unit) tablet pantoprazole 40 mg tablet,delayed 40 mg PO DAILY #90 tabs 07/25/24 10/06/24 Rx release metoclopramide HCl 10 mg tablet 10 mg PO Q6H PRN nausea and 07/28/24 10/06/24 Rx (Reglan) vomiting #120 tabs dicyclomine 10 mg capsule 10 mg PO TID PRN abdominal pain 10/06/24 10/06/24 History dicyclomine 20 mg tablet 20 mg PO Q6H PRN abdominal pain 10/06/24 10/06/24 History finasteride 5 mg tablet 5 mg PO DAILY 10/06/24 10/06/24 History naproxen sodium 220 mg tablet 220 mg PO Q12H PRN pain 10/06/24 10/06/24 History (Aleve) Allergies Allergy/AdvReac Type Severity Reaction Status Date / Time No Known Allergies Allergy Verified 10/20/24 12:18 Vital Signs Vital Signs - 24 hr 10/20/24 12:20 Temperature 97 F L Pulse Rate 62 Respiratory Rate 18 Blood Pressure 131/86 Pulse Oximetry 99 Oxygen Delivery Room Air Exam Const: General: comfortable and no acute distress HENMT: Face/Nose/Sinus: Normal nares present Eyes: General: appearance normal, both eyes and all related structures Neck: Neck: no JVD Resp: Auscultation: clear to auscultation bilaterally Cardio: Rate: regular rate Rhythm: regular rhythm GI: Inspection: non-distended GI Palp: Yes Soft to palpation Skin: General skin exam: normal color Neuro: General: gait normal Speech: normal speech Extrem: General: normal to inspection Psych: Mental Status: mental status grossly normal Assessment and Plan Assessment and plan (1) Abdominal pain: Code(s): R10.9 - Unspecified abdominal pain Status: Acute Assessment and Plan: egd with bx
[2024-10-20] MEDS: BENZOCAINE (*SP) 60 ML SPRAY CAN (HURRICAINE) 1 SPRAY MUCOUS MEM (12:42)
--- NOTE | 2024-10-20 12:45 | S_PTH ---
PATIENT: Michael Ledbetter LOC: MELISSA Ardon#:[id number] AGE/SX: 58/M ROOM: RE10/20/[address]: Ferdinand Stuart MD : 1965 BED: DIS: 10/20/2024 SPEC #: [id number] RECD: 10/20/24 13:16 STATUS: JOHN RE #: [id number] SALLIE: 10/20/24 12:[address]: Ferdinand Stuart DEPT: [facility] Surgical RECD BY: Shannon Zacarias ENTERED: 10/20/24 13:16 SP TYPE: Surgical OTHR DR: Nilo De La Garza MD Tissues: A - Gastric Biopsy Procedures: Hematoxylin and Eosin Stain Gross and Microscopic Level 4
[2024-10-20 12:51] VITALS: BP 103/59; PULSE 63; RESP 21; O2SAT 100
[2024-10-20 13:01] VITALS: BP 114/56; PULSE 60; RESP 20; O2SAT 97
[2024-10-20 13:11] VITALS: BP 119/62; PULSE 61; RESP 19; O2SAT 98
== END 2024-10-20 13:21 | disposition home or self-care (01) ==
PROVIDERS: PCP Family Medicine; Visit Provider Internal Medicine Gastroenterology
PROC: 0DJ08ZZ Inspection of Upper Intestinal Tract, Via Natural or Artificial Opening Endoscopic (ICD-10-PCS; CPT 43239; principal; 2024-10-20 13:15)
DX: R10.13 Epigastric pain (principal); Z87.891 Personal history of nicotine dependence; E66.9 Obesity, unspecified; Z68.31 Body mass index [BMI] 31.0-31.9, adult
CPT/HCPCS: 43239; 88305; J2003; J2704; J7120

== ENCOUNTER 2024-12-22 08:35 | Outpatient (CLI) | payer BC, SELFPAY ==
--- OUTSIDE RECORDS SUMMARY | 2001-05-05 06:30 | XMS_ITS | Continuity of Care Document ---
Author Organization [facility] Address [address] [place] [address] Phone Care Team Providers Care Repair Manager Name Role Phone Tenorio OD, Emery Unavailable Unavailable Advance Directives Directive Yes / No Effective Date File Name No Information Encounters Encounter Description Practice Location Reason(s) For Visit Diagnoses Date Provider Providers Copied on Encounter [facility], [address], [place], [place], [id number], [place] tel:[phone] [facility] [place] No Information 3-200 2 Tenorio OD Emery. [address] , [address], [place], [address], [place]. tel:[phone] Family History Family Member Type Diagnosis Age At Onset No Information Payers Payer name Insurance type Covered republican ID Authoriza tion(s) [facility] [id number] Social History Type Description Quantity Date Captured Comments Sex Male Smoking Status No Information Chief Complaint And Reason For Visit No Information Reason For Referral Reason For Referral No Information History Of Present Illness Encounter Date Complaint History Of Prese nt Illness No Information Functional Status Date Functional Assessmen t No Information Instructions Date Instruction Additional Infor mation No Information Assessments Type Assessment Date No Information Patient Care Teams Name Effective Dates (start - stop) Status Members No Information
--- NOTE | 2024-12-22 | EST_ITS ---
Patient Info Name: Michael Ledbetter Age: 59 years : 1965 Gender: Male Ht: 70 in Wt: 220 lbs BSA: 2.25 m2 HR: 57 bpm BP: 120 / 77 mmHg Exam Date: 12/22/2024 10:03 AM Patient Status: unknown Admit Date: 12/22/2024 Exam Type: CA stress carolee w NM A regadenoson stress test was performed. Staff Referring Physician: Jeferson Brooks MD Attending Provider: Jeferson Brooks MD Exercise Technologist: Adia Soto Exercise Physician: Steffen Chang Protocol: Lexiscan Stress ECG Details Stage: REST Duration (min): 0 min : 42 sec HR (bpm): 60 SBP (mmHg): 120 DBP (mmHg): 77 Stage: REST Duration (min): 1 min : 24 sec HR (bpm): 68 SBP (mmHg): 120 DBP (mmHg): 77 Stage: STAGE 1 Duration (min): 1 min : 0 sec HR (bpm): 95 SBP (mmHg): 139 DBP (mmHg): 71 Stage: RECOVERY Duration (min): 1 min : 0 sec HR (bpm): 93 SBP (mmHg): 139 DBP (mmHg): 71 Stage: RECOVERY Duration (min): 2 min : 0 sec HR (bpm): 82 SBP (mmHg): 139 DBP (mmHg): 71 Stage: RECOVERY Duration (min): 3 min : 0 sec HR (bpm): 78 SBP (mmHg): 122 DBP (mmHg): 72 Stage: RECOVERY Duration (min): 3 min : 14 sec HR (bpm): 80 SBP (mmHg): 122 DBP (mmHg): 72 Rest HR: 68 bpm Peak HR: 97 bpm Rest Sys BP: 120 mmHg Peak Sys BP: 139 mmHg Max Pred HR: 160 bpm % Max Pred HR: 61 % Target HR: 136 bpm Max RPP: 13,483 bpm*mmHg BP Response: Normal blood pressure response Termination Reason: Completed protocol Total Time: 1 min : 0 sec Rest Taylor BP: 77 mmHg Peak Taylor BP: 71 mmHg Total Dose: 0.4 mg Resting ECG Sinus rhythm with PVCs. Stress ECG No abnormal ST/T wave changes with exercise. Arrhythmias Frequent PVCs. Report Signatures
--- NOTE | ~2024-12-22 | NM_ITS ---
EXAMINATION: NM carolee stress w perfusion DATE: 12/22/2024 11:16 INDICATION: Coronary artery disease TECHNIQUE: Rest images were obtained following intravenous administration of 9 mCi Tc99m tetrofosmin (Myoview). The patient was infused intravenously with Lexiscan (Regadenoson). Then, 28.3 mCi Tc99m tetrofosmin (Myoview) was administered intravenously, and stress images were obtained. Data was reconst ructed into short axis and horizontal and vertical long axis SPECT images. Gated SPECT images were also obtained. COMPARISON: None. FINDINGS: There is no definite reversible or fixed perfusion abnormality to suggest ischemia or infarction. There is normal left ventricular chamber size, wall motion and ejection fraction. Left ventricular ejection fraction measures 59%. IMPRESSION: 1. Normal myocardial perfusion at rest and during stress. 2. Left ventricular ejection fraction measuring 59%. Reviewed, dictated and finalized at location A.
--- OUTSIDE RECORDS SUMMARY | 2024-12-22 08:50 | XMS_ITS | Clinical Summary ---
Author Organization [facility] Address [address] [place] [address] Care Team Providers Care Pilot Boat Operator Name Role Phone Chelsie Abrams MD Primary Care Provider Source Comments [facility],non-owned Affiliates and Associated Physician Practices is amultiple site organization consisting of ambulatory clinics and hospital sitesin [place], [place], [place] and [place]. This disclosure is being madepursuant to the Care Everywhere program and may not contain all information available regarding this patient. 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 Gender Identity Not on file Sexual Orientation [...] 11/03/1982 DTAP/TDAP/TD VACCINES (1 - Tdap) 11/08/1983 PNEUMOCOCCAL VACCINE 50+ (1 of 2 - PCV) 11/08/1983 ZOSTER VACCINE (1 of 2) 2014 SCREENING FOR DIABETES 12/12/2020 DEPRESSION SCREENING 03/23/2024 COVID-19 VACCINE (3 - 2024- season) 2024 06/16/2020, 05/19/2020 INFLUENZA VACCINE (#1) 2024 , 02/08/2019, 12/16/2017, Additional history exists Respiratory Syncytial Virus (RSV) Vaccine Pt: or over 60 yrs (1 - 1-dose 75+ series) 11/08/2039 HEPATITIS B VACCINE Aged Out No longe r eligible based on patient's age to complete this topic HIB VACCINE Aged Out No longer eligi [...] patient's age to complete this topic Insurance [facility] SELF PAY NO INSURANCE Member Subscriber Plan / Payer (Ef fective for All Dates) Name:Michael Davis Member ID:Not on file Relation to Subscriber:Not on file Name:MICHAEL DAVIS Subscriber ID:Not on file (Home) Address: [address] [place] [id number] Payer ID:Not on file Group ID:Not on file Type:Self Pay Address: [place], [place] Care Teams Pilot Boat Operator Relationship Specialty Start Date End Date Chelsie Abrams MD [address] [address] PCP - General 12/12/20
--- OUTSIDE RECORDS SUMMARY | 2024-12-22 08:50 | XMS_ITS | Clinical Summary ---
Author Organization [facility] [place] [address] Address [address] [place] [address] Care Team Providers Care Pearl Maker Name Role Phone Nilo De La Garza MD Primary Care Provider [phone] Allergies No known active allergies Medications atorvastatin calcium (ATORVASTATIN ORAL) Take 40 mg by mouth daily 0 Active nitroglycerin (NITROSTAT) 0.[address] 1 tablet (0.4 mg total) under the tongue every 5 (five) minutes as needed for chest pain 25 tablet [address] (PROTONIX) 40 mg EC tablet Take 1 tablet (40 mg total) by mouth daily 2 Active losartan (COZAAR) 100 mg tablet Take 1 tablet (100 mg total) by mouth daily Active clopidogreL (PLAVIX) 75 mg tabletIndicatio ns:Coronary artery disease involving nisqually coronary artery of nisqually heart without angina pectoris TAKE 1 TABLET BY MOUTH EVERY DAY 90 tablet 3 4 Active carvediloL (COREG) 3.125 mg tablet TAKE 1 TABLET BY MOUTH TWICE A DAY 180 tablet 2 5 Active amLODIPine (NORVASC) 2.5 mg tablet Take 1 tablet (2.5 mg total) by mouth daily 30 tablet 11 5 05/24/19 26 Active guanFACINE (TENEX) 1 mg tablet TAKE 1 TABLET BY MOUTH EVERY DAY NIGHTLY 90 tablet 1 5 Active dicyclomine (BENTYL) 20 mg tablet TAKE 1 TABLET BY MOUTH EVERY 6 HOURS NEEDED FOR ABDOMINAL PAIN Active aspirin 81 mg enteric coated tablet Take 1 tablet (81 mg total) by mouth daily 5 Active cholecalciferol (VITAMIN D-3) 50,000 unit capsule TAKE 1 CAPSULE BY MOUTH WEEKLY Active finasteride (PROSCAR) 5 mg tablet Take 1 tablet (5 mg total) by mouth daily Active Active Problems Problem Noted Date Diagnosed Date PVC (premature ventricular contraction) 12/06/19 Other fatigue 10/09/2017 Assessment & Plan (10/09/2017 10:22 AM CDT): Also patient complains of fatigability after his heart attack. His states that he used to smoke pack per day, drink 3 for cups of coffee every day, drink 2-10 beers every day and he quit doing that since the DC. Nifedipine was stopped. 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 I advised patient to [...] (01/27/2022): Added automatically from request for surgery [id number] Encounters Date Type Department Care Team Description 12/05/2024 8:30 AM CDT Office Visit [facility] [address] [place] [phone] Jeferson Brooks MD Coronary artery disease of nisqually artery of nisqually heart with stable angina pectoris (Primary Dx); Mixed hyperlipidemia; Essential hypertension; Tobacco abuse counseling; PVC (premature ventricular contraction) 12/05/[address] [facility] [address] [place] [phone] Jeferson Brooks MD from Last 3 Months Surgical History Surgery Date Site/Laterality Comments CORONARY ANGIOPLASTY 2 stents CHOLECYSTECTOMY 12/21/2021 - 01/20/2022 THUMB SURGERY Medical History Medical History Date Comments Hypertension Hyperlipidemia Coronary artery disease DC (myocardial infarction) ([facility]) 2017 GERD (gastroesophageal reflux disease) Family History [...] Sign Reading Time Taken Comments Blood Pressure 138/84 12/05/2024 8:22 AM CDT Pulse 83 12/05/2024 8:22 AM CDT Temperature 36.7 C (98.1 F) 03/04/2022 8:46 AM SURGICAL TECHNOLOGY INSTRUCTOR Respiratory Rate 16 03/04/2022 8:46 AM SURGICAL TECHNOLOGY INSTRUCTOR Oxygen Saturation 97% 12/05/2024 8:22 AM CDT Inhaled Oxygen Concentration - - Weight 100.2 kg (221 lb) 12/05/2024 8:22 AM CDT Height 175.3 cm (5' 9) 12/05/2024 8:22 AM CDT Body Mass Index 32.64 12/05/2024 8:22 AM CDT Plan of Treatment Health Maintenance Due Date Last Done Comments Colon Cancer Screening-Colonoscopy 1965 Depression Screening 1965 Hepatitis C Screening 1965 Prostate Cancer Screening-PSA 1965 Hepatitis B Screening 1982 Regular Well Visit/Exam 18-64 1982 Pneumococcal vaccine <65 (2 of 2 - PPSV23, PCV20, or PCV21) 04/01/2021 02/04/2021 Influenza Vaccine (#1) 2024 , 01/01/2022, 01/26/2021, Additional history exists DTaP/Tdap/Td Vaccine (3 - Td or Tdap) 08/19/2028 08/19/2018, 12/16/2017 Zoster Vaccine Completed 04/04/2022, 02/04/2021 Medical Devices Implanted Type Area Flatlock Sewing Machine Operator Device Identifier Shelf Expiration Date Model / Serial / Lot [employer] Synergy Xd Monorail 2.5mm 20mm 144cm Delivery System 1 Access [id number] - [id number] Implanted:Qty: 1 on 03/04/2022 by Jeferson Brooks MD at [facility] 06/20/2023 [id number] / / [id number] [facility] Angio-Seal Vip 6fr Closere Device [id number] - [id number] Implanted:Qty: 1 on 03/04/2022 [facility] 12/20/2022 [id number] / / [id number] Procedures Procedure Name Priority Date/Time Associated Diagnosis Comments ELECTROCARDIOGRAM REPORT Routine 025 3:28 PM CDT Coronary artery disease of nisqu[place] artery of [place]qu[place] heart with stable angina pectoris from Last 3 Months Results * Electrocardiogram Report (12/05/2024 3:28 PM CDT) Jeferson Brooks MD ECG ORDERABLES Rianna l Result from Last 3 Months Insurance [place] [employer] [facility] Advance Directives For more information, please contact: [phone] * Full Code (Latest Code Status on File) Date Activated Date Inactivated Comments 03/04/2022 1:29 PM 03/04/2022 7:57 PM Care Teams Pearl Maker Relationship Specialty Start Date End Date Nilo De La Garza MD PCP - General Family Practice 11/09/23
--- OUTSIDE RECORDS SUMMARY | 2024-12-22 08:50 | XMS_ITS | Encounter Summary ---
Author Organization [facility] Address [address] [place] [address] Care Team Providers Care Puzzle Assembler Name Role Phone Ashok Matute MD Primary Care Provider + [phone] Ashok Mattue MD Primary Care Provider [phone] Jaimee Abrams MD Primary Care Provide r Debbi Ch MD Primary Care Provider + Nilo De La Garza MD Primary Care Provider [phone] Encounter Details Date Type Department Care Team (Late st Contact Info) Description 08/20/2017 Orders Only [facility] Health Information Management [address] [place] [id number] Scanning, Provider Social History Tobacco Use [...] on filedocumented in this encounter Care Teams Puzzle Assembler Relationship Specialty Start Date End Date Ashok Matute MD PCP - General Internal Medicine 08/21/17 12/23/20 Ashok Matute MD PCP - General Internal Medicine 03/23/17 08/20/17 Jaimee Abrams MD [address] [facility] [address] [place] [address] PCP - General Internal Medicine 12/24/20 04/13/22 Debbi Ch MD [address] [place], [place] [id number] PCP - General Family Medicine 04/14/22 11/08/23 Nilo De La Garza MD [address] [place], [place] [id number] PCP - General Family Practice 11/09/23 documented as of this encounter
--- OUTSIDE RECORDS SUMMARY | 2024-12-22 08:51 | XMS_ITS | Data Portability ---
Author Organization [facility] [place], Main Office Address [address] [place] [address] Assessment No assessment recorded. Plan of Treatment Reminders Order Date Submit Date Provider Last Modified By Organization Details Last Modified Time Details Appointments None recorded. Lab HbA1c (hemoglobin A1c), blood 2023 024 [email or web address] Not available 4 09:39:59 BMP, serum or plasma 2023 024 [email or web address] Not available 4 11:38:06 lipid panel, serum [...] *Please call pt to schedule* 2023 024 [facility] ([facility]), [address], [place], [address], 4 08:37:19 Medication Orders prednisone 20 mg tablet 2022 023 [email or web address] [id number], [address], [place], [address], 3 09:29:10 famotidine 40 mg tablet 2022 023 [email or web address] [id number], [address], [place], [address], 3 08:16:35 Patient TargetsNo targets recorded. Patient InstructionsNo instructions recorded. Reason for Referral None Reported. Results Created Date Observation Date Name Description Value Unit Range Abnormal Flag Note LastModifiedBy Organization Detail LastModifiedTime 06/14/1906/13/2022 CBC/D IFF AMBIG UOUS DEFAU LT WBC 5.6 x10e3 /uL 3.4-10 .8 Not Available [facility] ([facility]) [address] [facility] [address], [place], [address], 06/23/2022 16:11:23 06/14/19 23 06/13/2022 CBC/D IFF AMBIG UOUS DEFAU LT RBC 5.05 x10e6 /uL 4.14-5 .80 Not Available [facility] ([facility]) [address] [facility], [place], [address], 06/23/2022 16:11:23 06/14/19 23 06/13/2022 CBC/D IFF AMBIG UOUS DEFAU LT hemoglobin 15.2 g/dL 13.0-1 7.7 Not Available [facility] ([facility]) [address] [place], [address], 06/23/2022 16:11:23 06/14/19 23 06/13/2022 CBC/D IFF AMBIG UOUS DEFAU LT hematocrit 44.9 % 37.5-5 1.0 Not Available [facility] ([facility]) [address] [place], [address], 06/23/2022 16:11:23 06/14/19 23 06/13/2022 CBC/D IFF AMBIG UOUS DEFAU LT MCV 89 fL 79-97 Not Available [facility] ([facility]) [address] [place], [address], 06/23/2022 16:11:23 06/14/19 23 06/13/2022 CBC/D IFF AMBIG UOUS DEFAU LT MCH 30.1 pg 26.6-3 3.0 Not Available [facility] ([facility]) [address] [place], [address], 06/23/2022 16:11:23 06/14/19 23 06/13/2022 CBC/D IFF AMBIG UOUS DEFAU LT MCHC 33.9 g/dL 31.5-3 5.7 Not Available [facility] ([facility]) [address] [place], [address], 06/23/2022 16:11:23 06/14/19 23 06/13/2022 CBC/D IFF AMBIG UOUS DEFAU LT RDW 13.0 % 11.6-1 5.4 Not Available [facility] ([facility]) [address] [place], [address], 06/23/2022 16:11:23 06/14/19 23 06/13/2022 CBC/D IFF AMBIG UOUS DEFAU LT platelets 250 x10e3 /uL 150-45 0 Not Available [facility] ([facility]) [address] [facility], [place], [address], 06/23/2022 16:11:23 06/14/19 23 06/13/2022 CBC/D IFF AMBIG UOUS DEFAU LT neutrophils 62 % not estab. Not Available [facility] ([facility]) [address] [facility], [place], [address], 06/23/2022 16:11:23 06/14/19 23 06/13/2022 CBC/D IFF AMBIG UOUS DEFAU LT lymphs 25 % not estab. Not Available [facility] ([facility]) [address] [facility], [place], [address], 06/23/2022 16:11:23 06/14/19 23 06/13/2022 CBC/D IFF AMBIG UOUS DEFAU LT monocytes 9 % not estab. Not Available [facility] ([facility]) [address] [facility], [place], [address], 06/23/2022 16:11:23 06/14/19 23 06/13/2022 CBC/D IFF AMBIG UOUS DEFAU LT eos 3 % not estab. Not Available [facility] ([facility]) [address] [facility], [place], [address], 06/23/2022 16:11:23 06/14/19 23 06/13/2022 CBC/D IFF AMBIG UOUS DEFAU LT basos 1 % not estab. Not Available [facility] ([facility]) [address] [facility], [place], [address], 06/23/2022 16:11:23 06/14/19 23 06/13/2022 CBC/D IFF AMBIG UOUS DEFAU LT immature cells [employer] PU[employer] TENDER Not Available [facility] ([facility]) [address] [facility], [place], [address], 06/23/2022 16:11:23 06/14/19 23 06/13/2022 CBC/D IFF AMBIG UOUS DEFAU LT neutrophils (absolute) 3.5 x10e3 /uL 1.4-7. 0 Not Available [facility] ([facility]) [address] [facility], [place], [address], 06/23/2022 16:11:23 06/14/19 23 06/13/2022 CBC/D IFF AMBIG UOUS DEFAU LT lymphs (absolute) 1.4 x10e3 /uL 0.7-3. 1 Not Available [facility] ([facility]) [address] [place], [address], 06/23/2022 16:11:23 06/14/19 23 06/13/2022 CBC/D IFF AMBIG UOUS DEFAU LT monocytes(ab solute) 0.5 x10e3 /uL 0.1-0. 9 Not Available [facility] ([facility]) [address] [place], [address], 06/23/2022 16:11:23 06/14/19 23 06/13/2022 CBC/D IFF AMBIG UOUS DEFAU LT eos (absolute) 0.1 x10e3 /uL 0.0-0. 4 Not Available [facility] ([facility]) [address] [place], [address], 06/23/2022 16:11:23 06/14/19 23 06/13/2022 CBC/D IFF AMBIG UOUS DEFAU LT baso (absolute) 0.1 x10e3 /uL 0.0-0. 2 Not Available [facility] ([facility]) [address] [place], [address], 06/23/2022 16:11:23 06/14/19 23 06/13/2022 CBC/D IFF AMBIG UOUS DEFAU LT immature granulocytes 0 % not estab. Not Available [facility] ([facility]) [address] [facility], [place], [address], 06/23/2022 16:11:23 06/14/19 23 06/13/2022 CBC/D IFF AMBIG UOUS DEFAU LT immature grans (abs) 0.0 x10e3 /uL 0.0-0. 1 Not Available [facility] ([facility]) [address] [facility], [place], [address], 06/23/2022 16:11:23 06/14/19 23 06/13/2022 CBC/D IFF AMBIG UOUS DEFAU LT NRBC [employer]ER Not Available [facility] ([facility]) [address] [facility] [address], [place], [address], 06/23/2022 16:11:23 06/14/19 23 06/13/2022 CBC/D IFF AMBIG UOUS DEFAU LT hematology comments: [employer]ER A hand- writt en panel /prof ile [...] ciate your busin ess. Not Available [facility] ([facility]) [address] [facility], [place], [address], 06/23/2022 16:11:23 06/14/19 23 06/14/2022 BASIC METAB OLIC PANEL (8) glucose 113 mg/dL 70-99 above high normal Not Available [facility] ([facility]) [address] [facility], [place], [address], 06/23/2022 16:11:24 06/14/19 23 06/14/2022 BASIC METAB OLIC PANEL (8) BUN 12 mg/dL 6-24 Not Available [facility] ([facility]) [address] [facility], [place], [address], 06/23/2022 16:11:24 06/14/19 23 06/14/2022 BASIC METAB OLIC PANEL (8) creatinine 1.05 mg/dL 0.76-1 .27 Not Available [facility] ([facility]) [address] [facility], [place], [address], 06/23/2022 16:11:24 06/14/19 23 06/14/2022 BASIC METAB OLIC PANEL (8) eGFR 83 mL/mi n/1.7 3 >59 Not Available [facility] ([facility]) [address] [facility], [place], [address], 06/23/2022 16:11:24 06/14/19 23 06/14/2022 BASIC METAB OLIC PANEL (8) BUN/creatini ne ratio 11 9-20 Not Available [facility] ([facility]) [address] [facility] [place], [address], 06/23/2022 16:11:24 06/14/19 23 06/14/2022 BASIC METAB OLIC PANEL (8) sodium 143 mmol/ L 134-14 4 Not Available [facility] ([facility]) [address] [facility] [place], [address], 06/23/2022 16:11:24 06/14/19 23 06/14/2022 BASIC METAB OLIC PANEL (8) potassium 4.7 mmol/ L 3.5-5. 2 Not Available [facility] ([facility]) [address] [facility] [place], [address], 06/23/2022 16:11:24 06/14/19 23 06/14/2022 BASIC METAB OLIC PANEL (8) chloride 105 mmol/ L 96-106 Not Available [facility] ([facility]) [address] [place], [address], 06/23/2022 16:11:24 06/14/19 23 06/14/2022 BASIC METAB OLIC PANEL (8) carbon dioxide, total 26 mmol/ L 20-29 Not Available [facility] ([facility]) [address] [place], [address], 06/23/2022 16:11:24 06/14/19 23 06/14/2022 BASIC METAB OLIC PANEL (8) calcium 10.3 mg/dL 8.7-10 .2 above high normal Not Available [facility] ([facility]) [address] [place], [address], 06/23/2022 16:11:24 06/14/19 23 06/14/2022 LIPID PANEL cholesterol, total 165 mg/dL 100-19 9 Not Available [facility] ([facility]) [address] [place], [address], 06/23/2022 16:11:25 06/14/19 23 06/14/2022 LIPID PANEL triglyceride s 96 mg/dL 0-149 Not Available [facility] ([facility]) [address] [place], [address], 06/23/2022 16:11:25 06/14/19 23 06/14/2022 LIPID PANEL HDL cholesterol 61 mg/dL >39 Not Available [facility] ([facility]) [address] [place], [address], 06/23/2022 16:11:25 06/14/19 23 06/14/2022 LIPID PANEL VLDL cholesterol татьяна 18 mg/dL 5-40 Not Available [facility] ([facility]) [address] [place], [address], 06/23/2022 16:11:25 06/14/19 23 06/14/2022 LIPID PANEL LDL chol calc ([facility]) 86 mg/dL 0-99 Not Available [facility] ([facility]) [address] [place], [address], 06/23/2022 16:11:25 06/14/19 23 06/14/2022 LIPID PANEL comment: [employer]ER Not Available [facility] ([facility]) [address] [place], [address], 06/23/2022 16:11:25 06/14/19 23 06/14/2022 HEPAT IC FUNCT ION PANEL (7) protein, total 7.0 g/dL 6.0-8. 5 Not Available [facility] ([facility]) [address] [place], [address], 06/23/2022 16:11:25 06/14/19 23 06/14/2022 HEPAT IC FUNCT ION PANEL (7) albumin 4.9 g/dL 3.8-4. 9 Not Available [facility] ([facility]) [address] [place], [address], 06/23/2022 16:11:25 06/14/19 23 06/14/2022 HEPAT IC FUNCT ION PANEL (7) bilirubin, total 0.5 mg/dL 0.0-1. 2 Not Available [facility] ([facility]) [address] [place], [address], 06/23/2022 16:11:25 06/14/19 23 06/14/2022 HEPAT IC FUNCT ION PANEL (7) bilirubin, direct 0.16 mg/dL 0.00-0 .40 Not Available [facility] ([facility]) [address] [place], [address], 06/23/2022 16:11:25 06/14/19 23 06/14/2022 HEPAT IC FUNCT ION PANEL (7) alkaline phosphatase 56 IU/L 44-121 Not Available [facility] ([facility]) [address] [facility], [place], [address], 06/23/2022 16:11:25 06/14/19 23 06/14/2022 HEPAT IC FUNCT ION PANEL (7) AST (SGOT) 24 IU/L 0-40 Not Available [facility] ([facility]) [address] [place], [address], 06/23/2022 16:11:25 06/14/19 23 06/14/2022 HEPAT IC FUNCT ION PANEL (7) ALT (SGPT) 34 IU/L 0-44 Not Available [facility] ([facility]) [address] [place], [address], 06/23/2022 16:11:25 06/14/19 23 06/23/2022 25-HY DROXY VITAM IN D LCMS D2+D3 25-hydroxy, vitamin D 23 NG/mL below low normal Refer ence Range : All Ages: Targe t level s 30 - 100 Not Available [facility] [address] [place] [address], [address], 06/23/2022 16:11:26 06/14/19 23 06/23/2022 25-HY DROXY VITAM IN D LCMS D2+D3 25-hydroxy, vitamin D-2 11 NG/mL This test was devel oped and its perfo rmanc e gamal cteri stics deter mined by [facility]. It has not been clear ed or appro ez by the Food and Drug Admin istra tion. Not Available [facility] [address] [place], [address], 06/23/2022 16:11:26 06/14/19 23 06/23/2022 25-HY DROXY VITAM IN D LCMS D2+D3 25-hydroxy, vitamin D-3 12 NG/mL This test was devel oped and its perfo rmanc e gamal cteri stics deter mined by [facility]. It has not been clear ed or appro ez by the Food and Drug Admin istra tion. Not Available [facility] [address] [facility], [place], [address], 06/23/2022 16:11:26 06/14/19 23 06/14/2022 PROST ATE-S [...] t be inter prete d as absol tlingit & haida evide nce of the prese nce or absen ce of tami dozier se. Not Available [facility] ([facility]) [address] [facility] [address], [place], [address], 06/23/2022 16:11:27 06/14/1906/13/2022 AMBIG ABBRE V BMP8 DEFAU LT ambig abbrev BMP8 default Commen t A hand- writt en panel /prof ile was recei ez from your offic e. In accor dance with the [facility] Ambig umarisa Test Code Polic y dated September 2002, we have compl eted your order by using the close st kathryn ntly or forme rlary recog nized AMA panel . We have [...] ciate your busin ess. Not Available [facility] ([facility]) [address] [facility], [place], [address], 06/23/2022 16:11:27 06/14/19 23 06/13/2022 AMBIG ABBRE [...] ciate your busin ess. Not Available [facility] ([facility]) [address] [facility], [place], [address], 06/23/2022 16:11:28 06/14/19 23 06/13/2022 CHERIIG ABBRE V HFP7 DEFAU LT ambig abbrev [...] ciate your busin ess. Not Available [facility] ([facility]) [address] [place], [address], 06/23/2022 16:11:29 11/21/19 23 11/20/2022 CBC WITH DIFFE RENTI AL/PL ATELE T WBC 5.8 x10e3 /uL 3.4-10 .8 Not Available [facility] ([facility]) [address] [facility], [place], [address], 11/21/2022 04:08:49 11/21/19 23 11/20/2022 CBC WITH DIFFE RENTI AL/PL ATELE T RBC 4.63 x10e6 /uL 4.14-5 .80 Not Available [facility] ([facility]) [address] [facility], [place], [address], 11/21/2022 04:08:49 11/21/19 23 11/20/2022 CBC WITH DIFFE RENTI AL/PL ATELE T hemoglobin 14.3 g/dL 13.0-1 7.7 Not Available [facility] ([facility]) [address] [place], [address], 11/21/2022 04:08:49 11/21/19 23 11/20/2022 CBC WITH DIFFE RENTI AL/PL ATELE T hematocrit 43.1 % 37.5-5 1.0 Not Available [facility] ([facility]) [address] [place], [address], 11/21/2022 04:08:49 11/21/1911/20/2022 CBC WITH DIFFE RENTI AL/PL ATELE T MCV 93 fL 79-97 Not Available [facility] ([facility]) [address] [place], [address], 11/21/2022 04:08:49 11/21/19 23 11/20/2022 CBC WITH DIFFE RENTI AL/PL ATELE T MCH 30.9 pg 26.6-3 3.0 Not Available [facility] ([facility]) [address] [facility], [place], [address], 11/21/2022 04:08:49 11/21/19 23 11/20/2022 CBC WITH DIFFE RENTI AL/PL ATELE T MCHC 33.2 g/dL 31.5-3 5.7 Not Available [facility] ([facility]) [address] [facility], [place], [address], 11/21/2022 04:08:49 11/21/19 23 11/20/2022 CBC WITH DIFFE RENTI AL/PL ATELE T RDW 13.6 % 11.6-1 5.4 Not Available [facility] ([facility]) [address] [facility], [place], [address], 11/21/2022 04:08:49 11/21/19 23 11/20/2022 CBC WITH DIFFE RENTI AL/PL ATELE T platelets 252 x10e3 /uL 150-45 0 Not Available [facility] ([facility]) [address] [facility], [place], [address], 11/21/2022 04:08:49 11/21/19 23 11/20/2022 CBC WITH DIFFE RENTI AL/PL ATELE T neutrophils 65 % not estab. Not Available [facility] ([facility]) [address] [facility], [place], [address], 11/21/2022 04:08:49 11/21/19 23 11/20/2022 CBC WITH DIFFE RENTI AL/PL ATELE T lymphs 20 % not estab. Not Available [facility] ([facility]) [address] [facility], [place], [address], 11/21/2022 04:08:49 11/21/19 23 11/20/2022 CBC WITH DIFFE RENTI AL/PL ATELE T monocytes 11 % not estab. Not Available [facility] ([facility]) [address] [facility], [place], [address], 11/21/2022 04:08:49 11/21/19 23 11/20/2022 CBC WITH DIFFE RENTI AL/PL ATELE T eos 3 % not estab. Not Available [facility] ([facility]) [address] [facility], [place], [address], 11/21/2022 04:08:49 11/21/19 23 11/20/2022 CBC WITH DIFFE RENTI AL/PL ATELE T basos 1 % not estab. Not Available [facility] ([facility]) [address] [facility], [place], [address], 11/21/2022 04:08:49 11/21/19 23 11/20/2022 CBC WITH DIFFE RENTI AL/PL ATELE T immature cells [employer]ER Not Available [facility] ([facility]) [address] [facility], [place], [address], 11/21/2022 04:08:49 11/21/19 23 11/20/2022 CBC WITH DIFFE RENTI AL/PL ATELE T neutrophils (absolute) 3.8 x10e3 /uL 1.4-7. 0 Not Available [facility] ([facility]) [address] [facility], [place], [address], 11/21/2022 04:08:49 11/21/19 23 11/20/2022 CBC WITH DIFFE RENTI AL/PL ATELE T lymphs (absolute) 1.2 x10e3 /uL 0.7-3. 1 Not Available [facility] ([facility]) [address] [facility], [place], [address], 11/21/2022 04:08:49 11/21/19 23 11/20/2022 CBC WITH DIFFE RENTI AL/PL ATELE T monocytes(ab solute) 0.6 x10e3 /uL 0.1-0. 9 Not Available [facility] ([facility]) [address] [facility], [place], [address], 11/21/2022 04:08:49 11/21/19 23 11/20/2022 CBC WITH DIFFE RENTI AL/PL ATELE T eos (absolute) 0.2 x10e3 /uL 0.0-0. 4 Not Available [facility] ([facility]) [address] [facility], [place], [address], 11/21/2022 04:08:49 11/21/19 23 11/20/2022 CBC WITH DIFFE RENTI AL/PL ATELE T baso (absolute) 0.1 x10e3 /uL 0.0-0. 2 Not Available [facility] ([facility]) [address] [facility], [place], [address], 11/21/2022 04:08:49 11/21/19 23 11/20/2022 CBC WITH DIFFE RENTI AL/PL ATELE T immature granulocytes 0 % not estab. Not Available [facility] ([facility]) [address] [facility], [place], [address], 11/21/2022 04:08:49 11/21/19 23 11/20/2022 CBC WITH DIFFE RENTI AL/PL ATELE T immature grans (abs) 0.0 x10e3 /uL 0.0-0. 1 Not Available [facility] ([facility]) [address] [facility], [place], [address], 11/21/2022 04:08:49 11/21/19 23 11/20/2022 CBC WITH DIFFE RENTI AL/PL ATELE T NRBC [employer]ER Not Available [facility] ([facility]) [address] [facility], [place], [address], 11/21/2022 04:08:49 11/21/19 23 11/20/2022 CBC WITH DIFFE RENTI AL/PL ATELE T hematology comments: [employer] PU[employer] TENDER Not Available [facility] ([facility]) [address] [facility] [place], [address], 11/21/2022 04:08:49 11/21/1911/21/2022 BASIC METAB OLIC PANEL (8) glucose 114 mg/dL 70-99 above high normal Not Available [facility] ([facility]) [address] [facility] [place], [address], 11/21/2022 04:08:51 11/21/19 23 11/21/2022 BASIC METAB OLIC PANEL (8) BUN 15 mg/dL 6-24 Not Available [facility] ([facility]) [address] [facility] [place], [address], 11/21/2022 04:08:51 11/21/1911/21/2022 BASIC METAB OLIC PANEL (8) creatinine 0.88 mg/dL 0.76-1 .27 Not Available [facility] ([facility]) [address] [facility] [place], [address], 11/21/2022 04:08:51 11/21/1911/21/2022 BASIC METAB OLIC PANEL (8) eGFR 100 mL/mi n/1.7 3 >59 Not Available [facility] ([facility]) [address] [facility] [place], [address], 11/21/2022 04:08:51 11/21/1911/21/2022 BASIC METAB OLIC PANEL (8) BUN/creatini ne ratio 17 9-20 Not Available [facility] ([facility]) [address] [facility] [place], [address], 11/21/2022 04:08:51 11/21/1911/21/2022 BASIC METAB OLIC PANEL (8) sodium 142 mmol/ L 134-14 4 Not Available [facility] ([facility]) [address] [facility] [place], [address], 11/21/2022 04:08:51 11/21/19 23 11/21/2022 BASIC METAB OLIC PANEL (8) potassium 4.7 mmol/ L 3.5-5. 2 Not Available [facility] ([facility]) [address] [place], [address], 11/21/2022 04:08:51 11/21/19 23 11/21/2022 BASIC METAB OLIC PANEL (8) chloride 105 mmol/ L 96-106 Not Available [facility] ([facility]) [address] [place], [address], 11/21/2022 04:08:51 11/21/1911/21/2022 BASIC METAB OLIC PANEL (8) carbon dioxide, total 23 mmol/ L 20-29 Not Available [facility] ([facility]) [address] [place], [address], 11/21/2022 04:08:51 11/21/19 23 11/21/2022 BASIC METAB OLIC PANEL (8) calcium 9.9 mg/dL 8.7-10 .2 Not Available [facility] ([facility]) [address] [place], [address], 11/21/2022 04:08:51 11/21/19 23 11/21/2022 LIPID PANEL cholesterol, total 194 mg/dL 100-19 9 Not Available [facility] ([facility]) [address] [place], [address], 11/21/2022 04:08:52 11/21/1911/21/2022 LIPID PANEL triglyceride s 64 mg/dL 0-149 Not Available [facility] ([facility]) [address] [place], [address], 11/21/2022 04:08:52 11/21/19 23 11/21/2022 LIPID PANEL HDL cholesterol 77 mg/dL >39 Not Available [facility] ([facility]) [address] [place], [address], 11/21/2022 04:08:52 11/21/19 23 11/21/2022 LIPID PANEL VLDL cholesterol татьяна 12 mg/dL 5-40 Not Available [facility] ([facility]) [address] [facility] [place], [address], 11/21/2022 04:08:52 11/21/19 23 11/21/2022 LIPID PANEL LDL chol calc ([facility]) 105 mg/dL 0-99 above high normal Not Available [facility] ([facility]) [address] [facility] [place], [address], 11/21/2022 04:08:52 11/21/1911/21/2022 LIPID PANEL comment: [employer] PU[employer] TENDER Not Available [facility] ([facility]) [address] [facility] [place], [address], 11/21/2022 04:08:52 11/21/1911/21/2022 HEPAT IC FUNCT ION PANEL (7) protein, total 6.7 g/dL 6.0-8. 5 Not Available [facility] ([facility]) [address] [place], [address], 11/21/2022 04:08:52 11/21/1911/21/2022 HEPAT IC FUNCT ION PANEL (7) albumin 4.5 g/dL 3.8-4. 9 Not Available [facility] ([facility]) [address] [place], [address], 11/21/2022 04:08:52 11/21/1911/21/2022 HEPAT IC FUNCT ION PANEL (7) bilirubin, total 0.3 mg/dL 0.0-1. 2 Not Available [facility] ([facility]) [address] [place], [address], 11/21/2022 04:08:52 11/21/19 23 11/21/2022 HEPAT IC FUNCT ION PANEL (7) bilirubin, direct 0.12 mg/dL 0.00-0 .40 Not Available [facility] ([facility]) [address] [place], [address], 11/21/2022 04:08:52 11/21/19 23 11/21/2022 HEPAT IC FUNCT ION PANEL (7) alkaline phosphatase 49 IU/L 44-121 Not Available [facility] ([facility]) [address] [place], [address], 11/21/2022 04:08:52 11/21/19 23 11/21/2022 HEPAT IC FUNCT ION PANEL (7) AST (SGOT) 16 IU/L 0-40 Not Available [facility] ([facility]) [address] [place], [address], 11/21/2022 04:08:52 11/21/19 23 11/21/2022 HEPAT IC FUNCT ION PANEL (7) ALT (SGPT) 21 IU/L 0-44 Not Available [facility] ([facility]) [address] [place], [address], 11/21/2022 04:08:52 11/21/19 23 11/20/2022 HEMOG LOBIN A1C hemoglobin A1C 5.9 % 4.8-5. 6 above high normal Predi abete s: 5.7 - 6.4 Diabe zenon: >6.4 Glyce ami contr ol for adult s with diabe zenon: <7.0 Not Available [facility] ([facility]) [address] [place], [address], 11/21/2022 04:08:53 11/21/19 23 11/20/2022 AMBIG ABBRE V BMP8 DEFAU LT ambig abbrev BMP8 default Commen t A hand- writt en panel /prof ile was recei ez from your offic e. In accor dance with the [facility] Dave uous Test Code Polic y dated September [...] ciate your busin ess. Not Available [facility] ([facility]) [address] [place], [address], 11/21/2022 04:08:54 11/21/19 23 11/20/2022 AMBIG ABBRE V LP DEFAU LT ambig abbrev LP default COMMEN T A hand- writt en panel /prof ile was recei ez from your offic e. In accor dance with the [facility] Ambig uous Test Code [facility] dated September 2002, we have compl [...] ciate your busin ess. Not Available [facility] ([facility]) [address] [facility] [address], [place], [address], 11/21/2022 04:08:54 11/21/19 23 11/20/2022 AMBIG ABBRE V HFP7 DEFAU LT ambig abbrev hfp7 default Commen t A hand- writt en panel /prof ile was recei ez from your offic e. In accor dance with the [facility] Ambig uous Test Code [facility] y dated September 2002, we have compl eted your order by using the close st curre ntly or forme rly recog nized AMA panel . We have [facility] ic Funct ion Panel (7), Test Code #[address]. If this is not the testi ng you wishe d to recei ve on this speci men, pletahira e annikaa ct the [facility] Clien t Inqui ry/Te chnic al Servi andrew Depar tment to eva fy the test order . We appre ciate your busin ess. Not Available [facility] ([facility]) [address] [facility] [address], [place], [address], 11/21/2022 04:08:55 05/28/19 24 05/29/2023 CBC WITH DIFFE RENTI AL/PL ATELE T WBC 5.7 x10e3 /uL 3.4-10 .8 Not Available [facility] ([facility]) [address] [place], [address], 05/29/2023 09:39:54 05/28/19 24 05/29/2023 CBC WITH DIFFE RENTI AL/PL ATELE T RBC 4.83 x10e6 /uL 4.14-5 .80 Not Available [facility] ([facility]) [address] [place], [address], 05/29/2023 09:39:54 05/28/19 24 05/29/2023 CBC WITH DIFFE RENTI AL/PL ATELE T hemoglobin 14.9 g/dL 13.0-1 7.7 Not Available [facility] ([facility]) [address] [place], [address], 05/29/2023 09:39:54 05/28/19 24 05/29/2023 CBC WITH DIFFE RENTI AL/PL ATELE T hematocrit 44.3 % 37.5-5 1.0 Not Available [facility] ([facility]) [address] [place], [address], 05/29/2023 09:39:54 05/28/19 24 05/29/2023 CBC WITH DIFFE RENTI AL/PL ATELE T MCV 92 fL 79-97 Not Available [facility] ([facility]) [address] [facility], [place], [address], 05/29/2023 09:39:54 05/28/19 24 05/29/2023 CBC WITH DIFFE RENTI AL/PL ATELE T MCH 30.8 pg 26.6-3 3.0 Not Available [facility] ([facility]) [address] [facility], [place], [address], 05/29/2023 09:39:54 05/28/19 24 05/29/2023 CBC WITH DIFFE RENTI AL/PL ATELE T MCHC 33.6 g/dL 31.5-3 5.7 Not Available [facility] ([facility]) [address] [facility] [address], [place], [address], 05/29/2023 09:39:54 05/28/19 24 05/29/2023 CBC WITH DIFFE RENTI AL/PL ATELE T RDW 13.1 % 11.6-1 5.4 Not Available [facility] ([facility]) [address] [facility], [place], [address], 05/29/2023 09:39:54 05/28/19 24 05/29/2023 CBC WITH DIFFE RENTI AL/PL ATELE T platelets 274 x10e3 /uL 150-45 0 Not Available [facility] ([facility]) [address] [facility], [place], [address], 05/29/2023 09:39:54 05/28/19 24 05/29/2023 CBC WITH DIFFE RENTI AL/PL ATELE T neutrophils 68 % not estab. Not Available [facility] ([facility]) [address] [facility], [place], [address], 05/29/2023 09:39:54 05/28/19 24 05/29/2023 CBC WITH DIFFE RENTI AL/PL ATELE T lymphs 19 % not estab. Not Available [facility] ([facility]) [address] [facility], [place], [address], 05/29/2023 09:39:54 05/28/19 24 05/29/2023 CBC WITH DIFFE RENTI AL/PL ATELE T monocytes 10 % not estab. Not Available [facility] ([facility]) [address] [facility], [place], [address], 05/29/2023 09:39:54 05/28/19 24 05/29/2023 CBC WITH DIFFE RENTI AL/PL ATELE T eos 2 % not estab. Not Available [facility] ([facility]) [address] [facility], [place], [address], 05/29/2023 09:39:54 05/28/19 24 05/29/2023 CBC WITH DIFFE RENTI AL/PL ATELE T basos 1 % not estab. 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 0 Not Available [facility] ([facility]) [address] [place], [address], 05/29/2023 09:39:54 05/28/19 24 05/29/2023 CBC WITH DIFFE RENTI AL/PL ATELE T lymphs (absolute) 1.1 x10e3 /uL 0.7-3. 1 Not Available [facility] ([facility]) [address] [place], [address], 05/29/2023 09:39:54 05/28/19 24 05/29/2023 CBC WITH DIFFE RENTI AL/PL ATELE T monocytes(ab solute) 0.5 x10e3 /uL 0.1-0. 9 Not Available [facility] ([facility]) [address] [facility], [place], [address], 05/29/2023 09:39:54 05/28/19 24 05/29/2023 CBC WITH DIFFE RENTI AL/PL ATELE T eos (absolute) 0.1 x10e3 /uL 0.0-0. 4 Not Available [facility] ([facility]) [address] [facility], [place], [address], 05/29/2023 09:39:54 05/28/19 24 05/29/2023 CBC WITH DIFFE RENTI AL/PL ATELE T baso (absolute) 0.1 x10e3 /uL 0.0-0. 2 Not Available [facility] ([facility]) [address] [facility], [place], [address], 05/29/2023 09:39:54 05/28/19 24 05/29/2023 CBC WITH DIFFE RENTI AL/PL ATELE T immature granulocytes 0 % not estab. Not Available [facility] ([facility]) [address] [facility], [place], [address], 05/29/2023 09:39:54 05/28/19 24 05/29/2023 CBC WITH DIFFE RENTI AL/PL ATELE T immature grans (abs) 0.0 x10e3 /uL 0.0-0. 1 Not Available [facility] ([facility]) [address] [facility], [place], [address], 05/29/2023 09:39:54 05/28/19 24 05/29/2023 CBC WITH DIFFE RENTI AL/PL ATELE T NRBC [employer] Not Available [facility] ([facility]) [address] [facility], [place], [address], 05/29/2023 09:39:54 05/28/19 24 05/29/2023 CBC WITH DIFFE BLACK AL/ADRIAN Strong hematology comments: [employer]ER Not Available [facility] ([facility]) [address] [facility], [place], [address], 05/29/2023 09:39:54 05/28/19 24 05/29/2023 BASIC METAB OLIC PANEL (8) glucose 121 mg/dL 70-99 above high normal Not Available [facility] ([facility]) [address] [facility], [place], [address], 05/29/2023 09:39:56 05/28/19 24 05/29/2023 BASIC METAB OLIC PANEL (8) BUN 15 mg/dL 6-24 Not Available [facility] ([facility]) [address] [facility], [place], [address], 05/29/2023 09:39:56 05/28/19 24 05/29/2023 BASIC METAB OLIC PANEL (8) creatinine 1.06 mg/dL 0.76-1 .27 Not Available [facility] ([facility]) [address] [facility], [place], [address], 05/29/2023 09:39:56 05/28/19 24 05/29/2023 BASIC METAB OLIC PANEL (8) eGFR 81 mL/mi n/1.7 3 >59 Not Available [facility] ([facility]) [address] [facility], [place], [address], 05/29/2023 09:39:56 05/28/19 24 05/29/2023 BASIC METAB OLIC PANEL (8) BUN/creatini ne ratio 14 9-20 Not Available [facility] ([facility]) [address] [facility] [place], [address], 05/29/2023 09:39:56 05/28/19 24 05/29/2023 BASIC METAB OLIC PANEL (8) sodium 141 mmol/ L 134-14 4 Not Available [facility] ([facility]) [address] [place], [address], 05/29/2023 09:39:56 05/28/19 24 05/29/2023 BASIC METAB OLIC PANEL (8) potassium 4.3 mmol/ L 3.5-5. 2 Not Available [facility] ([facility]) [address] [place], [address], 05/29/2023 09:39:56 05/28/19 24 05/29/2023 BASIC METAB OLIC PANEL (8) chloride 103 mmol/ L 96-106 Not Available [facility] ([facility]) [address] [place], [address], 05/29/2023 09:39:56 05/28/19 24 05/29/2023 BASIC METAB OLIC PANEL (8) carbon dioxide, total 26 mmol/ L 20-29 Not Available [facility] ([facility]) [address] [place], [address], 05/29/2023 09:39:56 05/28/19 24 05/29/2023 BASIC METAB OLIC PANEL (8) calcium 10.1 mg/dL 8.7-10 .2 Not Available [facility] ([facility]) [address] [place], [address], 05/29/2023 09:39:56 05/28/19 24 05/29/2023 LIPID PANEL cholesterol, total 181 mg/dL 100-19 9 Not Available [facility] ([facility]) [address] [place], [address], 05/29/2023 09:39:57 05/28/19 24 05/29/2023 LIPID PANEL triglyceride s 118 mg/dL 0-149 Not Available [facility] ([facility]) [address] [place], [address], 05/29/2023 09:39:57 05/28/19 24 05/29/2023 LIPID PANEL HDL cholesterol 64 mg/dL >39 Not Available [facility] ([facility]) [address] [place], [address], 05/29/2023 09:39:57 05/28/19 24 05/29/2023 LIPID PANEL VLDL cholesterol татьяна 21 mg/dL 5-40 Not Available [facility] ([facility]) [address] [place], [address], 05/29/2023 09:39:57 05/28/19 24 05/29/2023 LIPID PANEL LDL chol calc ([facility]) 96 mg/dL 0-99 Not Available [facility] ([facility]) [address] [facility] [place], [address], 05/29/2023 09:39:57 05/28/19 24 05/29/2023 LIPID PANEL comment: [employer]ER Not Available [facility] ([facility]) [address] [place], [address], 05/29/2023 09:39:57 05/28/19 24 05/29/2023 HEPAT IC FUNCT ION PANEL (7) protein, total 6.9 g/dL 6.0-8. 5 Not Available [facility] ([facility]) [address] [facility] [place], [address], 05/29/2023 09:39:58 05/28/19 24 05/29/2023 HEPAT IC FUNCT ION PANEL (7) albumin 4.6 g/dL 3.8-4. 9 Not Available [facility] ([facility]) [address] [facility] [place], [address], 05/29/2023 09:39:58 05/28/19 24 05/29/2023 HEPAT IC FUNCT ION PANEL (7) bilirubin, total 0.6 mg/dL 0.0-1. 2 Not Available [facility] ([facility]) [address] [place], [address], 05/29/2023 09:39:58 05/28/19 24 05/29/2023 HEPAT IC FUNCT ION PANEL (7) bilirubin, direct 0.14 mg/dL 0.00-0 .40 Not Available [facility] ([facility]) [address] [place], [address], 05/29/2023 09:39:58 05/28/19 24 05/29/2023 HEPAT IC FUNCT ION PANEL (7) alkaline phosphatase 56 IU/L 44-121 Not Available [facility] ([facility]) [address] [place], [address], 05/29/2023 09:39:58 05/28/19 24 05/29/2023 HEPAT IC FUNCT ION PANEL (7) AST (SGOT) 20 IU/L 0-40 Not Available [facility] ([facility]) [address] [place], [address], 05/29/2023 09:39:58 05/28/19 24 05/29/2023 HEPAT IC FUNCT ION PANEL (7) ALT (SGPT) 29 IU/L 0-44 Not Available [facility] ([facility]) [address] [place], [address], 05/29/2023 09:39:58 05/28/19 24 05/29/2023 HEMOG LOBIN A1C hemoglobin A1C 6.1 % 4.8-5. 6 above high normal Predi abete s: 5.7 - 6.4 Diabe zenon: >6.4 Glyce ami contr ol for adult s with diabe zenon: <7.0 Not Available [facility] ([facility]) [address] [place], [address], 05/29/2023 09:39:59 05/28/19 24 05/29/2023 PROST ATE-S [...] t be inter prete d as absol tlingit & haida evide nce of the prese nce or absen ce of tami dozier se. Not Available [facility] ([facility]) [address] [facility], [place], [address], 05/29/2023 09:40:00 05/28/19 24 05/29/2023 VITAM IN [...] um and D. Huang gordon [place]: [facility] . 2. Valdez TODD, Eleazar malloy [place], Roberta off-F errar i BELTRAN, et al. Evalu ation , treat ment, and preve ntion of vitam in D defic iency : an Endoc rine Socie ty clini татьяна pract ice guide line. JCEM. 2010; 96(7) :191 -30. Not Available [facility] ([facility]) [address] [facility], [place], [address], 05/29/2023 09:40:01 05/28/19 24 05/28/2023 AMBIG ABBRE V LP DEFAU LT ambig abbrev LP default COMMEN T A hand- writt en panel /prof ile was recei ez from your offic e. In accor dance with the [facility] Ambig uous Test Code [facility] y dated September 2002, we have [...] ciate your busin ess. Not Available [facility] ([facility]) [address] [facility], [place], [address], 05/29/2023 09:40:02 05/28/19 24 05/28/2023 AMBIG ABBRE V HFP7 DEFAU LT ambig abbrev hfp7 default Commen t A hand- writt en panel /prof ile was recei ez from your offic e. In accor dance with the [facility] Ambig uous Test Code [facility] y dated September 2002, we have [...] ciate your busin ess. Not Available [facility] ([facility]) [address], [place], [address], 05/29/2023 09:40:04 05/09/19 23 05/09/2022 CT, abdom en, w/o contr ast No observ ation record ed. [id number], [place], [address], 05/21/2022 04:58:15 07/02/19 23 07/01/2022 XR, abdom en No observ ation record ed. [email or web address] [address], [place], [address], 07/10/2022 16:27:14 12/25/19 23 12/23/2022 XR, chest , 2 view No observ ation record ed. [email or web address] [address], [place], [address], 12/24/2022 15:34:35 06/25/19 24 06/24/2023 LDCT, chest , for lung cance r scree [facility]onaldo [facility] [place] [phone] Patien t Name: MICHAEL LEDBETTER ion #: [id number] Sex: M : 1965 3 Dictat ed By: Martell Cardenas ms Attend ing Physic brissa: JENNIFER REAGAN Orderi Physic brissa: JENNIFER REAGAN Exam Date: 2023 [...] is normal in calibe r Page 1 [facility] [address] [place] [address] Patien t Name: MICHAEL LEDBETTER ion #: [id number] Sex: M : 1965 3 Dictat ed By: Martell Cardenas ms Attend ing Physic brissa: LIAN CARRASCO [facility] ([place], [place]) Physic brissa: JENNIFER REAGAN Exam Date: 2023 [...] g/-/me edwin/AC R/File s/RADS /Lung- RADS/L fabiano-RA - 2.pdf Electr onical ly Signed by: Martell Cardenas ms at 2023 07:35: 59 AM Page 2 [email or web address] [facility] ([facility]) [address] [place], [address], 06/25/2023 12:05:59 Result Notes Documentation Provider Name and Address Organization Details Recorded Time Ldct, Chest, For Lung Cancer Screening : [facility] [address] [place] [address] Patient Name: MICHAEL LEDBETTER Sex: M : 1965 Dictated By: Vernell Pop Attending Physician: LILIANA CH Ordering Physician: LILIANA CH Exam Date: 06/24/2023 15:25 PM Exam Name: CT LOW DOSE CNCR SCREENING Admitting Diagnosis(es): CT Chest without intravenous contrast INDICATION: Nicotine dependence. TECHNIQUE: Multidetector spiral CT of the chest was performed from the lung apices to the upper abdomen utilizing axial images. Coronal and sagittal multiplanar reformats were performed. Radiation Dose : 1. Chest: CTDI volume is 2.1 mGy. Dose-length product is 84 mGy*cm The dose indicators for CT are the volume Computed Tomography (CT) Dose Index (CTDIvol) and the Dose Length Product (DLP), and are measured in units of mGy and mGy-cm, respectively. These indicators are not patient dose, but values generated from the CT scanner acquisition factors. The report includes radiation exposure data for exposures received during this examination. Comparison: 11/21/2020. Findings: Lower neck: Unremarkable thyroid Lungs: No evidence of pulmonary nodules. Mild emphysematous changes. Pleura: No pleural effusions. No pneumothorax Heart/Vascular Structures: The heart is normal in size. No pericardial effusion There are coronary artery calcifications. Normal caliber aorta. There are atherosclerotic calcifications of the thoracic aorta including the arch. The main pulmonary artery is normal in caliber Page [address] [address] Patient Name: MICHAEL LEDBETTER Sex: M : 1965 Dictated By: Vernell Pop Attending Physician: CHIO FORD Ordering Physician: LILIANA CH Exam Date: 06/24/2023 15:25 PM Exam Name: CT LOW DOSE CNCR SCREENING Admitting Diagnosis(es): Lymph Nodes: There are calcified subcarinal and right hilar lymph nodes. Musculoskeletal: No fracture or suspicious bone lesions. Body wall: Unremarkable Upper abdomen: Calcifications in the spleen compatible with granulomas. IMPRESSION: 1. Mild emphysematous changes. 2. No pulmonary nodules. 3. Coronary artery calcifications. 4. Old granulomatous disease. Lung-RADS: Category 1: Recommendation: Continue annual screening with LDCT [email or web address] Page [address] [facility], [place] - [facility] [employer] 06/25/2023 12:05:59 Problems Name Problem SNOMED Code Status Onset Date Resolution Date Notes Provider Name and Address Organization Details Recorded Time Tobacco user 991285166 Active Not Available [employer] 3 04:49:39 Blood glucose outside reference range 282353228 Active Not Available [facility] 3 04:49:39 Pure hyperchole sterolemia 888872740 Active Not Available [facility] 3 04:49:39 Chest pain 68959669 Completed Not Available [facility] 3 04:49:39 Essential hypertensi on 22412853 Active Not Available [facility] 3 04:49:39 Neck pain 86611221 Completed Not Available [facility] 3 04:49:40 Coronary arterioscl erosis 68565058 Active 2017 Not Available [facility] 3 04:49:39 Gastroesop hageal reflux disease 384673786 Active 2021 Not Available [facility] 3 04:49:39 Abdominal discomfort 93462868 Active 2021 Not Available [facility] 3 04:49:39 Abdominal pain 09687440 Active 2021 Not Available [facility] 3 04:49:39 Vitamin D deficiency 14488471 Active 2021 Not Available [facility] 3 04:49:39 Hyperlipid emia 13598124 Active 2021 Not Available [facility] 3 04:49:39 Large prostate 546028492 Active 2021 Not Available [facility] 3 04:49:39 Chronic obstructiv e pulmonary disease 27161739 Active 2021 Not Available [facility] 3 04:49:39 Gastroesop hageal reflux disease without esophagiti s 185353671 Active 2022 Liliana Ch MD [address], [place], [address] , [employer] 3 17:18:16 Lumbar spondylosi s 407112933 Active 2022 Liliana Ch MD [address], [address], [place], [address] , [employer] 3 17:19:36 Prediabete s 787000014 Active 2022 Liliana Ch MD [address], [place], [address] , [employer] 3 08:34:30 Upper respirator y infection 24207321 Active 2022 RODERICK Calhoun [address], [place], [address] , [employer] 3 12:31:36 Cough 01106328 Active 2022 Liliana Ch MD [address], [place], [address] , [facility] [employer] [facility] 3 18:30:42 Dyspnea 876005858 Active 2022 Liliana Ch MD [address], [place], [address] , [facility] [employer] [facility] 3 12:55:31 Persistent cough 310500222 Active 2022 Liliana Ch MD [address], [place], [address] , [facility] [employer] [facility] 15:34:47 Problem Notes None recorded. Procedures Surgical History Date Name Laterality Status Provider Name and Address Organization Details Recorded Time 03/04/20 22 cardiac catheterization completed Not Available [facility] 05/21/2022 04:42:50 01/10/20 22 cholecystectomy completed Not Available [facility] 05/21/2022 04:42:50 08/22/19 18 Cardiovascular Surgery completed Not Available [facility] 05/21/2022 04:42:50 Orthopedic Surgery completed Not Available [facility] 05/21/2022 04:42:50 Imaging Results None recorded. Procedure Notes None recorded. Medical Equipment None [...] ular syringe TO BE ADMINIST ERED BY PHARMACI ST FOR IMMUNIZA TION 04/27 completed Not Available [...] Available Not Available Not Available Fluarix Quad (PF) 60 mcg (15 mcg x 4)/0.5 mL IM syringe TO BE ADMINIST ERED BY PHARMACI ST FOR IMMUNIZA TION 12/23 completed Not Available Not Available Not Available Fluzone Quad (P F) 60 mcg(15 mcgx4)/0. 5 mL intramusc ular syringe TO BE ADMINIST ERED BY PHARMACI ST FOR IMMUNIZA TION 04/27 completed Not Available Not Available Not Available Afluria Qd 2018- (36 mos up)(PF)60 mcg (15 mcg x4)/0.5 mL IM syringe TO BE ADMINIST ERED BY PHARMACI ST FOR IMMUNIZA TION 05/24 completed Not Available Not Available Not Available Afluria Qd 2019- (36 mos up)(PF)60 mcg (15 mcg x4)/0.5 mL IM syringe PHARMACY ADMINIST ERED 02/23 completed Not Available Not Available Not Available Vitals Date Recorded Systolic And Diastolic Provider Name and Address Organization Details Last Updated DateTime 05/28/2023 162/90 mm[Hg] Kellen Velasquez RN [facility] 05/28/2023 09:36:08 Date Recorded Body height Body mass index (BMI) Body weight Body temperature Heart rate Oxygen saturation Oxygen saturation in Arterial blood by Pulse oximetry Systolic And Diastolic Provider Name and Address Organization Details Last Updated DateTime 4 172.72 cm 33.3 kg/m2 53180.7 3 g 97.7 [degF] 86 /min 98 % 98 % 176/110 mm[Hg] Yas Gamboa RN [facility] [place] 4 09:10:02 Date Recorded Body height Body mass index (BMI) Body weight Body temperature Heart rate Oxygen saturation Oxygen saturation in Arterial blood by Pulse oximetry Systolic And Diastolic Provider Name and Address Organization Details Last Updated DateTime 3 172.72 cm 30 kg/m2 96067.7 g 97.9 [degF] 79 /min 99 % 99 % 148/88 mm[Hg] Miller Claros CMA [employer] 2000 3 16:56:41 Date Recorded Body mass index (BMI) Body height Heart rate Body temperature Body weight Systolic And Diastolic Provider Name and Address Organization Details Last Updated DateTime 2 29.5 kg/m2 172.72 cm 60 /min 97.3 [degF] 73817.9 2 g 140/80 mm[Hg] Not Available [facility] 3 04:48:12 Date Recorded Body height Body mass index (BMI) Body weight Body temperature Heart rate Oxygen saturation Oxygen saturation in Arterial blood by Pulse oximetry Systolic And Diastolic Provider Name and Address Organization Details Last Updated DateTime 3 172.72 cm 30.7 kg/m2 45857.6 6 g 98.2 [degF] 79 /min 98 % 98 % 158/92 mm[Hg] Sammie Soto RN [facility] 3 08:14:59 Date Recorded Body mass index (BMI) Body height Oxygen saturation Oxygen saturation in Arterial blood by Pulse oximetry Heart rate Body temperature Body weight Systolic And Diastolic Provider Name and Address Organization Details Last Updated DateTime 2 30.6 kg/m2 172.72 cm 100 % 100 % 70 /min 97.9 [degF] 58331.0 7 g 120/72 mm[Hg] Not Available [facility] 3 04:48:12 Social History Question Answer Notes LastModified by Organization Details LastModified Time Tobacco Smoking Status Former Smoker week before Phan 02/2021 started smoking age 15 1 ppd smoking until 2020 Liliana Ch MD [address] [facility], [facility] [address], [place], [address], [facility] [place] 05/28/2023 09:17:08 Do You Have An Advance Directive? No MIGRATION.0301 [id number] Information not available 05/21/2022 What Is Your Level Of Caffeine Consumption? Moderate MIGRATION.030 [id number] Information not available 05/21/2022 How Much Tobacco Do You Chew? None MIGRATION.030 [id number] Information not available 05/21/2022 In The 14 Days Before Symptom Onset, Have You Had Close Contact With A Laboratory-conf irmed COVID-19 While That Case Was Ill? No MIGRATION.030 [id number] Information not available 05/21/2022 In The 14 Days Before Symptom Onset, Have You Had Close Contact With A Person Who Is Under Investigation For COVID-19 While That Person Was Ill? No MIGRATION.0301 [id number] Information not available 05/21/2022 What Type Of Diet Are You Following? REGULAR MIGRATION.0301 [id number] Information not available 05/21/2022 Which Illicit Or Recreational Drugs Have You Used? None MIGRATION.0301 [id number] Information not available 05/21/2022 Have There Been Any Changes To Your Family Or Social Situation? No MIGRATION.0301 895842 Information not available 05/21/2022 What Is The Fluoride Status Of Your Home? Unknown MIGRATION.0301 292401 Information not available 05/21/2022 When Did You Quit Smoking? 1-5yearssincelastc igarette MIGRATION.0301 [id number] Information not available 05/21/2022 Are There Any Guns Present In Your Home? Yes MIGRATION.0301 600624 Information not available 05/21/2022 Do You Use Insect Repellent Routinely? No MIGRATION.0301 [id number] Information not available 05/21/2022 Where Do You Live? SingleLevelHouse MIGRATION.0301 566354 Information not available 05/21/2022 Do You Have A Medical Power Of Cytogenetic Technologist? No MIGRATION.0301 [id number] Information not available 05/21/2022 What Was The Date Of Your Most Recent Tobacco Screening? 05/28/2023 [email or web address] Information not available 06/15/2023 What Is Your Current Pack Years? 30ormorepackyears MIGRATION.0301 320356 Information not available 05/21/2022 Have You Ever Been Counseled For Unhealthy Alcohol Use? No MIGRATION.0301 [id number] Information not available 05/21/2022 Do You Have Any Pets? No MIGRATION.0301 [id number] Information not available 05/21/2022 What Is Your Relationship Status? MIGRATION.0301 229225 Information not available 05/21/2022 Do You Use Your Seat Belt Or Car Seat Routinely? Yes MIGRATION.0301 277854 Information not available 05/21/2022 Do You Have Smoke And Carbon Monoxide Detectors In Your Home? Yes MIGRATION.0301 701448 Information not available 05/21/2022 At What Age Did You Start Smoking Tobacco? 15 MIGRATION.0301 947648 Information not available 05/21/2022 Are You Passively Exposed To Smoke? No MIGRATION.0301 965684 Information not available 05/21/2022 Are There Any Smokers In Your House? No MIGRATION.0301 124804 Information not available 05/21/2022 How Much Tobacco Do You Smoke? No MIGRATION.0301 044295 Information not available 05/21/2022 What Types Of Sporting Activities Do You Participate In? None MIGRATION.0301 970296 Information not available 05/21/2022 Do You Use Sunscreen Routinely? No MIGRATION.0301 215981 Information not available 05/21/2022 Has Tobacco Cessation Counseling Been Provided? No N/A MIGRATION.0301 576240 Information not available 05/21/2022 How Many Years Have You Smoked Tobacco? 40 MIGRATION.0301 356170 Information not available 05/21/2022 Have You Recently Traveled Abroad? No MIGRATION.0301 695106 Information not available 05/21/2022 Do You Have Any Dietary Restrictions? No MIGRATION.0301 937639 Information not available 05/21/2022 Sex: Male Functional Status Question Answer Note LastModified by [employer] Details LastModified Time Do you use any illicit or recreational drugs? No MIGRATION.293304 3869 Information not available 05/21/2022 Do you or have you ever used any other forms of tobacco or nicotine? No MIGRATION.277822 8223 Information not available 05/21/2022 What is your level of alcohol consumption? Occasional MIGRATION.312676 1989 Information not available 05/21/2022 Do you or have you ever used smokeless tobacco? 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 Never used electronic cigarettes MIGRATION.793687 6102 Information not available 05/21/2022 What is your exercise level? Occasional MIGRATION.138227 5817 Information not available 05/21/2022 Mental Status Question Answer Note LastModified by [employer] Details LastModified Time Do you feel stressed (tense, restless, nervous, or anxious, or unable to sleep at night)? [id number] MIGRATION.[id number] 6 Information not available 05/21/2022 Family History Relationship Description Onset Age of this Age Resolved Age Notes LastModified by Organization Details LastModified Time Father Diabetes mellitus MIGRATION.392 [id number] Not available 05/21/2022 04:42:57 Mother Cerebrovascu lar accident 50s MIGRATION.441 [id number] Not available 05/21/2022 04:42:57 Mother Hypertensive disorder MIGRATION.862 [id number] Not available 05/21/2022 04:42:57 Medical History Condition [...] HAVE YOU BEEN HOSPITALIZED OR SEEN IN [facility] IN THE PAST YEAR ? N ATHEROSCLEROSIS [...] virus, quadrivalent, PF 6 completed Not Available [facility] 05/21/2022 04:57:43 zoster recombinant 3 completed Not Available [facility] 05/21/2022 04:57:43 Pneumococcal conjugate PCV 13 1 completed Not Available [facility] 05/21/2022 04:57:43 Influenza, split virus, trivalent, preservative 1 completed Not Available [facility] 05/21/2022 04:57:43 Influenza, split virus, quadrivalent, preservative 0 completed Not Available [facility] 05/21/2022 04:57:43 Influenza, split virus, quadrivalent, preservative 9 completed Not Available [facility] 05/21/2022 04:57:43 Tdap 9 completed Not Available [facility] 05/21/2022 04:57:43 Tdap 8 completed Not Available [facility] 05/21/2022 04:57:43 Influenza, split virus, quadrivalent, preservative 8 completed Not Available [facility] 05/21/2022 04:57:43 Influenza, split virus, quadrivalent, preservative 7 completed Not Available [facility] 05/21/2022 04:57:44 Influenza, split virus, quadrivalent, preservative 2 completed Not Available [facility] 05/21/2022 04:57:44 COVID-19, mRNA, LNP-S, PF, 100 mcg/0.5mL dose or 50 mcg/0.25mL dose 2 completed Not Available [facility] 05/21/2022 04:57:44 COVID-19, mRNA, LNP-S, PF, 100 mcg/0.5mL dose or 50 mcg/0.25mL dose 1 completed Not Available [facility] 05/21/2022 04:57:44 COVID-19, mRNA, LNP-S, PF, 100 mcg/0.5mL dose or 50 mcg/0.25mL dose 1 completed Not Available [facility] 05/21/2022 04:57:44 Past Encounters Encounter ID Performer Location Encounter Start Date Encounter Closed Date Diagnosis/Indication Diagnosis SNOMED-CT Code Diagnosis ICD10 Code Diagnosis IMO Codes Diagnosis Note [id number] Ashok Matute MD [facility] Internal Med [facility] [address] [facility], [facility] [address] [place] [address] 06/29/2020 00:00:00 07/08/2020 18:44:58 [id number] MD KAYLA Banks_[facility] Internal Med [place] gundreson [address] [place] [address] [place] [address] 11/14/2020 00:00:00 11/14/2020 15:17:16 [id number] MD KAYLA Bakns_[facility] Internal Med [place] gund[place] [address] [place] [address] [place] [address] 02/13/2021 00:00:00 02/13/2021 15:47:00 [id number] Chelsie tafoya MD [facility] Internal Med Qing gunderson [address] [place] [address] [place] [address] 04/08/2021 00:00:00 04/10/2021 10:03:51 [id number] Chelsie tafoya MD [facility] Internal Med Qing gunderson [address] [place] [address] [address], [place] [address] 09/16/2021 00:00:00 09/16/2021 17:51:19 [id number] Liliana Ch MD [facility] Primary Care [address] [place] [address] 03/19/2022 00:00:00 03/21/2022 11:18:18 [id number] Liliana Ch MD [facility] Primary Care [address] [place] [address] 06/18/2022 16:48:51 06/18/2022 17:28:02 Gastroesophageal reflux disease without esophagitis 357719420 K21.9 famotidine 40 mg dailyconti nue PPIAvoid greasy/spi cy/acidic foodEat small, frequent mealsCall if any worsening symptoms including increased pain or blood in stools or if symptoms do not resolve in 14 days Lumbar spondylosis 54500 0009 M47.896 unclear if the source of his pain is GI or muskuloske letaltrial of short course of prednisone with food, avoid other nsaids [id number] Liliana Ch MD [facility] Primary Care [address] [place] [address] 11/20/2022 08:09:11 11/20/2022 08:53:59 Hyperlipidemia 71229315 E78.5 Essential hypertension 14905815 I10 hold carvedilol for 2 weeks to see if it has impact on GI symptomsch kyler home bps 2x per week and send portal update in 2 weeks Prediabetes 670555365 R7 3.03 Gastroesop hageal reflux disease without esophagitis 506589840 K21.9 Has had extensive workup with GIhold carvedilol as noted abovesend update through portal in 2 weeks [id number] Liliana Ch MD [facility] Primary Care Minerva gunderson [address] [facility] [address] [place] [address] 05/28/2023 09:00:44 05/28/2023 09:37:10 Adult health examination 218744401 Z00.00 LDCT orderedRem ain nonsmokerP SA and fasting labs orderedCol oguard normal 2021 per GI note, repeat nnual flu vaccineRec ommend covid boosterTda p 2019Shingr ix 02/10, 04/14Prevna r 13 1Prevna r 20 2022 Tobacco user 133338930 Z 72.0 Remain nonsmokerL DCT ordered Hyperlipidemia 43346005 E78.5 Prediabetes 257050594 R7 3.03 Essential hypertension 41183539 I10 Vitamin D deficiency 347 85038 E55.9 Screening for malignant neoplasm of prostate 961928354 Z12.5 Health Concerns Section Related Observation LastModified by Organization Detai ls LastModified Time None Recorded Concern Status LastModified by Organization Details LastModified Time None Recorded Advance Directives Directive N: Payers Insurance Date Sequence Insurance Name Policy Number Policy Luther Covered Member ID Luther Member ID Guarantor Name 07/30/2023 1 [employer] [id number] Michael Ledbetter [id number] Michael Ledbetter Notes Date Note Type Note Provider Name and Address Organization Details Recorded Time 06/18/2022 text/html ROS as noted in the HPI Had f/u with cardiology in August, saw him in March does not feel well he d/c his amlodipine as instructed-home bps are running 114-130s/80s had labs at [facility] on Thursday [address] showed lumbar spondylosis he is taking his pantoprazole as prescribed-no heartburn/GERD has sharp pain across waist, can be across left side, sharp pain, occ eating makes it worse. [place] nauseated. He did stop pantoprazole for a while but then restarted it, didn't notice much different. Liliana Ch MD [address], [place], [address], [place] 06/20/2022 07:53:22 11/20/2022 text/html ROS as noted in the HPI Had f/u with cardiology in August, saw him in March does not feel well he d/c his amlodipine as instructed-home bps are running 114-130s/80s had labs at [facility] on Thursday [address] showed lumbar spondylosis he is taking his pantoprazole as prescribed-no heartburn/GERD has sharp pain across waist, can be across left side, sharp pain, occ eating makes it worse. [place] nauseated. He did stop pantoprazole for a [...] epigastric pain/pressure. He takes tums, tylenol daily. Liliana Ch MD [address], [place], [address], [place] 11/20/2022 08:39:54 05/28/2023 text/html Here for check up Liliana Ch MD [address], [place], [address], [place] 06/15/2023 19:29:28
--- NOTE | 2024-12-23 08:52 | WPDCARIOSTRE ---
Nuclear Stress Test INDICATIONS Indications: Chest pain PROCEDURE Procedure Performed: Myocardial Perf Spect-Multi Procedure: -Lexiscan EKG portion nuclear stress test. Findings: Baseline EKG shows sinus rhythm with PVCs. EKG portion post Lexiscan injection shows no ischemic changes. Patient tolerated procedure well. CONCLUSION Conclusion: -frequent PVCs at baseline and during the Lexiscan stress test. -negative EKG portion of Lexiscan stress test for ischemia. -recommend to follow up on nuclear images
== END 2024-12-22 08:36 | disposition home or self-care (01) ==
PROVIDERS: PCP Family Medicine; Visit Provider Internal Medicine Cardiovascular Disease
DX: I25.118 Atherosclerotic heart disease of native coronary artery with other forms of angina pectoris (principal); I49.3 Ventricular premature depolarization
CPT/HCPCS: 78452; 93017; A9502; J2785